=== PATIENT | female | born 1950 | race Caucasian/White ===

== ENCOUNTER 2023-06-02 02:58 | Emergency (ER) | payer MEDICARE, BC, SELFPAY ==
[2023-06-02 03:05] VITALS: BP 158/97; PULSE 83; RESP 16; TEMP 36.4; O2SAT 95; BMI 28.9
--- NOTE | 2023-06-02 03:21 | ED_ITS ---
HPI - General Adult General Chief complaint: Sore Throat Stated complaint: difficulty breathing Time Seen by Provider: 06/02/23 03:20 History of Present Illness HPI narrative: Patient is a 73-year-old woman who comes in today with a 3 day history of pharyngitis. She was seen at the [facility] earlier today rapid strep and COVID testing were negative. Patient was placed on azithromycin and prednisone. She states the pain is severe. She has minimal cough no fevers no chills no night sweats no nausea no vomiting. She states that she is unable to control the pain with Tylenol Motrin. Related Data Home Medications Medication Instructions Recorded Confirmed amoxicillin 250 mg capsule 250 mg PO 01/19/22 01/30/23 omeprazole 20 mg capsule,delayed 20 mg PO QDAY 01/19/22 06/02/23 release azithromycin 250 mg tablet 250 mg PO DIRECTED 06/02/23 06/02/23 rosuvastatin 20 mg tablet 20 mg PO QPM 06/02/23 06/02/23 Allergies Allergy/AdvReac Type Severity Reaction Status Date / Time cefpodoxime Allergy Hives Verified 01/30/23 09:23 ciprofloxacin Allergy Verified 01/30/23 09:23 metronidazole Allergy Hives Verified 01/30/23 09:23 nitrofurantoin Allergy Verified 01/30/23 09:23 Sulfa (Sulfonamide Allergy Verified 01/30/23 09:23 Antibiotics) valdecoxib Allergy Verified 01/30/23 09:23 Review of Systems Status of ROS: Reports: 10 or more systems reviewed and unremarkable except as noted in History and below [facility] Medical History Perforated diverticulum ?K57.80 - Diverticulitis of intestine, part unspecified, with perforation and abscess without bleeding (ICD-10) Acute diverticulitis of intestine ?K57.92 - Diverticulitis of intestine, part unspecified, without perforation or abscess without bleeding (ICD-10) Ganglion cyst ?M67.40 - Ganglion, unspecified site (ICD-10) Internal impingement of left shoulder ?M75.42 - Impingement syndrome of left shoulder (ICD-10) Surgical History History of partial colectomy ?Z90.49 - Acquired absence of other specified parts of digestive tract (ICD- 10) H/O: hysterectomy ?Z90.710 - Acquired absence of both cervix and uterus (ICD-10) Social History Narrative: -Pat celebrating 53 years of marriage Smoking Status: Never smoker Do you use any of these nicotine containing products: None Second hand tobacco smoke exposure: No Exam Narrative: Exam Narrative: EXAM GENERAL: Patient appears comfortable and well. EYES: No scleral icterus. ENT: oropharynx normal. THYROID: no thyroid nodules or thyromegaly. LYMPH: No supraclavicular or cervical lymphadenopathy. SKIN: Visible skin seen during exam normal or with benign process only. EXT: No dependent lower extremity pedal edema. HEART: Regular rate and rhythm with no murmurs, rubs, or gallops. LUNGS: Clear to auscultation bilaterally with no crackles or wheezes. ABD: Soft, non tender, non distended. PSYCH: Good eye contact, speech is not pressured. Const: Vital Signs, click to edit/add: Vital Signs - 24 hr 06/02/23 03:05 Temperature 97.5 F L Pulse Rate [Pulse Oximeter] 83 Respiratory Rate 16 Blood Pressure [Ri ght Upper Arm] 158/97 H Pulse Oximetry 95 Oxygen Delivery Me thod Room Air Course Course ED Course: Patient seen and examined. Vital Signs Vital signs: Initial Vital Signs Temperature 97.5 F L 06/02/23 03:05 Temperature Source Temporal Artery Scan 06/02/23 03:05 Pulse Rate 83 06/02/23 03:05 Respiratory Rate 16 06/02/23 03:05 Blood Pressure 158/97 H 06/02/23 03:05 Blood Pressure Mean 117 H 06/02/23 03:05 Blood Pressure Position Sitting 06/02/23 03:05 Pulse Oximetry 95 06/02/23 03:05 Oxygen Delivery Method Room Air 06/02/23 03:05 Vital Signs Temperature 97.5 F L 06/02/23 03:05 Pulse Rate 83 06/02/23 03:05 Respiratory Rate 16 06/02/23 03:05 Blood Pressure 158/97 H 06/02/23 03:05 Pulse Oximetry 95 06/02/23 03:05 Oxygen Delivery Method Room Air 06/02/23 03:05 Temperature 97.5 F L 06/02/23 03:05 Pulse Rate 83 06/02/23 03:05 Respiratory Rate 16 06/02/23 03:05 Blood Pressure 158/97 H 06/02/23 03:05 Pulse Oximetry 95 06/02/23 03:05 Oxygen Delivery Method Room Air 06/02/23 03:05 Medical Decision Making MDM Narrative Medical decision making narrative: Patient is a 73-year-old woman who comes in today with severe pharyngitis. She has a normal exam. I see no evidence of peritonsillar abscess. No lymphadenopathy. Patient has been placed on antibiotics and steroids had the [facility]. I did prescribe [place] 1-2 every 4-6 as needed. We did repeat her strep and COVID testing which is pending. Will follow up based on those results. Discharge Plan Discharge Clinical Impression: Pharyngitis Condition: Stable Instructions: Pharyngitis (ED) Additional Instructions: [place] as directed Prednisone antibiotics as previously prescribed Follow-up with your doctor as needed. Activity Level: No Restrictions Discharge Diet: Regular Prescriptions: No Action omeprazole 20 mg capsule,delayed release(DR/EC) 20 mg PO QDAY amoxicillin 250 mg capsule 250 mg PO azithromycin 250 mg tablet 250 mg PO DIRECTED rosuvastatin 20 mg tablet 20 mg PO QPM Follow Up/Referrals: Nataly Rodríguez MD [Primary Care Provider] - Stand Alone Forms: [facility] Info Instructions
[2023-06-02 03:35] LABS: Strep A DNA Probe* NOT DETECTED (Not Detectd)
[2023-06-02 03:49] LABS: PCR FLU A Negative PCR FLU A (Negative); PCR FLU B Negative PCR FLU B (Negative); PCR RSV Negative PCR RSV (Negative); SARS PCR* Negative SARS-CoV-2 (Negative)
== END 2023-06-02 03:42 | disposition home or self-care (01) ==
LOC: ED 03:32
PROVIDERS: Emergency Provider Internal Medicine; PCP Family Medicine
DX: J02.9 Acute pharyngitis, unspecified (principal)
CPT/HCPCS: 87631; 87651; 99283

== ENCOUNTER 2023-11-08 14:20 | Outpatient (RCR) | payer MEDICARE, BC, SELFPAY ==
--- NOTE | 2023-11-08 16:29 | PT.OPEX ---
PT [place] Outpatient Eval PT [facility] Outpatient Eval Start: 11/08/23 16:04 Freq: Status: Active Protocol: Document 11/08/23 16:07 SURESH (Rec: 11/08/23 16:27 SURESH [id number]) E-signed By Daylin Zhao DPT Physical Therapy Outpatient Evaluation Insurance Information Recert Due Date 01/07/24 Insurance Name Medicare B,Blue Cross/Blue Shield Medical Diagnosis R knee OA R TKA 11/27/23 Treating Diagnosis R knee pain, R TKA scheduled for 11/27/23 Subjective Subjective Patient c/o R knee pain leading up to R TKA scheduled for 11/27/23. States she has been going to [facility] for her R knee pain. She has a home program that she is working on . She is scheduled for post TKA rehab at [facility], starting 11/28. Patient lives with spouse and he is able to assist as needed after surgery . She has a cane and is planning to borrow a walker from a friend. She has not been using an AD for amb. States she negotiates stairs with step to pattern. Date of Surgery (If applicable) 11/27/23 Current Work Status Retired Assessment Assessment/Impression Patient is a 73 year old female with chronic R knee pain leading up to R TKA scheduled for 11/27/23. She reports going to [facility] for her R knee pain leading up to surgery and is scheduled to continue her PT there after surgery. Patient seen in PT today for pre-op session to provide education/information on upcoming TKA surgery, safety information/HO, equipment instruction including use of FWW, and instruction in TKA exercises. Handouts issued for exercises , patient to perform them leading up to surgery. Reviewed PT/OT plan during hospital stay and patient is scheduled for OP PT post op. Patient lives with her spouse, he is able to assist as needed at home after surgery. 2 stairs with grab bars to enter from the garage. She lives in a rambler home, once inside she stays on the main level. Patient has a walk in shower. She is planning to get a shower chair and may get a commode for over the toilet . She will assess how she is doing getting up from the toilet using the vanity top. Patient is planning to borrow a walker from a friend - recommend she get a FWW. Patient reports having a high bed so she purchased a step stool to use as needed after surgery. She is planning to rent the ice machine with compression to use after surgery. Patient seen in PT for pre-op session only. She will resume her OP PT for TKA rehab at [facility] after surgery . No further PT scheduled at this clinic. Plan of Care Rehabilitation [facility] Good Physical Therapy Goals 1. Patient will be educated in TKA pre/post-op safety, mobility, and exercises with HOs provided within one visit. Patient scheduled for OP PT at [facility] PT post op. Coordination/Communication With Referral Source Frequency/Duration one pre-op session Patient Will Be Discharged From Therapy Completion of LTG(s),Skills Plateau,Independent w/HEP, Independently Progressing Evaluation Billing Untimed Code Treatment Minutes 35 Complexity Low Certification Information Initial Certification Date 11/08/23 Ending Certification Date 01/07/24 Provider Signature Required Yes Provider Signature Shows Agreement With POC & Medical Necessity Physician NPI Number Write NPI# Here Physician Comment/Change : Physician Signature & Date Requested Please Sign/Date Here
== END 2024-03-07 23:59 | disposition home or self-care (01) ==
PROVIDERS: PCP Family Medicine; Visit Provider Orthopaedic Surgery
DX: M17.11 Unilateral primary osteoarthritis, right knee (principal); Z96.651 Presence of right artificial knee joint; M25.561 Pain in right knee; Z51.89 Encounter for other specified aftercare
CPT/HCPCS: 97161

== ENCOUNTER 2023-11-27 07:18 | Day surgery (SDC) | payer MEDICARE, BC, SELFPAY ==
[2023-11-27] VITALS (34 sets, daily range): BP systolic 72–143; BP diastolic 41–77; PULSE 50–80; RESP 14–20; TEMP 35.6–36.6; O2SAT 90–100; BMI 29.5
--- OUTSIDE RECORDS SUMMARY | 2023-11-27 07:21 | XMS_ITS | Continuity of Care Document ---
Author Organization [facility] Address [address] [address] [place] [address] Phone Care Team Providers Care Compliance Review Specialist Name Role Phone Mamadou Delgadillo CRNA Unavailable [...] Diagnoses Date Provider Providers Copied on Encounter [facility] [place], [address] [address], [place], [place], [address], [place] tel:[phone] [facility] No Information 8 Elie Cedillo. [address], [id number], [place]. tel:[phone] Referring Provider: Clayton De La Paz MD, [address], [address]. tel:[phone] [facility] [place], [address] [address], [place], [place], [id number], [place] tel:[phone] [facility] Diverticulosis of large intestine without hemorrhageEncou nter for screening for malignant neoplasm of colonDvrtclos of lg int w/o perforation or abscess w/o bleeding 201 8 No Information Referring Provider: Nataly Rodríguez MD [address], [address], [place], [address]. tel:[phone] Family History Family Member Type Diagnosis Age At Onset Son Problem (finding) Alive and well Brother Problem (finding) Father Problem (finding) malignant neoplasm of u rinary bladder Father Problem (finding) Sister Problem (finding) Mother Problem (finding) Payers Payer name Insurance type Covered libertarian ID Authoriza tion(s) Medicare NGS MB [id number] Blue Cross [place] Blue BL [id number] Social History Type Description Quantity Date Captured [...]
--- OUTSIDE RECORDS SUMMARY | 2023-11-27 07:21 | XMS_ITS | Clinical Summary ---
Author Organization [facility] Address [place], [place] [address] Care Team Providers Care Case Operator Name Role Phone Nataly Rodríguez MD Primary Care Provide r Allergies Active Allergy Reactions Criticality Noted Date Comments Valdecoxib Hives 06/22/2006 Ciprofloxacin Hives 10/29/2009 Nitrofurantoin Hives 06/22/2006 Metronidazole Hives 11/08/2017 Scopolamine Hives 09/03/2014 Sulfa (Sulfonamide Antibiotics) Hives 05/26 Cefpodoxime Hives 11/08/2017 Medications Medication Sig Dispensed Refills Start Date End Date Status cholecalciferol (Vitamin D) 1,000 unit capsuleIndications:Ost eopenia, unspecified location Take 1 Capsule (1,000 units) by mouth once daily. 0 06/28/2022 Active durable medical equipment (DME)Indications:Prima ry osteoarthritis of right knee,Acquired genu valgum of right knee,Pain of meniscus of right knee Eleonora Alva [id number] Length of Use: 99 months 0 09/18/2022 Active omeprazole (PRILOSEC) 20 mg Delayed-Release capsuleIndications:Gas troesophageal reflux disease with esophagitis, unspecified whether hemorrhage Take 1 Capsule (20 mg) by mouth once daily before a meal. 90 Capsule 3 01/23/2023 Active amoxicillin (AMOXIL) 250 mg capsuleIndications:His tory of UTI Take one after intercourse. 60 Capsule 1 01/23/2023 Active rosuvastatin (Crestor) 20 mg tabletIndications:Athe rosclerosis Take 1 Tablet (20 mg) by mouth at bedtime. 90 Tablet 3 04/24/2023 Active polyethylene glycol 3350 (MIRALAX ORAL) Take by mouth. A ctive Active Problems Problem Noted Date Diagnosed Date Sigmoid diverticulitis 02/01/2018 Gastroesophageal reflux disease without esophagi tis 09/05/2016 Overview: EGD 08/2016 normal EGD 10/2020 reflux esophagitis, no Nazario's esophagus Tongue distortion 09/03/2014 Osteoporosis 10/01/2012 Diverticulosis of colon (without mention of hemo rrhage) 09/15/2010 Overview: Colonoscopy 08/2010 diverticulosis repeat in 10 years Personal history of urinary (tract) infection Temporomandibular joint disorders, unspecified 0 06/22/2006 Resolved Problems Problem Noted Date Diagnosed Date Resolved Date Osteopenia 09/29/2010 10/01/2012 Encounters Date Type Department Care Team Description 11/20/2023 Orders Only [facility] [address] [place] [address] Kassi Anna PA 1 scan: (1-Ord) NFLD-EKG-11/19/23 11/19/2023 7:30 AM CDT Preop Visit [facility] [address] [place] [address] Kassi Anna PA Preoperative Exam (Right knee replacement-Dr. Damian-[facility] 11/27/23) 11/18/2023 Travel 10/03/2023 9:40 AM CDT Office Visit [facility] [address] [place] [address] Gonzlao José MD Musculoskeletal Problem (Follow up Right Knee ) 10/03/2023 Travel from Last 3 Months Immunizations Name Administration Dates Next Due AMB Influenza, IIV3 (Age >=3 years)(Flu Clinic Only) 01/02/2013 AMB Influenza, IIV4 PF (=>6 mos Flulaval,Fluzone Fluarix)(Flu Clinic Only) 12/30/2016,02/09/2016 Amb Influenza, Inact (High-d ose) (Flu Clinic Only) 01/13/2015 COVID-19 Vaccine Spikevax (M oderna 50mcg/0.5mL) 12YO+ 4070-2716 Formula PF 01/23/2023 COVID-19 vaccine (Moderna 10 0mcg/0.5mL) PF, MDV 07/18/2021 COVID-19 vaccine (Moderna 50 mcg/0.5mL) 12YO+ BIVALENT PF, MDV 07/31/2022,12/13/2021 Hepatitis A (Adult) 08/10/2011,01/18/2010 Hepatitis B (Adult) 04/02/2014,01/20/2014 Influenza A (H1N1), Inactivated 04/13/2009 Influenza A (H1N1), Inactiva rubi (Age >=3 Years) 04/13/2009 Influenza RIV4 (Age 18+ Years) PRESERV FREE 11/25 Influenza, High-dose Inactivated 12/23/2019,12/25,01/20/2014 Influenza, High-dose Quadriv alent Inactivated 12/30/2021 Influenza, IIV3 (Age 6-35 mos) 04/13/2009 Influenza, IIV3 (Age >=3 years) 01/18/2010,04/13 Influenza, Inactivated AIIV4 (Age 65+ Years) Preserv Free 12/26/2022,01/07/2021 Influenza, Inactivated IIV3 (Age 65+ Years) Preserv Free 01/15/2018 Pneumococcal Poly,23-Valent (Pneumovax) 09/03/19 14 Pneumococcal conj 13-Valent (Prevnar 13) 016 Tdap 04/07/2020,01/18/2010 Typhoid (injectable) 01/18/2010 Zoster (Shingrix-RZV, recombinant) 11/21/2018, Zoster (Zostavax-ZVL, live) 09/09/2010 Family History Medical History Relation Name Comments Heart Disease Brother Age 65 Cancer Father bladder Other Mother parkinson's dis ease Heart Disease Sister 1 Age 65 Stroke Sister 2 After mva, skin cancer Cancer-breast No Family History Relation Name Status Comments Brother Father Mother Sister 1 Sister 2 Social History Tobacco Use Types Packs/Day Years Used Date Smoking Tobacco: Never Smokeless Tobacco: Never Tobacco Cessation:Counseling Given: No Alcohol Use Standard Drinks/Week Comments Not Currently 0 (1 standard drink = 0.6 oz pur e alcohol) PHQ-2 Answer Date Recorded PHQ-2 TOTAL SCORE 0 01/23/2023 Social Connections Answer Date Recorded Frequency of Communication with Friends and Fami ly 0 01/23/2023 Financial Resource Strain Answer Date R ecorded Difficulty of Paying Living Expenses 3 01/23/2023 Difficulty of Paying Living Expenses Not on file 01/23/2023 Food Insecurity Answer Date Recorded Worried About Running Out of Food in the Last Ye ar 1 01/23/2023 Transportation Needs Answer Date Record ed Lack of Transportation (Medical) 1 01/23/2023 Housing Stability Answer Date Recorded Unable to Pay for Housing in the Last Year 1 01/23/2023 Sex and Gender Information Value Date Recorded Sex Assigned at Not on file Gender Identity Not on file Sexual Orientation Not on file Obstetrics History Para Term AB IAB SAB Ectopic Multiple Livin g Live Births 3 2 2 1 1 2 Date Outcome GA Total Labor Labor/2nd/3rd Weight Sex Type Anes PTL Antionette A1 A5 Name Clin Term Term SAB Last Filed Vital Signs Vital Sign Reading Time Taken Comments Blood Pressure 98/68 11/19/2023 7:38 AM CDT Pulse 72 11/19/2023 7:38 AM CDT Temperature 36.4 ??C (97.5 ??F) 10/03/2023 9:42 AM CD T Respiratory Rate 16 05/13/2018 10:08 AM CRYPTOLOGIC LINGUIST Oxygen Saturation 99% 11/19/2023 7:38 AM CDT Inhaled Oxygen Concentration - - Weight 71.2 kg (157 lb) 11/19/2023 7:38 AM CDT Height 156 cm (5' 1.42) 11/19/2023 7:38 AM CDT Body Mass Index 29.26 11/19/2023 7:38 AM CDT Plan of Treatment Upcoming Encounters Date Type Department Care Team (Late st Contact Info) Description 01/25/2024 8:25 AM CDT Office Visit [facility] [address] [place] [address] Nataly Rodríguez MD [address] [place] [address] Health Maintenance Due Date Last Done Comments COVID-19 vaccine series (8 - 2022-24 season) 2023 01/23/2023, 07/31/2022, 12/13/2021, Additional history exists Influenza for age 65+ 11/25/2023 12/26/2022 , 12/30/2021, 01/07/2021, Additional history exists Depression screening for age 12+ 01/24/2024 01/23/2023, 01/12/2022, 01/07/2021, Additional history exists Medicare Wellness for age 65+ 01/24/2024, 01/12/2022, 01/07/2021, Additional history exists BMI (ht and wt on same day) for age 18+ 11/18/2024 11/19/2023, 04/24/2023, 01/23/2023, Additional history exists Colonoscopy through age 75 10/20/202710/19, 10/19/2017, 09/15/2010, Additional history exists Lipids for age 45-75 07/22/2028 07/23/2023, 01/23/2023, 01/17/2022, Additional history exists Tetanus booster 04/07/2030 04/07/2020, 01/18/2010 Pneumococcal series for age 65+ Completed 6, 09/02/2013 Zoster (shingles) series for age 50+ Completed 11/21/2018, 09/14/2018, 09/09/2010 Tdap Completed 04/07/2020, 01/18/2010 Hepatitis C screening for ag e 18-79 Completed 07/12/2020 DEXA/DXA scan for age 65+ Completed 2022, 09/04/2016, 09/04/2014, Additional history exists Procedures Procedure Name Priority Date/Time Associated Diagnosis Comments EKG 12 LEAD Routine 11/20/2023 7:38 AM CDT Pre-op exam MO READING EKG - NO CHARGE, COMP ONLY Routine 11/20/2023 7:37 AM CDT Pre-op exam HEMOGLOBIN Routine 11/19/2023 8:20 AM CDT Pre-op exam BASIC METABOLIC PANEL Routine 11/19/2023 8:20 AM CDT Pre-op exam LIPID PANEL Routine 07/23/2023 8:40 AM CDT Atherosclerosis XR DXA BONE DENSITY 2 SITES AXIAL Routine 06/26/2022 10:58 AM CDT Osteopenia, unspecified location ANTI HCV Routine 07/12/2020 8:36 AM CDT Need for hepatitis C screening test SCAN-COLONOSCOPY 10/19/2017 1:45 PM CDT from Last 3 Months or Most Recently Relevant to Health Maintenance Results * EKG 12 LEAD (11/20/2023 7:38 AM CDT) Kassi LACKEY EKG ORD * MO READING EKG - NO CHARGE, COMP ONLY (11/20/2023 7:37 AM CDT) Kassi LACKEY PB - PROVIDER READ INGS * HEMOGLOBIN (11/19/2023 8:20 AM CDT) HEMOGLOBIN 13.8 12.0 - 16.0 g/dL 11/19/2023 8:26 AM CDT [facility] MCV 92 80 - 100 fL 11/19/2023 8:26 AM CDT [facility] Blood BLOOD SPECIMEN / Unknown Venipuncture / Unknown 11/19/2023 8:20 AM CDT 11/19/2023 8:21 AM CDT Kassi LACKEY HEMATOLOGY [facility] [address] [place] [address], * (ABNORMAL) BASIC METABOLIC PANEL (11/19/2023 8:20 AM CDT) SODIUM 131(L) 136 - 145 mmol/L 11/19/2023 2:12 PM CDT [facility] POTASSIUM 4.7 3.5 - 5.1 mmol/L 11/19/2023 2:12 PM CDT [facility] CHLORIDE 97(L) 98 - 107 mmol/L 11/19/2023 2:12 PM CDT [facility] CO2,TOTAL 25 22 - 29 mmol/L 11/19/2023 2:12 PM CDT [facility] ANION GAP 9 5 - 18 11/19/2023 2:12 PM T [facility] GLUCOSE 104(H) 70 - 99 mg/dL 11/19/2023 2:12 PM CDT [facility] CALCIUM 9.6 8.8 - 10.2 mg/dL 11/19/2023 2:12 PM CDT [facility] BUN 12 8 - 23 mg/dL 11/19/2023 2:12 PM T [facility] CREATININE 0.83 0.50 - 0.90 mg/dL 11/19/2023 2:12 PM T [facility] BUN/CREAT RATIO 14 10 - 20 2:12 PM T [facility] eGFR 74(L) >90 mL/min/1.7 3m2 11/19/2023 2:12 PM T [facility] Comment:As of 2021, eG FR is calculated by the CKD-EPI creatinine equation without race adjustment. ??eGFR can be influenced by muscle mass, exercise, and diet. ??The reported eGFR is an estimation only and is only applicable if the renal function is stable. Blood BLOOD SPECIMEN / Unknown Venipuncture / Unknown 11/19/2023 8:20 AM CDT 11/19/2023 8:21 AM CDT Kassi LACKEY [facility] [address] [place] [address], * LIPID PANEL (07/23/2023 8:40 AM CDT) CHOLESTEROL,TOTAL 137 100 - 199 mg/dL 07/24/2023 5:35 AM CDT [facility] Comment: Cholesterol, Total Reference Ranges Desirable <200 mg/dL Borderline 200-239 mg/dL High >=240 mg/dL TRIGLYCERIDES 88 <150 mg/dL 07/24/2023 5:35 AM CDT [facility] HDL CHOLESTEROL 59 >40 mg/dL 5:35 AM CDT [facility] NON-HDL CHOLESTEROL 78 <145 mg/dl 07/24/2023 5:35 AM CDT [facility] CHOL/HDL RATIO 2.32 <4.50 07/24/2023 5:35 AM CDT [facility] LDL CHOLESTEROL 60 <=130 mg/dL 07/24/2023 5:35 AM CDT [facility] VLDL CHOLESTEROL 18 <=30 mg/dL 07/24/2023 5:35 AM CDT [facility] PROVIDER ORDERED STATUS RANDOM 07/24/2023 5:35 AM CDT [facility] Blood BLOOD SPECIMEN / Unknown Venipuncture / Unknown 07/23/2023 8:40 AM CDT 07/23/2023 8:40 AM CDT Alisha Trujillo MD CHEMISTRY Performing Organization Address City/[facility]/ZIP Co de Phone Number [facility] [address] [place] [address], * (ABNORMAL) XR DXA BONE DENSITY 2 SITES AXIAL (06/26/2022 10:58 AM CDT) Anatomical Region Laterality Modality Spine, HIPS, HIPL, HIPR Other Impressions 06/26/2022 1:34 PM CDT Osteopenia. RECOMMENDATIONS: The National Osteoporosis Foundation recommends pharmacologic treatment for patients with T-scores of -2.5 or less, patients with prior history of fragility fractures, or patients with 10-year probability of greater than 3% at hips or greater than 20% of suffering major osteoporotic fractures. Recommend continued optimization of calcium and vitamin D intake through dietary means and/or supplementation and regular exercise. Consider pharmacologic therapy for osteopenia with increased fracture risk. Follow-up bone density reading in 2 years if therapy initiated to assess therapeutic efficacy. Odette Younger PA-C [facility] 06/26/2022 Narrative 06/26/2022 1:34 PM CDT For Patients: Results are automatically released to your [facility] ([email or web address]) account once available, in compliance with federal regulations. This means that you may see your results before your provider has had a chance to review them. Please allow 2-3 business days for your provider to comment on the results. XR DXA Bone Mineral Density (BMD) EXAM LOCATION: [address] [address] PATIENT NAME: Shefali Sanders DATE OF : 1950 EXAM DATE: 06/26/2022 REQUESTING PROVIDER: Nataly Rodríguez MD GENDER AT : female HEIGHT: 5' 1.5 (01/12/2022) WEIGHT: ??154 lb 9.6 oz (03/13/2022) MENOPAUSAL STATUS: Postmenopausal RACE/ETHNICITY: White RISK FACTORS: Depo Provera, Family History of Hip Fracture (parental) and White Race CURRENT MEDICATION FOR BONE LOSS: NONE INDICATION: Follow-up of existing osteopenia and Post-Menopause COMPARISON DATE(S): 2016 DXA scans are compared to prior studies for a patient only when the two (or more) studies were performed on the same scanner. It is not possible to compare data generated on one scanner to data from another because there are not standards in DXA equipment. This applies even if the two scanners are made by the same electronic lab technician. PROCEDURE: Dual-energy x-ray absorptiometry performed with routine technique. Reporting is completed in the form of a T-score. The T-score represents the standard deviation from peak bone mass based on young healthy adult. A Z-score is used for diagnosis in premenopausal women, and for men under the age of 50. FINDINGS: RESULT LUMBAR SPINE L1 - L3 ??BMD: 0.890 g/cm2 T-Score: - 2.4 Z-Score: - 0.8 Change from prior in 2017: ??Decrease 5.8%. RESULTS FEMUR Left femoral neck BMD: 0.940 g/cm2 T-Score: - 0.7 Z-Score: + 1.1 Change from prior in 2017: ??Decrease 1.7%. Right femoral neck BMD: 0.875 g/cm2 T-Score: - 1.2 Z-Score: + 0.6 Change from prior in 2017: ??Decrease 5.7%. Left hip BMD: 0.946 g/cm2 T-Score: - 0.5 Z-Score: + 1.1 Change from prior in 2017: ??Decrease 2.2%. Right hip BMD: 0.881 g/cm2 T-Score: - 1.0 Z-Score: + 0.6 Change from prior in 2017: ??Decrease 5.6%. WHO criteria: Normal: T-score at or above -1 SD Osteopenia: T-score between -1.1 and -2.4 SD Osteoporosis: T-score at or below -2.5 SD FRAX RISK CALCULATION (USED FOR OSTEOPENIA ONLY): 10-year probability of major osteoporotic fracture: 15.3%. 10-year probability of hip fracture: 5.8%. Nataly Rodríguez MD DEXA * ANTI HCV (07/12/2020 8:36 AM CDT) HEPATITIS C ANTIBODY Non-React malvin Non-React malvin 07/12/2020 4:28 PM CDT [facility] Comment:Antibodies to HCV no t detected; does not exclude the possibility of exposure to HCV. Blood BLOOD SPECIMEN / Unknown Venipuncture / Unknown 07/12/2020 8:36 AM CDT 07/12/2020 8:36 AM CDT Nataly Rodríguez MD SEND OUTS [facility] [address] [place] [address], [place] * SCAN-COLONOSCOPY (10/19/2017 1:45 PM CDT) Narrative Procedure Note Lorena Canela MD - 10/19/2017 12:51 PM CDT [facility], [address], [address], [place] [address] Patient Name: Shefali Sanders Gender: Female Exam Date: 10/19/2017 Visit Number: [id number] Age: 67 Years 5 Months Date of : 1950 Attending MD: Lorena Canela MD Medical Record#: [id number] ----- Procedure: Colonoscopy Indications: Recent history of diverticulitis Referring MD: Nataly Rodríguez MD Primary MD: Nataly Romo MD, Resident/Fellow performed or assisted with theprocedure under supervision from Lorena Canela MD Medications: Admitting Medications: 0.9% Normal Saline at TKO Intra Procedure Medications: Patient received monitored anesthesia care. Complications: No immediate complications Withdrawal time: 11 minutes Procedure: An examination of the heart and lungs was performed and found to be withinacceptable limits. The patient was therefore deemed a reasonablecandidate for endoscopy and monitored anesthesia care. The risks and benefits of the procedure were explained to the patient.After obtaining informed consent, the patient received monitoredanesthesia care and I passed the scope without difficulty via the rectum to the cecum. The appendiceal orificeand ic valve were identified. The scope was retroflexed during theexamination The quality of the prep was excellent (Miralax/Gatorade/2tablets Bisacodyl/Magnesium Citrate). This was a complete examination throughout the entire colon. Findings: Diverticulosis. Location: - ascending colon - distal sigmoid colon.Description: moderate. Size: small. Quantity: several. Noinflammation present. Short segment distal sigmoid colon with moderatediverticular disease. Remainder of the exam is normal. Impression: Diverticulosis of large intestine without hemorrhage Plan Repeat colonoscopy in 10 years. If you have signs or symptoms of lower GI illness or a new diagnosis ofcolon cancer in an immediate family member, you should contact your GIprovider or your primary provider to discuss whether your next examshould be repeated sooner. We will attempt to contact you at appropriate intervals via U.S. mail. Wemay not be able to find you or contact you at that time, therefore youshould know that the responsibility for following our recommendation restswith you. If you don't hear from us at the time your procedure is due,please contact our office to schedule an appointment. If your contactinformation should change, please contact our office so that we can updateyour records. Electronically signed by: Lorena Canela MD 10/19/2017 Medications: Medication Dose Sig Description Comments Vitamin D3 UNKNOWN take 2 capsule by oral route every day Allergies: Medication Name Ingredient Reaction Comment NITROFURANTOIN CIPROFLOXACIN Vantin CEFPODOXIME PROXETIL METRONIDAZOLE Macrodantin NITROFURANTOIN MACROCRYSTALLINE Bextra VALDECOXIB SULFA (SULFONAMIDE ANTIBIOTICS) Vital Signs: Date Time Systolic Diastolic Height Weight BMI 10/19/2017 1:13 PM 107 63 62 in 140.00 25.60 10/19/2017 2:36 PM 93 58 Race: Ethnicity: Not or Preferred Language: Korean cc: Nataly Rodríguez MD cc: Nataly Rodríguez MD [facility] [phone] Lorena Canela MD OTHER from Last 3 Months or Most Recently Relevant to Health Maintenance Advance Directives Documents on File Type Date Recorded Patient Bolt Sorter Expl anation Healthcare Directive 02/06/2018 8:13 AM * Full Code (Latest Code Status on File) Date Activated Date Inactivated Comments 01/31/2018 10:18 AM 02/02/2018 3:15 PM Care Teams Case Operator Relationship Specialty Start Date End Date Nataly Rodríguez MD [address] [place] [address] PCP - General 07/14/05
--- OUTSIDE RECORDS SUMMARY | 2023-11-27 07:21 | XMS_ITS | Continuity of Care Document ---
Author Organization [facility] Address [address] [address] [place] [address] Care Team Providers Care Building Operator Name Role Phone [place], [place] Unavailable Unav ailable Procedures Procedure Date Colono Pt Doc Pt W/o Advance Directives Directive Yes / No Effective Date File Name No Information Encounters Encounter Description Practice Location Reason(s) For Visit Diagnoses Date Provider Providers Copied on Encounter [facility], [address] [address], [place], [place], [id number], [place] [facility] No Information [facility]. [address] [address], [place], [place], [id number], . tel:[phone] Family History Family Member Type Diagnosis Age At Onset No Information Payers Payer name Insurance type Covered democrat ID Authoriza tion(s) Medicare NGS MB [id number] Blue Cross [place] [employer] [place] [id number] Social History Type Description Quantity Date Captured [...]
[2023-11-27] MEDS: SODIUM CHLORIDE 0.9 % (FLUSH) 10 ML SYRINGE IVF (08:00)
[2023-11-27] MEDS: LACTATED RINGERS 1000 ML 1,000 ML 100 ML IV ×2 (08:00→10:59)
[2023-11-27] MEDS: OXYCODONE (CR) 10 MG TAB.ER.12H PO (08:06)
[2023-11-27] MEDS: ACETAMINOPHEN 500 MG TABLET 1000 MG PO ×3 (08:06→20:19)
[2023-11-27] MEDS: MIDAZOLAM HCL 1 MG/ML inj IVP (09:04)
[2023-11-27] MEDS: fentaNYL 100 MCG/2 ML inj IVP (09:04)
--- NOTE | 2023-11-27 09:05 | SUR.PREOP ---
TIME?OUT:?0903 PT/RN/MDA?VERIFICATION?OF?SURGICAL?SITE,?PROCEDURE,?AND?CONSENT OBTAINED?PRIOR?TO?INVASIVE?PROCEDURE. all in agreement.
[2023-11-27] MEDS: CEFAZOLIN 2 GM INJ IVP (09:25)
[2023-11-27] MEDS: TRANEXAMIC ACID 100 MG/ML INJ 1000 MG IV (09:28)
--- NOTE | 2023-11-27 09:39 | W.PM.NB ---
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 Images saved: Yes Medications given in 5ml increments after negative aspiration: Ropivicaine %: 0.5 mL: 20 Needle gauge: 20 Decadron (mg): 10 Precedex (mcg): 25 Patient tolerated procedure well: Yes Additional comments: Needle noted adjacent to nerve Block Charges Block Charge (with Pro Fee): Femoral Nerve Use of Ultrasound Machine for Block: Yes- US Guidance/pain block
--- NOTE | 2023-11-27 09:40 | P.NB_ITS ---
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
--- NOTE | 2023-11-27 09:40 | W.ANESCHARGE ---
Anesthesia Charges Start Date/Time Anesthesia Start Date: 11/27/23 Anesthesia Start Time: 09:14 Stop Date/Time Anesthesia Stop Date: 11/27/23 Anesthesia Stop Time: 11:38 Summary Extremes of Age - Over 70 or under 1: MDA
--- NOTE | 2023-11-27 11:18 | CRLHL7_ITS ---
For Patients: As a result of the Cures Act, medical imaging exams and procedure reports are released immediately into your electronic medical record. You may view this report before your referring provider. If you have questions, please contact your health care provider. INDICATION: Postop TKA TECHNIQUE: Three views right knee FINDINGS/IMPRESSION: Right knee arthroplasty in appropriate position postoperative soft tissue edema and gas. Dictated by Sujatha Gardner MD @ 11/27/2023 2:43:06 PM (Electronically Signed)
--- NOTE | 2023-11-27 11:22 | P.ORPRC_ITS ---
Procedure Note Date of procedure: 11/27/23 Procedure: PREOPERATIVE DIAGNOSIS: Right knee osteoarthritis POSTOPERATIVE DIAGNOSIS: Right knee osteoarthritis NAME OF OPERATION: Right total knee arthroplasty SURGEON: Sony Damian MD COURT CLERK: SHANTI Parikh ANESTHESIA: Spinal ESTIMATED BLOOD LOSS: 0 mL COMPLICATIONS: None SPECIMENS: None DRAINS: None PREOPERATIVE ANTIBIOTICS: Ancef 1 g IMPLANTS: 1. J&J Attune #4 posterior stabilized femur 2. #3 fixed-bearing tibia 3. #4 posterior stabilized, 5 mm fixed-bearing polyethylene 4. 35 patella INDICATIONS: The patient is a 73-year-old with a longstanding history of severe, unrelenting right knee pain secondary to end-stage (grade IV) right knee osteoarthritis. Despite appropriate nonoperative management, including activity modification, anti-inflammatories, [id number] pain medication, bracing, physical therapy, and injections they continue to have pain and disability. Operative intervention was offered. The risks, benefits and expected outcomes were discussed in detail. These included but were not limited to: Infection, bleeding, injury to blood vessel or nerve, venous thromboembolism. All questions were answered to their satisfaction. Use of an car rental sales assistant was necessary throughout the case for patient positioning and safety, soft tissue retraction, and closure. PROCEDURE: Spinal anesthesia was administered. The patient was placed supine on the operating table. The car rental sales assistant made sure the patient was positioned appropriately. The lower extremity was prepped and draped in the usual sterile fashion. The limb was exsanguinated with the Barber bandage. The pneumatic tourniquet was inflated to 300 mmHg. A standard anterior incision was made with the knee in flexion. Subcutaneous dissection was sharply taken through fascial layer #1. Full-thickness medial and lateral flaps were elevated. The car rental sales assistant retracted the soft tissues and protected them throughout the case. A standard subvastus approach was made. The patella was subluxed. The infrapatellar fat pad was debrided. The menisci and cruciate ligaments were sharply d?brided. Marginal osteophytes were d?brided with the rongeur. The drill was used to penetrate the femoral canal. The canal was aspirated and irrigated with pulse lavage. The intramedullary femoral guide was placed for a 5-degree valgus cut, removing 10 mm off the distal femur. The saw was used to make the cut. Attention was then turned to the proximal tibia. The extramedullary tibial guide was placed for a neutral varus/valgus cut with 5 degrees of posterior slope, removing 0 mm based off the medial tibial surface. The car rental sales assistant protected the collateral ligaments and the neurovascular bundle. The saw was used to make the cut. The dog bone was placed. The knee was tight in extension. Therefore, the distal femoral cutting guide was replaced, advancing it 2 mm proximally. The saw was used to make the cut. [place] line and the trans epicondylar axis were marked. The femoral sizing guide was pinned onto the distal femur. Three degrees of external rotation nicely parallels the transepicondylar axis. Pins were placed for posterior referencing. The four-in-one cutting guide was pinned onto the distal femur. The anterior, posterior, and chamfer cuts were made. The car rental sales assistant protected the collateral ligaments. The box cutting guide was pinned. The box cuts were made. The boxed trial was placed and was an excellent fit. Drill holes for the lugs were made. Trial components were placed. The knee is still tight in both flexion and extension. Therefore, we replaced the tibial cutting guide, advancing it 2 more mm distally and recut the tibia. Trial components were placed and now the knee is nicely balanced in both flexion and extension. Valgus instability that was present preoperatively has been nicely corrected. The trial components were removed. The tray was placed in appropriate rotation, parallel to our tibial cutting pins. It was pinned by the car rental sales assistant and the drill and the punch were used. The tray was removed. The punch was used again. We placed a bone plug in the femoral canal. Attention was then turned to the patella. [place] patellar thickness was 20 mm. The lobster claw resection guide was used with the 7.5 mm wesley. The saw was used to make the cut. Drill holes were made by the car rental sales assistant. The trial was placed and was an excellent fit. Cancellous surfaces were irrigated with pulse lavage and thoroughly dried by the car rental sales assistant. We cemented the tibial component, then the femoral component. We impacted the 5 mm polyethylene onto the tibial tray. The knee was brought into full extension. We then cemented the patellar component. Excessive cement was removed. The cement was allowed to harden. The knee was taken through a range of motion and was found to be nicely balanced in both flexion and extension. The patella tracks centrally. The car rental sales assistant did a three minute dilute Betadine solution soak. The car rental sales assistant irrigated the wound with 3 liters of normal saline via pulse lavage. The car rental sales assistant reapproximated the extensor mechanism with #1 Vicryl in an interrupted qnitgi-hz-ynmci fashion. The car rental sales assistant then ran the extensor mechanism with a #1 PDO Stratafix. The car rental sales assistant closed the subcutaneous tissues with a 3-0 Stratafix and the skin with a running 3-0 Stratafix in a subcuticular fashion. Glue was used to seal the skin. The car rental sales assistant placed a dry dressing. Sponge and needle counts were correct x2. The patient tolerated the procedure well. There were no apparent complications. They were carefully transferred to the hospital bed and taken to the postanesthesia care unit in satisfactory condition. PLAN: The patient will be mobilized with physical therapy. Aspirin will be used for DVT prophylaxis. They will be discharged to home once medically appropriate.
--- NOTE | 2023-11-27 11:41 | W.ANESCHARGE ---
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
[2023-11-27 13:40] LABS: Troponin I* < 0.01 ng/mL (0.01-0.04)
[2023-11-27] MEDS: OXYCODONE 5 MG TABLET PO ×2 (14:03→20:19)
[2023-11-27] MEDS: ONDANSETRON 2 MG/ML inj 4 MG IVP (15:00)
[2023-11-27] MEDS: CEFAZOLIN 1 GM in 0.9 % SODIUM CHLORIDE Mini-bag 100 ML IVPB ×2 (15:09→23:24)
--- NOTE | 2023-11-27 15:40 | P.IMCN_ITS ---
Date of Consult Patient: Bunny Patient Consult date: 11/27/23 Requesting Physician: Orthopedics Primary Care Provider: Nataly Rodríguez MD Consult Narrative Reason for consult: Medical management of comorbidities Narrative: Shefali Sanders is a 73 year old female who presented to the hospital today for an elective R TKA. There were no surgical or anesthetic complications noted during procedure. Patient's H&P reviewed, PCP is Dr. Rodríguez. Past medical history significant for: elevated CT Calcium score (reassuring TTE 03/2023, on statin), h/o UTIs Postoperative plan: Home with Patient had a short episode of right shoulder pain upon arrival to the floor postoperatively. EKG and troponin obtained; both negative. Repeat troponin at 2 hours also negative, Hgb 11.9 Patient noted to have mild postoperative hypotension without lightheadedness or dizziness; on chart review, she typically runs low. Blood pressure at her preoperative visit was 98/68. Review of Systems Status of ROS: Reports: 10 or more systems reviewed and unremarkable except as noted in History and below [facility] Medical History (Updated 11/27/23 @ 17:51 by Adriana Cornejo MD) Perforated diverticulum ?K57.80 - Diverticulitis of intestine, part unspecified, with perforation and abscess without bleeding (ICD-10) Acute diverticulitis of intestine ?K57.92 - Diverticulitis of intestine, part unspecified, without perforation or abscess without bleeding (ICD-10) Ganglion cyst ?M67.40 - Ganglion, unspecified site (ICD-10) Internal impingement of left shoulder ?M75.42 - Impingement syndrome of left shoulder (ICD-10) Surgical History (Updated 11/27/23 @ 17:50 by Adriana Cornejo MD) Status post right knee replacement ?Z96.651 - Presence of right artificial knee joint (ICD-10) History of partial colectomy ?Z90.49 - Acquired absence of other specified parts of digestive tract (ICD- 10) H/O: hysterectomy ?Z90.710 - Acquired absence of both cervix and uterus (ICD-10) Social History (Reviewed 11/06/23 @ 09:03 by Cassidy Grey ~ [facility], [facility]) Narrative: -Pat celebrating 53 years of marriage What is your current living situation?: I presently have a place to live In the past 12 months, utilities in danger of being shut off: no In past 12 months, lack of transportation kept you from medical appts, meetings, work, or getting things needed for daily living: no In the past 12 mos, have been you worried that your food would run out before you had money to buy more?: never true In the past 12 mos, the food you bought just didn't last and you didn't have money to buy more?: never true Highest level of school completed/degree received: Bachelor's degree Smoking Status: Never smoker Do you use any of these nicotine containing products: None Second hand tobacco smoke exposure: No How often do you have a drink containing alcohol: monthly or less How many standard drinks containing alcohol do you have on a typical day: 1 or 2 How often do you have six or more drinks on one occasion: Never AUDIT-C Alcohol total score: 1 Non-prescribed substance use: denies use Caffeine: No How often does anyone, including family, friends and others, physically hurt you : never How often does anyone, including family, friends and others, insult or talk down to you: never How often does anyone, including family, friends and others, threaten you with harm: never How often does anyone, including family, friends and others, scream or curse at you: never service: No Meds Home Medications and Allergies Home Medications ?Medication ?Instructions ?Recorded ?Confirmed ?Type amoxicillin 250 mg capsule 250 mg PO DAILY PRN chronic 01/19/22 11/27/23 History bladder infections omeprazole 20 mg capsule,delayed 20 mg PO DAILY 01/19/22 11/27/23 History release rosuvastatin 20 mg tablet 20 mg PO HS 06/02/23 11/27/23 History calcium carbonate (Tums) 300 mg PO DAILY 11/06/23 11/27/23 History cholecalciferol (vitamin D3) 50 50 mcg PO DAILY 11/06/23 11/27/23 History mcg (2,000 unit) capsule (Vitamin D3) Allergies Allergy/AdvReac Type Severity Reaction Status Date / Time cefpodoxime Allergy Hives Verified 11/27/23 07:31 ciprofloxacin Allergy Verified 11/27/23 07:31 metronidazole Allergy Hives Verified 11/27/23 07:31 nitrofurantoin Allergy Verified 11/27/23 07:31 Sulfa (Sulfonamide Allergy Verified 11/27/23 07:31 Antibiotics) valdecoxib Allergy Verified 11/27/23 07:31 Exam Narrative: Exam Narrative: GEN: Alert and oriented, nontoxic HEENT: Normal external ears, EOMIs bilaterally, no scleral icterus CV: RRR, No concerning murmurs, HR 60s during my exam R: LCTA bilaterally without concerning wheezing Ext: wwp, no concerning edema Skin: No concerning skin lesions or rashes on exposed skin Neuro: Nonfocal Psych: Appropriate Const: Vital Signs, click to edit/add: Vital Signs - 24 hr 11/27/23 08:20 11/27/23 09:04 11/27/23 09:08 Temperature 97.9 F Pulse Rate 66 67 62 Respiratory Rate 16 16 14 Blood Pressure 134/73 143/77 H 118/77 Pulse Oximetry 96 91 91 Oxygen Delivery Me thod Room Air Nasal Cannula Nasal Cannula Oxygen Flow Rate 2 2 11/27/23 11:35 11/27/23 11:40 11/27/23 11:45 Temperature 97.2 F L Pulse Rate 61 63 62 Respiratory Rate 16 16 16 Blood Pressure 96/65 99/56 L 96/56 L Pulse Oximetry 94 94 94 Oxygen Delivery Me thod Room Air Room Air Room Air Oxygen Flow Rate 2 2 11/27/23 11:50 11/27/23 11:55 11/27/23 12:00 Temperature Pulse Rate 62 63 64 Respiratory Rate 16 16 16 Blood Pressure 90/56 L 98/58 L 101/59 L Pulse Oximetry 94 94 94 Oxygen Delivery Me thod Room Air Room Air Room Air Oxygen Flow Rate 2 2 2 11/27/23 12:05 11/27/23 12:10 11/27/23 12:15 Temperature 97.1 F L Pulse Rate 65 62 64 Respiratory Rate 16 16 16 Blood Pressure 108/60 106/67 111/64 Pulse Oximetry 94 94 94 Oxygen Delivery Me thod Room Air Room Air Room Air Oxygen Flow Rate 2 2 2 11/27/23 12:30 11/27/23 12:30 11/27/23 12:45 Temperature 96.0 F L 96.0 F L 96.0 F L Pulse Rate 64 64 57 L Respiratory Rate 18 18 18 Blood Pressure 106/64 106/64 107/61 Pulse Oximetry 95 95 95 Oxygen Delivery Me thod Room Air Room Air Room Air Oxygen Flow Rate 11/27/23 13:07 11/27/23 13:15 11/27/23 13:30 Temperature 96.0 F L 96.0 F L 96.0 F L Pulse Rate 60 64 80 Respiratory Rate 20 18 20 Blood Pressure 118/66 110/74 108/66 Pulse Oximetry 95 96 96 Oxygen Delivery Me thod Room Air Room Air Room Air Oxygen Flow Rate 11/27/23 14:00 11/27/23 14:30 Temperature 96.2 F L 96.2 F L Pulse Rate 66 64 Respiratory Rate 20 20 Blood Pressure 114/63 102/59 L Pulse Oximetry 95 98 Oxygen Delivery Me thod Room Air Room Air Oxygen Flow Rate Labs Labs: Cardiac Enzymes 11/27/23 Range/Units 12:57 Troponin I < 0.01 L (0.01-0.04) ng/mL Assessment and Plan Assessment and plan (1) Status post right knee replacement: Problem comment: - 11/27/23, Dr. Damian Status: Acute (2) Hypotension: Problem comment: - noted postoperatively without any other concerning symptoms, normal troponin, EKG, Hgb. No tachycardia, no hypotension - baseline BP typically low, will continue to monitor, holding parameters for narcotics Status: Acute Plan - pain management and prophylaxis per orthopedic surgery team - continue home medications for comorbidities - anticipate routine postoperative course
[2023-11-27 15:44] LABS: Lab Add On Test New Spec Needed
[2023-11-27 16:05] LABS: Hemoglobin* 11.8 gm/dL (12.0-16.0)
[2023-11-27] MEDS: HYDROmorphone 0.5 mg/0.5 ml inj IVP (16:11)
[2023-11-27 16:16] LABS: Troponin I* < 0.01 ng/mL (0.01-0.04)
[2023-11-27] MEDS: OMEPRAZOLE 20 MG CAPSULE DR PO (17:43)
[2023-11-27] MEDS: ASPIRIN 81 MG TABLET EC PO (20:18)
[2023-11-27] MEDS: SENNOSIDES 1 TAB TABLET 2 TAB PO (20:19)
[2023-11-27] MEDS: diphenhydrAMINE 50 MG/ML inj IVP (23:24)
[2023-11-28] MEDS: ONDANSETRON 2 MG/ML inj 4 MG IVP (00:13)
[2023-11-28] MEDS: OXYCODONE 5 MG TABLET PO ×3 (00:13→08:18)
[2023-11-28] MEDS: ACETAMINOPHEN 500 MG TABLET 1000 MG PO ×2 (02:48→08:17)
[2023-11-28 03:00] VITALS: BP 105/66; PULSE 65; RESP 16; TEMP 36.6; O2SAT 94
--- NOTE | 2023-11-28 06:31 | PC.NURSE ---
End of shift report [id number]: Alert and oriented x 4. Pain to right knee well managed with current regimen. Dressing to knee clean, dry and intact. Non pitting edema noted to right knee. CMS intact to BLE with pedal pulses present. SBA with transfers and ambulation with gait belt and walker. Blood pressures per patient's reported baseline, IV saline locked at 0230. Denies any dizziness or lightheadedness. Patient reporting increased upset stomach/indigestion and feeling of bile in throat, zofran administered and effective. Continent of bladder, void x 3 this shift.
[2023-11-28 06:50] LABS: Basophils Absolute Auto 0.01 K/uL (0.00-0.30); Basophils Percent Auto 0.1 % (0.0-3.0); Hemoglobin* 10.5 gm/dL (12.0-16.0); Immature Granulocytes Abs Auto 0.02 K/uL (0.00-0.30); Immature Granulocytes Pct Auto 0.2 %; Lymphocytes Percent Auto 12.7 % (20-44); Mean Corpuscular HGB Conc 34 gm/dL (32-36); Mean Corpuscular Hemoglobin 32 pg (26-34); Mean Corpuscular Volume 93 fL (80-100); Platelet Count* 243 K/uL (140-440); RDW Coefficient of Variation % 12.9 % (11.5-15.5); Red Blood Count 3.33 m/uL (4.00-5.20); White Blood Count* 10.34 K/uL (4.50-11.00)
[2023-11-28 06:52] LABS: Slide Review Reflex No
[2023-11-28 07:06] LABS: Potassium* 4.3 mmol/L (3.6-5.1); Sodium* 127 mmol/L (135-149)
[2023-11-28 07:09] LABS: Blood Urea Nitrogen* 15 mg/dL (7-30); Creatinine* 0.7 mg/dL (0.5-1.5); Est. Creatinine Clearance* 36.68; Estimated Glomerular Filt Rate 90 ml/min
[2023-11-28 07:45] VITALS: O2SAT 99
[2023-11-28] MEDS: SENNOSIDES 1 TAB TABLET 2 TAB PO (08:17)
[2023-11-28] MEDS: ASPIRIN 81 MG TABLET EC PO (08:17)
[2023-11-28 08:19] VITALS: BP 110/63; PULSE 78; RESP 16; TEMP 37.1; O2SAT 99
--- NOTE | 2023-11-28 11:58 | PM.ORPN ---
Subjective Subjective Time Seen by Provider: 07:40 Date Seen: 11/28/23 Principal diagnosis: Status post right knee replacement Interval history: Shefali is comfortable this morning. She ambulated well to and from the restroom. She is having breakfast without nausea and vomiting. She will discharge to home today. Ortho Exam Narrative Exam Narrative: Alert and oriented x3. Patient is in no acute distress. Converses without labored breathing. Hearing is grossly intact. Ambulates with a walker. Examination of the right lower extremity shows dressing is intact. There is no erythema or warmth or sign of infection. She is able to straight leg raise. CMS intact right lower extremity. Calves are soft and nontender. Const Vital Signs, click to edit/add: Vital Signs - 24 hr 11/27/23 12:00 11/27/23 12:05 11/27/23 12:10 Temperature 97.1 F L Pulse Rate 64 65 62 Pulse Rate [Left Radial] Pulse Rate [Pulse Oximeter] Respiratory Rate 16 16 16 Blood Pressure 101/59 L 108/60 106/67 Blood Pressure [Right Arm] Pulse Oximetry 94 94 94 Oxygen Delivery Method Room Air Room Air Room Air Oxygen Flow Rate 2 2 2 11/27/23 12:15 11/27/23 12:30 11/27/23 12:30 Temperature 96.0 F L 96.0 F L Pulse Rate 64 64 64 Pulse Rate [Left Radial] Pulse Rate [Pulse Oximeter] Respiratory Rate 16 18 18 Blood Pressure 111/64 106/64 106/64 Blood Pressure [Right Arm] Pulse Oximetry 94 95 95 Oxygen Delivery Method Room Air Room Air Room Air Oxygen Flow Rate 2 11/27/23 12:45 11/27/23 13:07 11/27/23 13:15 Temperature 96.0 F L 96.0 F L 96.0 F L Pulse Rate 57 L 60 64 Pulse Rate [Left Radial] Pulse Rate [Pulse Oximeter] Respiratory Rate 18 20 18 Blood Pressure 107/61 118/66 110/74 Blood Pressure [Right Arm] Pulse Oximetry 95 95 96 Oxygen Delivery Method Room Air Room Air Room Air Oxygen Flow Rate 11/27/23 13:30 11/27/23 14:00 11/27/23 14:30 Temperature 96.0 F L 96.2 F L 96.2 F L Pulse Rate 80 66 64 Pulse Rate [Left Radial] Pulse Rate [Pulse Oximeter] Respiratory Rate 20 20 20 Blood Pressure 108/66 114/63 102/59 L Blood Pressure [Right Arm] Pulse Oximetry 96 95 98 Oxygen Delivery Method Room Air Room Air Room Air Oxygen Flow Rate 11/27/23 15:00 11/27/23 15:00 11/27/23 15:02 Temperature Pulse Rate 57 L 50 L Pulse Rate [Left Radial] Pulse Rate [Pulse Oximeter] Respiratory Rate 20 Blood Pressure 75/46 L 72/43 L Blood Pressure [Right Arm] Pulse Oximetry 95 97 Oxygen Delivery Method Room Air Room Air Oxygen Flow Rate 11/27/23 15:08 11/27/23 15:49 11/27/23 15:50 Temperature Pulse Rate 56 L 65 67 Pulse Rate [Left Radial] Pulse Rate [Pulse Oximeter] Respiratory Rate Blood Pressure 75/41 L 105/60 Blood Pressure [Right Arm] Pulse Oximetry 100 94 Oxygen Delivery Method Oxygen Flow Rate 11/27/23 16:00 11/27/23 16:01 11/27/23 16:15 Temperature 97.6 F Pulse Rate 68 62 69 Pulse Rate [Left Radial] Pulse Rate [Pulse Oximeter] Respiratory Rate Blood Pressure 107/65 Blood Pressure [Right Arm] Pulse Oximetry 100 97 98 Oxygen Delivery Method Oxygen Flow Rate 11/27/23 17:00 11/27/23 17:02 11/27/23 17:03 Temperature 97.6 F Pulse Rate 77 69 72 Pulse Rate [Left Radial] Pulse Rate [Pulse Oximeter] Respiratory Rate 20 Blood Pressure 110/71 Blood Pressure [Right Arm] Pulse Oximetry 90 97 93 Oxygen Delivery Method Room Air Oxygen Flow Rate 11/27/23 18:00 11/27/23 18:02 11/27/23 19:00 Temperature 97.8 F Pulse Rate 76 76 Pulse Rate [Left Radial] Pulse Rate [Pulse Oximeter] 75 Respiratory Rate 20 18 Blood Pressure 98/53 L Blood Pressure [Right Arm] 93/58 L Pulse Oximetry 94 95 94 Oxygen Delivery Method Room Air Room Air Oxygen Flow Rate 11/27/23 23:00 11/27/23 23:00 11/27/23 23:00 Temperature 97.8 F Pulse Rate Pulse Rate [Left Radial] Pulse Rate [Pulse Oximeter] 75 75 Respiratory Rate 16 18 16 Blood Pressure Blood Pressure [Right Arm] 110/60 Pulse Oximetry 94 92 Oxygen Delivery Method Room Air Room Air Oxygen Flow Rate 11/28/23 03:00 11/28/23 07:45 11/28/23 08:19 Temperature 97.9 F 98.7 F Pulse Rate Pulse Rate [Left Radial] 78 Pulse Rate [Pulse Oximeter] 65 Respiratory Rate 16 16 Blood Pressure Blood Pressure [Right Arm] 105/66 110/63 Pulse Oximetry 94 99 99 Oxygen Delivery Method Room Air Room Air Room Air Oxygen Flow Rate Assessment and Plan Assessment and plan (1) Status post right knee replacement: Problem details: - 11/27/23, Dr. Damian Status: Acute Assessment and Plan: Plan for discharge is today to home if they meet discharge criteria. DVT prophylaxis includes aspirin 81 mg twice daily x1 month, Compression stockings as needed for swelling. Frequent ambulation, every hour throughout the day. Remove dressing in 1 week. Observe wound and phone Orthopedics with any questions or concerns Return to clinic in 1 week for a wound check Return to clinic in 6 weeks with surgeon Minimize narcotic use. Wean off and discontinue soon as possible. Activities as tolerated. No strenuous activity. Outpatient physical therapy as scheduled. Ice and elevate the operative extremity. No restriction on ice.
== END 2023-11-28 10:30 | disposition home or self-care (01) ==
LOC: OR 07:19 → MEDSURG 11:14
PROVIDERS: Family Medicine; Physician Assistant; PCP Family Medicine; Visit Provider Orthopaedic Surgery
PROC: (CPT 27447; principal; 2023-11-27 09:15)
DX: M17.11 Unilateral primary osteoarthritis, right knee (principal); G89.18 Other acute postprocedural pain; M25.511 Pain in right shoulder; I95.81 Postprocedural hypotension
CPT/HCPCS: 27447; 01402; 36415; 64447; 64454; 73560; 76942; 82565; 84132; 84295; 84484; 84520; 85018; 85025; 93005; 97110; 97116; 97162; 97165; 97530; 97535; 99100; A9270; C1776; J0690; J1100; J1170; J1200; J2250; J2371; J2405; J2704; J2795; J3010; J7120

== ENCOUNTER 2023-12-03 11:04 | Outpatient (CLI) | payer MEDICARE, BC, SELFPAY ==
--- OUTSIDE RECORDS SUMMARY | 2023-12-07 05:49 | XMS_ITS | Clinical Summary ---
Author Organization [employer] [facility] Address [place], [place] [address] Care Team Providers Care Broadcast Journalist Name Role Phone Nataly Rodríguez MD Primary Care Provide r Allergies Active Allergy Reactions Criticality Noted Date Comments Valdecoxib Hives 06/22/2006 Ciprofloxacin Hives 10/29/2009 Nitrofurantoin Hives 06/22/2006 Metronidazole Hives 11/08/2017 Scopolamine Hives 09/03/2014 Sulfa (Sulfonamide Antibiotics) Hives 05/26 Cefpodoxime Hives 11/08/2017 Medications Medication Sig Dispensed Refills Start Date End Date Status cholecalciferol (Vitamin D) 1,000 unit capsuleIndications:O steopenia, unspecified location Take 1 Capsule (1,000 units) by mouth once daily. 0 06/28/2022 Active omeprazole (PRILOSEC) 20 mg Delayed-Release capsuleIndications:G astroesophageal reflux disease with esophagitis, unspecified whether hemorrhage Take 1 Capsule (20 mg) by mouth once daily before a meal. 90 Capsule 3 01/23/2023 Active amoxicillin (AMOXIL) 250 mg capsuleIndications:H istory of UTI Take one after intercourse. 60 Capsule 1 01/23/2023 Active rosuvastatin (Crestor) 20 mg tabletIndications:At herosclerosis Take 1 Tablet (20 mg) by mouth at bedtime. 90 Tablet 3 04/24/2023 Active polyethylene glycol 3350 (MIRALAX ORAL) Take by mouth. A ctive sennosides (SENNA) 8.6 mg tablet Take 8.6 mg by mouth two times daily. 11/27/2023 Active triamcinolone (ARISTOCORT; KENALOG) 0.1 % creamIndications:David matitis Apply topically to affected area(s) 3 times daily if needed (rash). 80 g 12/06/2023 Active aspirin (ECOTRIN) 81 mg enteric coated tabletIndications:S/ P total right hip arthroplasty Take 1 Tablet (81 mg) by mouth once daily with a meal. 60 Tablet 12/06/2023 Active durable medical equipment (DME)Indications:Angle justine osteoarthritis of right knee,Acquired genu valgum of right knee,Pain of meniscus of right knee Mary Farah Brace, Large [id number] Length of Use: 99 months 0 09/18/2022 4 Discontinue d(*Med complete/Re gimen complete/Le michael of care change) ondansetron (ZOFRAN ODT) 8 mg disintegrating tabletIndications:Na usea Place 1 Tablet (8 mg) on the tongue every 8 hours if needed for Nausea/Vomitin g. 30 Tablet 12/03/2023 4 Discontinue d(*Med complete/Re gimen complete/Le michael of care change) Active Problems Problem Noted Date Diagnosed Date [...] Encounters Date Type Department Care Team Description 12/06/2023 4:00 PM CDT Ancillary Procedure [facility] [address] [place] [address] Arrived 12/06/2023 3:15 PM CDT Office Visit [facility] [address] [place] [address] Nataly Rodríguez MD ER Follow up (Post surgical constipation) 12/05/2023 Travel 12/03/2023 8:15 AM CDT Office Visit [facility] [address] [place] [address] Oscar Zavala MD Surgical Followup (Had surgery on 11/27/2023 RIGHT Knee Replacement/Having trouble with Constipation ) 12/03/2023 Travel 11/27/2023 Orders Only [facility] Scanner 1 scan: (1-Ord) [facility], KNEE RT 2V, 11/27/2023 11/20/2023 Orders Only [facility] [address] [place] [address] Kassi Anna PA 1 scan: (1-Ord) [facility]-EKG-11/19/23 11/19/2023 7:30 AM CDT Preop Visit [facility] [address] [place] [address] Kassi Anna PA Preoperative Exam (Right knee replacement-Dr. Damian[facility] 11/27/23) 11/18/2023 Travel 10/03/2023 9:40 AM CDT Office Visit [facility] [address] [place] [address] Gonzalo José MD Musculoskeletal Problem (Follow up Right Knee ) 10/03/2023 Travel from Last 3 Months Immunizations Name Administration Dates Next Due AMB Influenza, IIV3 (Age >=3 years)(Flu Clinic Only) 01/02/2013 AMB Influenza, IIV4 PF (=>6 mos Flulaval,Fluzone Fluarix)(Flu Clinic Only) 12/30/2016,02/09/2016 Amb Influenza, Inact (High-d ose) (Flu Clinic Only) 01/13/2015 COVID-19 VACCINE SPIKEVAX (M ODERNA 50MCG/0.5ML) 12YO+ PFS 01/23/2023 COVID-19 vaccine (Moderna 10 0mcg/0.5mL) PF, [...] Sign Reading Time Taken Comments Blood Pressure 99/67 12/06/2023 3:23 PM CDT Pulse 81 12/06/2023 3:23 PM CDT Temperature 36.4 ??C (97.5 ??F) 10/03/2023 9:42 AM CD T Respiratory Rate 16 05/13/2018 10:08 AM CLAMP CARRIER OPERATOR Oxygen Saturation 99% 12/06/2023 3:23 PM CDT Inhaled Oxygen Concentration - - Weight 71.7 kg (158 lb) 12/06/2023 3:23 PM CDT Height 156 cm (5' 1.42) 11/19/2023 7:38 AM CDT Body Mass Index 29.45 11/19/2023 7:38 AM CDT Plan of Treatment Upcoming Encounters Date Type Department Care Team (Late st Contact Info) Description 01/25/2024 8:25 AM CDT Office Visit [facility] [address] [facility] [place] [address] Nataly Rodríguez MD [address] [facility] [place] [address] Health Maintenance Due Date Last Done Comments RSV vaccine for adults or (1 - 1-dose 60+ series) 2008 COVID-19 vaccine series (2022-24 season) 2023 01/23/2023, 07/31/2022, 12/13/2021, Additional history [...] AM CDT S/P total knee arthroplasty, right BASIC METABOLIC PANEL Routine 12/03/2023 9:13 AM CDT Hyponatremia SCAN-RADIOLOGY REPORT 11/27/2023 12:00 AM CDT EKG 12 LEAD Routine 11/20/2023 7:38 AM CDT Pre-op exam SD READING EKG - NO CHARGE, COMP ONLY [...] WITH AUTO DIFFERENTIAL (12/03/2023 9:13 AM CDT) Pathologist [facility] WHITE BLOOD COUNT 8.9 4.5 - 11.0 thou/cu mm 12/03/2023 9:18 AM CDT [facility] RED BLOOD COUNT 4.08 4.00 - 5.20 mil/cu mm 12/03/2023 9:18 AM CDT [facility] HEMOGLOBIN 12.9 12.0 - 16.0 g/dL 12/03/2023 9:18 AM CDT [facility] HEMATOCRIT 37.7 33.0 - 51.0 % 12/03/2023 9:18 AM CDT [facility] MCV 92 80 - 100 fL 12/03/2023 9:18 AM CDT [facility] MCH 31.6 26.0 - 34.0 pg 12/03/2023 9:18 AM CDT [facility] MCHC 34.2 32.0 - 36.0 g/dL 12/03/2023 9:18 AM CDT [facility] RDW 13.4 11.5 - 15.5 % 12/03/2023 9:18 AM CDT [facility] PLATELET COUNT 339 140 - 440 thou/cu mm 12/03/2023 9:18 AM CDT [facility] MPV 8.4 6.5 - 11.0 fL 12/03/2023 9:18 AM CDT [facility] % NEUT 63.3 % 12/03/2023 9:18 AM CDT [facility] % LYMPH 19.9 % 12/03/2023 9:18 AM CDT [facility] % MONO 12.9 % 12/03/2023 9:18 AM CDT [facility] % EOS 3.7 % 12/03/2023 9:18 AM CDT [facility] % BASO 0.2 % 12/03/2023 9:18 AM CDT [facility] ABSOLUTE NEUTROPHILS 5.6 1.7 - 7.0 thou/cu mm 12/03/2023 9:18 AM CDT [facility] ABSOLUTE LYMPHOCYTES 1.8 0.9 - 2.9 thou/cu mm 12/03/2023 9:18 AM CDT [facility] ABSOLUTE MONOCYTES 1.1(H) <0.9 thou/cu mm 12/03/2023 9:18 AM CDT [facility] ABSOLUTE EOSINOPHILS 0.3 <0.5 thou/cu mm 12/03/2023 9:18 AM CDT [facility] ABSOLUTE BASOPHILS 0.0 <0.3 thou/cu mm 12/03/2023 9:18 AM CDT [facility] Blood BLOOD SPECIMEN / Unknown Venipuncture / Unknown 12/03/2023 9:13 AM CDT 12/03/2023 9:13 AM CDT Oscar Zavala MD HEMATOLOGY [facility] [address] [place] [address], * (ABNORMAL) BASIC METABOLIC PANEL (12/03/2023 9:13 AM CDT) Only the most recent of2 resultswithin the time period is included. SODIUM 132(L) 136 - 145 mmol/L 12/03/2023 6:07 PM CDT [facility] POTASSIUM 4.5 3.5 - 5.1 mmol/L 12/03/2023 6:07 PM T [facility] CHLORIDE 96(L) 98 - 107 mmol/L 12/03/2023 6:07 PM T [facility] CO2,TOTAL 25 22 - 29 mmol/L 12/03/2023 6:07 PM T [facility] ANION GAP 11 5 - 18 12/03/2023 6:07 PM T [facility] GLUCOSE 109(H) 70 - 99 mg/dL 12/03/2023 6:07 PM T [facility] CALCIUM 9.5 8.8 - 10.2 mg/dL 12/03/2023 6:07 PM T [facility] BUN 9 8 - 23 mg/dL 12/03/2023 6:07 PM [facility] CREATININE 0.74 0.50 - 0.90 mg/dL 12/03/2023 6:07 PM T [facility] BUN/CREAT RATIO 12 10 - 20 6:07 PM T [facility] eGFR 84(L) >90 mL/min/1.7 3m2 12/03/2023 6:07 PM T [facility] Comment:As of 2021, eG [...] 12/03/2023 9:13 AM CDT Oscar Zavala MD CHEMISTRY [facility] [address] [place] [id number], * SCAN-RADIOLOGY REPORT (11/27/2023 12:00 AM CDT) Anatomical Region Laterality Modality Other Scanner OTHER * EKG 12 LEAD (11/20/2023 7:38 AM CDT) Kassi LACKEY EKG ORD * SD READING EKG - NO CHARGE, COMP ONLY (11/20/2023 7:37 AM CDT) Kassi LACKEY PB - PROVIDER READ INGS * HEMOGLOBIN (11/19/2023 8:20 AM CDT) HEMOGLOBIN 13.8 12.0 - 16.0 g/dL 11/19/2023 8:26 AM CDT [facility] MCV 92 80 - 100 fL 11/19/2023 8:26 AM CDT [facility] Blood BLOOD SPECIMEN / Unknown Venipuncture / Unknown 11/19/2023 8:20 AM CDT 11/19/2023 8:21 AM CDT Kassi LACKEY HEMATOLOGY [facility] [address] [place] [address], [place] [phone] * LIPID PANEL (07/23/2023 8:40 AM CDT) CHOLESTEROL,TOTAL 137 100 - 199 mg/dL 07/24/2023 5:35 AM CDT [facility] Comment: Cholesterol, Total Reference Ranges Desirable <200 mg/dL Borderline 200-239 mg/dL High >=240 mg/dL TRIGLYCERIDES 88 <150 mg/dL 07/24/2023 5:35 AM CDT [facility] HDL CHOLESTEROL 59 >40 mg/dL 5:35 AM CDT [facility] NON-HDL CHOLESTEROL 78 <145 mg/dl 07/24/2023 5:35 AM CDT [facility] CHOL/HDL RATIO 2.32 <4.50 07/24/2023 5:35 AM CDT [facility] LDL CHOLESTEROL 60 <=130 mg/dL 07/24/2023 5:35 AM CDT [facility] VLDL CHOLESTEROL 18 <=30 mg/dL 07/24/2023 5:35 AM CDT [facility] PROVIDER ORDERED STATUS RANDOM 07/24/2023 5:35 AM CDT [facility] Blood BLOOD SPECIMEN / Unknown Venipuncture / Unknown 07/23/2023 8:40 AM CDT 07/23/2023 8:40 AM CDT Alisha Trujillo MD [facility] [address] [place] [address], * (ABNORMAL) XR DXA BONE DENSITY 2 [...] to assess therapeutic efficacy. Odette Younger PA-C [facility] 06/26/2022 Narrative 06/26/2022 1:34 PM CDT For Patients: Results are automatically released to your [facility] ([employer]) account once available, in compliance with federal regulations. This means that you may see your results before your provider has had a chance to review them. Please allow 2-3 business days for your provider to comment on the results. XR DXA Bone Mineral Density (BMD) EXAM LOCATION: [facility] [address] [facility] [address] [address] PATIENT NAME: Shefali Sanders DATE OF : 1950 EXAM DATE: 06/26/2022 REQUESTING PROVIDER: Nataly Rodríguez MD GENDER AT : female HEIGHT: 5' 1.5 (01/12/2022) WEIGHT: ??154 lb 9.6 oz (03/13/2022) MENOPAUSAL STATUS: Postmenopausal RACE/ETHNICITY: White RISK FACTORS: Depo Provera, Family History of Hip Fracture (parental) and White Race CURRENT MEDICATION FOR BONE LOSS: NONE INDICATION: Follow-up of existing osteopenia and Post-Menopause COMPARISON DATE(S): 2017 DXA scans are compared to prior studies for a patient only when the two (or more) studies were performed on the same scanner. It is not possible to compare data generated on one scanner to data from another because there are not standards in DXA equipment. This applies even if the two scanners are made by the same concrete block mason. PROCEDURE: Dual-energy x-ray absorptiometry performed with routine [...] 15.3%. 10-year probability of hip fracture: 5.8%. Natayl Rodríguez MD DEXA * ANTI HCV (07/12/2020 8:36 AM CDT) Pathologist [facility] HEPATITIS C ANTIBODY Non-React malvin Non-React malvin 07/12/2020 4:28 PM CDT [facility] Comment:Antibodies to HCV no t detected; does not exclude the possibility of exposure to HCV. Blood BLOOD SPECIMEN / Unknown Venipuncture / Unknown 07/12/2020 8:36 AM CDT 07/12/2020 8:36 AM CDT Nataly Rodríguez MD SEND OUTS [facility] [address] [place] [address], [place] * SCAN-COLONOSCOPY (10/19/2017 1:45 PM CDT) Narrative Procedure Note Lorena Canela MD - 10/19/2017 12:51 PM CDT [facility] [address] [place] [address], [address], [place] [address] Patient Name: Shefali Sanders Gender: Female Exam Date: 10/19/2017 Visit Number: [id number] Age: 67 Years 5 Months Date of : 1950 Attending MD: Lorena Canela MD Medical Record#: [id number] ----- Procedure: Colonoscopy Indications: Recent history of diverticulitis Referring MD: Nataly Rodríguez MD Primary MD: Nataly Romo MD, Resident/Fellow performed or assisted with theprocedure under supervision from Lorena Canela MD Medications: Admitting Medications: 0.9% Normal Saline at [facility] Intra Procedure Medications: Patient received monitored anesthesia [...] 58 Race: Ethnicity: Not or Preferred Language: Nauruan cc: Nataly Rodríguez MD cc: Nataly Rodríguez MD [facility] [phone] Lorena Canela MD OTHER from Last 3 Months or Most Recently Relevant to Health Maintenance Advance Directives Documents on File Type Date Recorded Patient Wax Blender Expl anation Healthcare Directive 02/06/2018 8:13 AM * Full Code (Latest Code Status on File) Date Activated Date Inactivated Comments 01/31/2018 10:18 AM 02/02/2018 3:15 PM Care Teams Broadcast Journalist Relationship Specialty Start Date End Date Nataly Rodríguez MD [address] [place] [address] [address] PCP - General 07/14/05
== END 2023-12-03 11:05 | disposition home or self-care (01) ==
LOC: AMB 12-07 05:46
PROVIDERS: PCP Family Medicine; Visit Provider Emergency Medicine
DX: R10.9 Unspecified abdominal pain (principal)
CPT/HCPCS: A0425; A0427

== ENCOUNTER 2023-12-03 11:34 | Emergency (ER) | payer MEDICARE, BC, SELFPAY ==
[2023-12-03 11:37] VITALS: BP 147/83; PULSE 73; RESP 16; TEMP 36.6; O2SAT 99
--- NOTE | 2023-12-03 12:06 | ED.GENADULT ---
HPI - General Adult General Chief complaint: Constipation Stated complaint: weakness Time Seen by Provider: 12/03/23 11:34 Source: patient and family Mode of arrival: EMS Limitations: no limitations History of Present Illness HPI narrative: Patient is a 73-year-old woman who recently underwent right TKA. She was discharged home on oxycodone and senna, and she was worried that her previously used MiraLax 3 times a week would be too much with the senna so she discontinued it. She has now developed constipation, has been unable to have a bowel movement for the past 5 days and today developed rectal pain. Arrives via EMS with her . Received fentanyl in route. Related Data Home Medications ?Medication ?Instructions ?Recorded ?Confirmed amoxicillin 250 mg capsule 250 mg PO DAILY PRN chronic 01/19/22 11/27/23 bladder infections omeprazole 20 mg capsule,delayed 20 mg PO DAILY 01/19/22 11/27/23 release rosuvastatin 20 mg tablet 20 mg PO HS 06/02/23 11/27/23 calcium carbonate (Tums) 300 mg PO DAILY 11/06/23 11/27/23 cholecalciferol (vitamin D3) 50 50 mcg PO DAILY 11/06/23 11/27/23 mcg (2,000 unit) capsule (Vitamin D3) Previous Rx's ?Medication ?Instructions ?Recorded acetaminophen 500 mg capsule 500 - 1,000 mg (1 - 2 x 500 mg) PO 11/27/23 Q6H PRN pain #100 caps aspirin 81 mg chewable tablet 81 mg PO BID for DVT prophylaxis 11/27/23 (Aspirin Childrens) 30 days #60 tabs oxycodone 5 mg tablet 2.5 - 5 mg (0.5 - 1 x 5 mg) PO 11/27/23 Q4-6H PRN Pain #42 tabs sennosides 8.6 mg tablet (Senna 17.2 mg (2 x 8.6 mg) PO BID PRN 11/27/23 Lax) constipation #100 tabs Allergies Allergy/AdvReac Type Severity Reaction Status Date / Time cefpodoxime Allergy Hives Verified 11/27/23 07:31 ciprofloxacin Allergy Verified 11/27/23 07:31 metronidazole Allergy Hives Verified 11/27/23 07:31 nitrofurantoin Allergy Verified 11/27/23 07:31 Sulfa (Sulfonamide Allergy Verified 11/27/23 07:31 Antibiotics) valdecoxib Allergy Verified 11/27/23 07:31 Review of Systems Status of ROS: Reports: 6 or more systems reviewed and unremarkable except as noted in History and below [facility] Medical History 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) Temporomandibular joint disorders, unspecified (06/22/06) ?M26.609 - Unspecified temporomandibular joint disorder, unspecified side (ICD-10) Sigmoid diverticulitis (02/01/18) ?K57.32 - Diverticulitis of large intestine without perforation or abscess without bleeding (ICD-10) Personal history of urinary (tract) infection (06/22/06) ?Z87.440 - Personal history of urinary (tract) infections (ICD-10) Osteoporosis (10/01/12) ?M81.0 - Age-related osteoporosis without current pathological fracture (ICD-10) Gastroesophageal reflux disease without esophagitis (09/05/16) ?K21.9 - Gastro-esophageal reflux disease without esophagitis (ICD-10) Perforated diverticulum ?K57.80 - Diverticulitis of intestine, part unspecified, with perforation and abscess without bleeding (ICD-10) Acute diverticulitis of intestine ?K57.92 - Diverticulitis of intestine, part unspecified, without perforation or abscess without bleeding (ICD-10) Ganglion cyst ?M67.40 - Ganglion, unspecified site (ICD-10) Internal impingement of left shoulder ?M75.42 - Impingement syndrome of left shoulder (ICD-10) Surgical History Status post right knee replacement (11/27/23) ?Z96.651 - Presence of right artificial knee joint (ICD-10) History of partial colectomy ?Z90.49 - Acquired absence of other specified parts of digestive tract (ICD-10) H/O: hysterectomy ?Z90.710 - Acquired absence of both cervix and uterus (ICD-10) Social History Narrative: -Pat celebrating 53 years of marriage What is your current living situation?: I presently have a place to live In the past 12 months, utilities in danger of being shut off: no In past 12 months, lack of transportation kept you from medical appts, meetings, work, or getting things needed for daily living: no In the past 12 mos, have been you worried that your food would run out before you had money to buy more?: never true In the past 12 mos, the food you bought just didn't last and you didn't have money to buy more?: never true Highest level of school completed/degree received: Bachelor's degree Smoking Status: Never smoker Do you use any of these nicotine containing products: None Second hand tobacco smoke exposure: No How often do you have a drink containing alcohol: monthly or less How many standard drinks containing alcohol do you have on a typical day: 1 or 2 How often do you have six or more drinks on one occasion: Never AUDIT-C Alcohol total score: 1 Non-prescribed substance use: denies use Caffeine: No How often does anyone, including family, friends and others, physically hurt you: never How often does anyone, including family, friends and others, insult or talk down to you: never How often does anyone, including family, friends and others, threaten you with harm: never How often does anyone, including family, friends and others, scream or curse at you: never service: No Exam Narrative: Exam Narrative: Vital signs reviewed In general, alert, nontoxic woman, she was sobbing when I 1st entered the room but calmed down as we talked. Abdomen: Soft nontender. Rectal: Hard retained stool in the rectum. No hemorrhoids or fissure visualized externally. No visible bleeding. Right knee has a dressing in place, she is moving it well, no erythema surrounding the dressing. Const: Vital Signs, click to edit/add: Vital Signs - 24 hr 12/03/23 11:37 Temperature 97.8 F Pulse Rate [Pulse Oximeter] 73 Respiratory Rate 16 Blood Pressure [Ri ght Upper Arm] 147/83 H Pulse Oximetry 99 Oxygen Delivery Me thod Room Air Documenting provider has reviewed patient's vital signs: yes Course Course ED Course: Exam is consistent with fecal impaction, abdomen otherwise benign. We were going to do an enema here, however shortly after my digital rectal exam patient felt the urge to defecate and was able to have a large bowel movement. She feels improved, symptoms resolved. I would recommend that she restart the MiraLax, I think daily is reasonable while she is taking oxycodone. Can titrate back to 3 days a week if stools are 2 soft. Follow-up as needed. Return for worsening. Vital Signs Vital signs: Initial Vital Signs Temperature 97.8 F 12/03/23 11:37 Temperature Source Temporal Artery Scan 12/03/23 11:37 Pulse Rate 73 12/03/23 11:37 Respiratory Rate 16 12/03/23 11:37 Blood Pressure 147/83 H 12/03/23 11:37 Blood Pressure Mean 104 12/03/23 11:37 Pulse Oximetry 99 12/03/23 11:37 Oxygen Delivery Method Room Air 12/03/23 11:37 Vital Signs Temperature 97.8 F 12/03/23 11:37 Pulse Rate 73 12/03/23 11:37 Respiratory Rate 16 12/03/23 11:37 Blood Pressure 147/83 H 12/03/23 11:37 Pulse Oximetry 99 12/03/23 11:37 Oxygen Delivery Method Room Air 12/03/23 11:37 Temperature 97.8 F 12/03/23 11:37 Pulse Rate 73 12/03/23 11:37 Respiratory Rate 16 12/03/23 11:37 Blood Pressure 147/83 H 12/03/23 11:37 Pulse Oximetry 99 12/03/23 11:37 Oxygen Delivery Method Room Air 12/03/23 11:37 Discharge Plan Discharge Clinical Impression: Fecal impaction in rectum Patient Disposition: Home, Self-Care Condition: Improved Instructions: Fecal Impaction (ED) Additional Instructions: I would recommend restarting the MiraLax, consider using it daily while you are taking narcotic pain medications as these are significantly constipating. Senna is a different type of laxative, and does not help keep the stools soft, it just helps to keep the got from slowing down. It is very reasonable to use both. Return or follow up as needed. Prescriptions: No Action omeprazole 20 mg capsule,delayed release(DR/EC) 20 mg PO DAILY amoxicillin 250 mg capsule 250 mg PO DAILY PRN (Reason: chronic bladder infections) Rx Instructions: after intercourse Tums 300 mg (750 mg) tablet,chewable 300 mg PO DAILY cholecalciferol (vitamin D3) [Vitamin D3] 50 mcg (2,000 unit) capsule 50 mcg PO DAILY rosuvastatin 20 mg tablet 20 mg PO HS sennosides [Senna Lax] 8.6 mg Tablet 17.2 mg PO BID PRN (Reason: constipation) Qty: 100 0RF aspirin [Aspirin Childrens] 81 mg tablet,chewable 81 mg PO BID 30 Days Qty: 60 0RF acetaminophen 500 mg capsule 500 - 1,000 mg PO Q6H MDD 4000mg per day PRN (Reason: pain) Qty: 100 0RF oxycodone 5 mg Tablet 2.5 - 5 mg PO Q4-6H MDD 6 tabs per day PRN (Reason: Pain) Qty: 42 0RF Rx Instructions: Minimize. Discontinue as soon as possible Follow Up/Referrals: Nataly Rodríguez MD [Primary Care Provider] - Stand Alone Forms: [facility] Info Instructions
--- OUTSIDE RECORDS SUMMARY | 2023-12-03 12:11 | XMS_ITS | Clinical Summary ---
Author Organization [email or web address] [facility] Address [place], [place] [address] Care Team Providers Care Paste Up Copy Camera Operator Name Role Phone Nataly Rodríguez MD [...] of meniscus of right knee Eleonora Alva [phone] Length of Use: 99 months 0 09/18/2022 [...] (MIRALAX ORAL) Take by mouth. A ctive sennosides (SENNA) 8.6 mg tablet Take 8.6 mg by mouth two times daily. 11/27/2023 Active ondansetron (ZOFRAN ODT) 8 mg disintegrating tabletIndications:Naus ea Place 1 Tablet (8 mg) on the tongue every 8 hours if needed for Nausea/Vomiting . 30 Tablet 12/03/2023 Active Active Problems Problem Noted Date Diagnosed Date Sigmoid diverticulitis 02/01/2018 Gastroesophageal reflux disease without esophagi tis 09/05/2016 Overview (11/19/2020): EGD 08/2016 normal EGD 10/2020 reflux esophagitis, no Nazario's esophagus Tongue distortion 09/03/2014 Osteoporosis 10/01/2012 Diverticulosis of colon (without mention of hemo rrhage) 09/15/2010 Overview (09/15/2010): Colonoscopy 08/2010 diverticulosis repeat in 10 years Personal history of urinary (tract) infection Temporomandibular joint disorders, unspecified 0 06/22/2006 Resolved Problems Problem Noted Date Diagnosed Date Resolved Date Osteopenia 09/29/2010 10/01/2012 Encounters Date Type Department Care Team Description 12/03/2023 8:15 AM CDT Office Visit [facility] [address] [place] [address] Oscar Zavala MD Surgical Followup (Had surgery on 11/27/2023 RIGHT Knee Replacement/Having trouble with Constipation ) 12/03/2023 Travel 11/27/2023 Orders Only [facility] Scanner 1 scan: (1-Ord) [facility], KNEE RT 2V, 11/27/2023 11/20/2023 Orders Only [facility] [address] [place] [address] Kassi Anna PA 1 scan: (1-Ord) NFLD-EKG-11/19/23 11/19/2023 7:30 AM CDT Preop Visit [facility] [address] [place] [address] Kassi Anna PA Preoperative Exam (Right knee replacement-Dr. [facility] 11/27/23) 11/18/2023 Travel 10/03/2023 9:40 AM CDT Office Visit [facility] [address] [place] [address] Gonzalo José MD Musculoskeletal Problem (Follow up Right Knee ) 10/03/2023 Travel from Last 3 Months Immunizations Name Administration Dates Next Due AMB Influenza, IIV3 (Age >=3 years)(Flu Clinic Only) 01/02/2013 AMB Influenza, IIV4 PF (=>6 mos Flulaval,Fluzone Fluarix)(Flu Clinic Only) 12/30/2016,02/09/2016 Amb Influenza, Inact (High-d ose) (Flu Clinic Only) 01/13/2015 COVID-19 Vaccine Spikevax (M oderna 50mcg/0.5mL) 12YO+ [id number] Formula PF 01/23/2023 COVID-19 vaccine (Moderna 10 [...] Sign Reading Time Taken Comments Blood Pressure 113/76 12/03/2023 8:16 AM CDT Pulse 81 12/03/2023 8:16 AM CDT Temperature 36.4 ??C (97.5 ??F) 10/03/2023 9:42 AM CD T Respiratory Rate 16 05/13/2018 10:08 AM SHELTER CASE MANAGER Oxygen Saturation 100% 12/03/2023 8:16 AM CDT Inhaled Oxygen Concentration - - Weight 71.2 kg (157 lb) 11/19/2023 7:38 AM CDT Height 156 cm (5' 1.42) 11/19/2023 7:38 AM CDT Body Mass Index 29.26 11/19/2023 7:38 AM CDT Plan of Treatment Upcoming Encounters Date Type Department Care Team (Late st Contact Info) Description 01/25/2024 8:25 AM CDT Office Visit [facility] [address] [place] [address] Nataly Rodríguez MD [address] [place] [address] Health Maintenance Due Date Last Done Comments RSV vaccine for adults or (1 - 1-dose 60+ series) 2008 COVID-19 vaccine series ( season) 2023 01/23/2023, 07/31/2022, 12/13/2021, Additional history [...] Procedure Name Priority Date/Time Associated Diagnosis Comments CBC WITH AUTO DIFFERENTIAL Routine 12/03/2023 9:13 AM CDT S/P total knee arthroplasty, right CBC WITH AUTO DIFFERENTIAL Routine 12/03/2023 9:13 AM CDT S/P total knee arthroplasty, right SCAN-RADIOLOGY REPORT 11/27/2023 12:00 AM CDT EKG 12 LEAD Routine 11/20/2023 7:38 AM CDT Pre-op exam [facility] E[facility] - NO CHARGE, COMP ONLY [...] Recently Relevant to Health Maintenance Results * (ABNORMAL) CBC WITH AUTO DIFFERENTIAL (12/03/2023 9:13 AM CDT) WHITE BLOOD COUNT 8.9 4.5 - 11.0 thou/cu mm 12/03/2023 9:18 AM CDT [facility] RED BLOOD COUNT 4.08 4.00 - 5.20 mil/cu mm 12/03/2023 9:18 AM CDT [facility] HEMOGLOBIN 12.9 12.0 - 16.0 g/dL 12/03/2023 9:18 AM CDT [facility] HEMATOCRIT 37.7 33.0 - 51.0 % 12/03/2023 9:18 AM CDT [facility] MCV 92 80 - 100 fL 12/03/2023 9:18 AM CDT [facility] MCH 31.6 26.0 - 34.0 pg 12/03/2023 9:18 AM CDT [facility] MCHC 34.2 32.0 - 36.0 g/dL 12/03/2023 9:18 AM CDT [facility] RDW 13.4 11.5 - 15.5 % 12/03/2023 9:18 AM CDT [facility] PLATELET COUNT 339 140 - 440 thou/cu mm 12/03/2023 9:18 AM CDT [facility] MPV 8.4 6.5 - 11.0 fL 12/03/2023 9:18 AM CDT [facility] % NEUT 63.3 % 12/03/2023 9:18 AM CDT [facility] % LYMPH 19.9 % 12/03/2023 9:18 AM CDT [facility] % MONO 12.9 % 12/03/2023 9:18 AM CDT [facility] % EOS 3.7 % 12/03/2023 9:18 AM CDT [facility] % BASO 0.2 % 12/03/2023 9:18 AM CDT [facility] ABSOLUTE NEUTROPHILS 5.6 1.7 - 7.0 thou/cu mm 12/03/2023 9:18 AM CDT [facility] ABSOLUTE LYMPHOCYTES 1.8 0.9 - 2.9 thou/cu mm 12/03/2023 9:18 AM CDT [facility] ABSOLUTE MONOCYTES 1.1(H) <0.9 thou/cu mm 12/03/2023 9:18 AM CDT [facility] ABSOLUTE EOSINOPHILS 0.3 <0.5 thou/cu mm 12/03/2023 9:18 AM CDT [facility] ABSOLUTE BASOPHILS 0.0 <0.3 thou/cu mm 12/03/2023 9:18 AM CDT [facility] Blood BLOOD SPECIMEN / Unknown Venipuncture / Unknown 12/03/2023 9:13 AM CDT 12/03/2023 9:13 AM CDT Oscar Zavala MD HEMATOLOGY Performing Organization Address [facility]/State/ZIP Co de Phone Number [facility] [address] [place] [address], * SCAN-RADIOLOGY REPORT (11/27/2023 12:00 AM CDT) Anatomical Region Laterality Modality Other Scanner OTHER * EKG 12 LEAD (11/20/2023 7:38 AM CDT) Kassi LACKEY EKG ORD * [facility] EKG - NO CHARGE, COMP ONLY (11/20/2023 7:37 AM CDT) Kassi LACKEY PB - PROVIDER READ INGS * HEMOGLOBIN (11/19/2023 8:20 AM CDT) HEMOGLOBIN 13.8 12.0 - 16.0 g/dL 11/19/2023 8:26 AM CDT [facility] MCV 92 80 - 100 fL 11/19/2023 8:26 AM CDT [facility] Blood BLOOD SPECIMEN / Unknown Venipuncture / Unknown 11/19/2023 8:20 AM CDT 11/19/2023 8:21 AM CDT Kassi LACKEY HEMATOLOGY [facility] [address] [place] [address], * (ABNORMAL) BASIC METABOLIC PANEL (11/19/2023 8:20 AM CDT) SODIUM 131(L) 136 - 145 mmol/L 11/19/2023 2:12 PM CDT [facility] POTASSIUM 4.7 3.5 - 5.1 mmol/L 11/19/2023 2:12 PM CDT [facility] CHLORIDE 97(L) 98 - 107 mmol/L 11/19/2023 2:12 PM CDT [facility] CO2,TOTAL 25 22 - 29 mmol/L 11/19/2023 2:12 PM T [facility] ANION GAP 9 5 - 18 11/19/2023 2:12 PM T [facility] GLUCOSE 104(H) 70 - 99 mg/dL 11/19/2023 2:12 PM CDT [facility] CALCIUM 9.6 8.8 - 10.2 mg/dL 11/19/2023 2:12 PM T [facility] BUN 12 8 - 23 mg/dL 11/19/2023 2:12 PM T [facility] CREATININE 0.83 0.50 - 0.90 mg/dL 11/19/2023 2:12 PM T [facility] BUN/CREAT RATIO 14 10 - 20 2:12 PM T [facility] eGFR 74(L) >90 mL/min/1.7 3m2 11/19/2023 2:12 PM T [facility] Comment:As of 2021, eG FR is calculated by the CKD-EPI creatinine equation without race adjustment. ??eGFR can be influenced by muscle mass, exercise, and diet. ??The reported eGFR is an estimation only and is only applicable if the renal function is stable. Blood BLOOD SPECIMEN / Unknown Venipuncture / Unknown 11/19/2023 8:20 AM CDT 11/19/2023 8:21 AM CDT Kassi LACKEY CHEMISTRY [facility] [address] [place] [address], * LIPID PANEL (07/23/2023 8:40 AM CDT) CHOLESTEROL,TOTAL 137 100 - 199 mg/dL 07/24/2023 5:35 AM CDT [facility] Comment: Cholesterol, Total Reference Ranges Desirable <200 mg/dL Borderline 200-239 mg/dL High >=240 mg/dL TRIGLYCERIDES 88 <150 mg/dL 07/24/2023 5:35 AM CDT [facility] HDL CHOLESTEROL 59 >40 mg/dL 5:35 AM CDT [facility] NON-HDL CHOLESTEROL 78 <145 mg/dl 07/24/2023 5:35 AM CDT [facility] CHOL/HDL RATIO 2.32 <4.50 07/24/2023 5:35 AM CDT [facility] LDL CHOLESTEROL 60 <=130 mg/dL 07/24/2023 5:35 AM CDT [facility] VLDL CHOLESTEROL 18 <=30 mg/dL 07/24/2023 5:35 AM CDT [facility] PROVIDER ORDERED STATUS RANDOM 07/24/2023 5:35 AM CDT [facility] Blood BLOOD SPECIMEN / Unknown Venipuncture / Unknown 07/23/2023 8:40 AM CDT 07/23/2023 8:40 AM CDT Alisha Trujillo MD CHEMISTRY [facility] [address] [place] [address], * (ABNORMAL) XR DXA BONE DENSITY 2 [...] to assess therapeutic efficacy. Odette Younger PA-C [facility] 06/26/2022 Narrative 06/26/2022 1:34 PM CDT For Patients: Results are automatically released to your [facility] account once available, in compliance with federal regulations. This means that you may see your results before your provider has had a chance to review them. Please allow 2-3 business days for your provider to comment on the results. XR DXA Bone Mineral Density (BMD) EXAM LOCATION: [address] [address] PATIENT NAME: Shefali Sanders DATE OF : [...] two scanners are made by the same spa host. PROCEDURE: Dual-energy x-ray absorptiometry performed with routine [...] malvin Non-React malvin 07/12/2020 4:28 PM CDT [facility] Comment:Antibodies to HCV no t detected; does not exclude the possibility of exposure to HCV. Blood BLOOD SPECIMEN / Unknown Venipuncture / Unknown 07/12/2020 8:36 AM CDT 07/12/2020 8:36 AM CDT Nataly Rodríguez MD SEND OUTS [facility] [address] [place] [address], [place] * SCAN-COLONOSCOPY (10/19/2017 1:45 PM CDT) Narrative Procedure Note Lorena Canela MD - 10/19/2017 12:51 PM CDT [facility], [address], [address], [place] [address] Patient Name: Shefali Sanders Gender: Female Exam Date: 10/19/2017 Visit Number: [id number] Age: 67 Years 5 Months Date of : 1950 Attending MD: Lorena Canela MD Medical Record#: [id number] ----- Procedure: Colonoscopy Indications: Recent history of [...] 56 Race: Ethnicity: Not or Preferred Language: British cc: Nataly Rodríguez MD cc: Nataly Rodríguez MD [facility] [phone] Lorena Canela MD OTHER from Last 3 Months or Most Recently Relevant to Health Maintenance Advance Directives Documents on File Type Date Recorded Patient Planer Chain Offbearer Expl anation Healthcare Directive 02/06/2018 8:13 AM * Full Code (Latest Code Status on File) Date Activated Date Inactivated Comments 01/31/2018 10:18 AM 02/02/2018 3:15 PM Care Teams Paste Up Copy Camera Operator Relationship Specialty Start Date End Date Nataly Rodrí[place] [address] PCP - General 07/14/05
== END 2023-12-03 13:14 | disposition home or self-care (01) ==
PROVIDERS: Emergency Provider Emergency Medicine; PCP Family Medicine
DX: K56.41 Fecal impaction (principal)
CPT/HCPCS: 99283; 99284

== ENCOUNTER 2024-03-12 09:00 | Outpatient (RCR) | payer MEDICARE, BC, SELFPAY | END 2024-04-02 12:40 | disposition home or self-care (01) | PROVIDERS: PCP Family Medicine; Visit Provider Family Medicine | DX: R10.32 Left lower quadrant pain (principal); M25.561 Pain in right knee; R53.1 Weakness; R26.9 Unspecified abnormalities of gait and mobility; R26.81 Unsteadiness on feet; Z51.89 Encounter for other specified aftercare | CPT/HCPCS: 97110; 97140; 97161 ==

== ENCOUNTER 2024-08-26 06:34 | Day surgery (SDC) | payer MEDICARE, BC, SELFPAY ==
[2024-08-26] VITALS (11 sets, daily range): BP systolic 90–139; BP diastolic 56–95; PULSE 67–79; RESP 16; TEMP 36.1–36.9; O2SAT 95–100; BMI 31.1
[2024-08-26] MEDS: LACTATED RINGERS 1000 ML 1,000 ML 100 ML IV (06:40)
[2024-08-26] MEDS: SODIUM CHLORIDE 0.9 % (FLUSH) 10 ML SYRINGE IVF (07:19)
[2024-08-26] MEDS: CEFAZOLIN 1 GM inj IVP (07:49)
[2024-08-26] MEDS: BUPIVACAINE 0.25% 30 ML INJECTION (08:29)
--- NOTE | 2024-08-26 08:39 | P.ORPRC_ITS ---
Procedure Note Date of procedure: 08/26/24 Procedure: PREOPERATIVE DIAGNOSIS: Right total knee arthroplasty patellar clunk syndrome POSTOPERATIVE DIAGNOSIS: Right total knee arthroplasty patellar clunk syndrome NAME OF OPERATION: Right total knee arthroplasty arthroscopic debridement SURGEON: Sony Damian MD PRIVATE BRANCH EXCHANGE INSTALLER: Nelsy Riggs PA-C ANESTHESIA: Spinal ESTIMATED BLOOD LOSS: 0 mL COMPLICATIONS: None SPECIMENS: None DRAINS: None PREOPERATIVE ANTIBIOTICS: Ancef 1 g INDICATIONS: The patient is a 74-year-old with a history of right total knee arthroplasty patellar clunk syndrome. Operative intervention was recommended. The risks, benefits and expected outcomes were discussed in detail. These included but were not limited to: Infection, bleeding, injury to blood vessel or nerve, venous thromboembolism. All questions were answered to their satisfac tion. PROCEDURE: Spinal anesthesia was administered. The patient was placed supine on the operating room table. The right lower extremity was prepped and draped in the usual sterile fashion. The limb was exsanguinated with the Barber bandage. The pneumatic tourniquet was inflated to 300 mmHg. A standard anterolateral portal was established. The arthroscope was introduced. The working portal was established anteromedially. Diagnostic arthroscopy was performed with findings as follows: The patellar component is intact with circumferential scarring surrounding it. The femoral component is normal, the tibial polyethylene is normal. The scarring posterior to the patellar tendon was debrided with the radiofrequency probe and shaver. A superolateral portal was placed. Then we aggressively debrided around the patellar component and posterior to the quads tendon with the shaver and radiofrequency probe. Arthroscopic instruments were removed, the portal sites were closed with a 3-0 nylon. Portals were injected with 0.25% Marcaine without epinephrine. A dry dressing was applied, the tourniquet was released. Sponge and needle counts were correct x 2. The patient tolerated the procedure well. There were no apparent complications. They were carefully transferred to the hospital bed and taken to the postanesthesia care unit in satisfactory condition. PLAN: The patient will be discharged to home. They may weightbear as tolerates. Range of motion will be unrestricted. They will follow up in the office in 2 weeks for a wound check and suture removal.
--- NOTE | 2024-08-26 11:05 | P.ANES_ITS ---
Anesthesia Charges Start Date/Time Anesthesia Start Date: 08/26/24 Anesthesia Start Time: 07:30 Stop Date/Time Anesthesia Stop Date: 08/26/24 Anesthesia Stop Time: 08:39 Summary Extremes of Age - Over 70 or under 1: MDA Coding CPT Codes CPT Codes: ANESTH KNEE JOINT SURGERY - 22309 ([id number]) P2 - PATIENT W/MILD SYST DISEASE, QK - SENIOR CLINICAL CONSULTANT 2-4 CNCRNT ANES PROC, QX - WOOL SCOURER SVC W/ MD MED DIRECTION Additional Codes: Summary - Extremes of Age - Over 70 or under 1: MDA ([id number])
--- NOTE | 2024-08-26 11:05 | W.ANESCHARGE ---
Anesthesia Charges Start Date/Time Anesthesia Start Date: 08/26/24 Anesthesia Start Time: 07:30 Stop Date/Time Anesthesia Stop Date: 08/26/24 Anesthesia Stop Time: 08:39 Summary Extremes of Age - Over 70 or under 1: MDA Coding CPT Codes CPT Codes: ANESTH KNEE JOINT SURGERY - 88968 ([id number]) P2 - PATIENT W/MILD SYST DISEASE, QK - MEDICAL RECORDS RECEPTIONIST 2-4 CNCRNT ANES PROC, QX - JAVA J2EE ARCHITECT SVC W/ MD MED DIRECTION Additional Codes: Summary - Extremes of Age - Over 70 or under 1: MDA ([id number])
--- NOTE | 2024-08-26 11:59 | P.ANES_ITS ---
Anesthesia Charges Start Date/Time Anesthesia Start Date: 08/26/24 Anesthesia Start Time: 07:30 Stop Date/Time Anesthesia Stop Date: 08/26/24 Anesthesia Stop Time: 08:39 Coding CPT Codes CPT Codes: ANESTH KNEE JOINT SURGERY - 58934 ([id number]) P2 - PATIENT W/MILD SYST DISEASE, QK - RIM ROLLER SETTER 2-4 CNCRNT ANES PROC, QX - AGGREGATE CONVEYOR OPERATOR SVC W/ MD MED DIRECTION
--- NOTE | 2024-08-26 11:59 | W.ANESCHARGE ---
Anesthesia Charges Start Date/Time Anesthesia Start Date: 08/26/24 Anesthesia Start Time: 07:30 Stop Date/Time Anesthesia Stop Date: 08/26/24 Anesthesia Stop Time: 08:39 Coding CPT Codes CPT Codes: ANESTH KNEE JOINT SURGERY - 70460 ([id number]) P2 - PATIENT W/MILD SYST DISEASE, QK - CERTIFIED REGISTERED NURSE PRACTITIONER 2-4 CNCRNT ANES PROC, QX - HOLE DIGGER TRUCK DRIVER SVC W/ MD MED DIRECTION
== END 2024-08-26 09:59 | disposition home or self-care (01) ==
LOC: OR 06:35
PROVIDERS: PCP Family Medicine; Visit Provider Orthopaedic Surgery
PROC: (CPT 29870; principal; 2024-08-26 07:45)
DX: M25.861 Other specified joint disorders, right knee (principal); Z96.651 Presence of right artificial knee joint
CPT/HCPCS: 29877; 01400; 99100; J0665; J0690; J1100; J2250; J2371; J2405; J3010; J7120

== ENCOUNTER 2024-09-14 20:01 | Outpatient (CLI) | payer MEDICARE, BC, SELFPAY ==
--- OUTSIDE RECORDS SUMMARY | 2024-09-16 16:24 | XMS_ITS | Clinical Summary ---
Author Organization [facility] Address [address] [place] [address] Care Team Providers Care Assembler Erector Name Role Phone Unavailable Primary Care Provider Unavailabl e Source Comments You are receiving this document as you are listed as the primary care provider,follow-up provider, or the patient has been referred to you for consultation.This is in compliance with the Medicare and[facility] EHR Incentive Program,which states Providers who transition their patient to another setting of careor provider of care or refers their patient to another provider of care shouldprovide summary care record for each transition of care or referral. Precision Biopsy Allergies Active Allergy Reactions Criticality Noted Date Comments Cyanoacrylate Rash High 05/26/2024 Avoid dermabond, liquiband Other Rash Medium 05/26/2024 Patch Testing 05/26/2024: Very Strong (3+) or Strong (2+) reactions: Butyl cyanoacrylate Mild (1+) reactions: Octyl cyanoacrylate (liquiband octyl) Balsam of [place] Fragrance mix I Borderline/questionable reactions: Povidone iodine Povidone Iodine Rash Low 05/26/2024 Contact allergy only; contrast/oral intake safe Medications No known medications Active Problems Problem Noted Date Diagnosed Date Allergic contact dermatitis due to other agents 05/26/2024 Overview (05/26/2024): SkinSAFE SFM Code: [id number] Encounters Date Type Department Care Team Description 08/29/2024 Telephone Contact [facility] [address] [place] [address] Unassigned, Provider Patch Testing (LVM [...] on file 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
--- OUTSIDE RECORDS SUMMARY | 2024-09-16 16:24 | XMS_ITS | Encounter Summary ---
[facility] Address [address] [place] [address] Care Team Providers Care Tenter Feeder Name Role Phone Unavailable Primary Care Provider Unavailabl e Reason for Visit * Reason Comments Patch Testing Encounter Details Date Type Department Care Team (Late st Contact Info) Description 05/26/2024 Telephone Contact [facility] [address] [place] [address] Zulay Metcalf MD [address] [place], [place] [id number] Patch Testing Social History Tobacco Use Types Packs/Day Years Used Date Smoking Tobacco: Never Assessed Comments Unknown Sex and Gender Information Value Date Recorded Sex Assigned at Not on file 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
--- OUTSIDE RECORDS SUMMARY | 2024-09-16 16:24 | XMS_ITS | Clinical Summary ---
Author Organization [facility] Address [address] [place] [address] Care Team Providers Care Sales Training Representative Name Role Phone Nataly Rodríguez MD Primary [...] reactions: Octyl cyanoacrylate (liquiband octyl) Balsam of [place] Fragrance mix I Borderline/questionable reactions: Povidone iodine [...] Encounters Date Type Department Care Team Description 09/16/2024 Travel 09/14/2024 Orders Only [facility] Scanner 1 scan: (1-Ord) [place], CT HEAD/BRAIN WO CON, 09/14/2024 09/10/2024 Travel 08/22/2024 12:35 PM CDT Office Visit [facility] [address] [place] [address] Oscar Zavala MD Preoperative Exam (DOS: 08/26/2024/RIGHT Knee Scar Tissue Removal/Dr Damian/[facility]) 08/22/2024 Travel 08/17/2024 Travel 07/25/2024 10:30 AM CDT Ancillary Procedure [facility] [address] [facility] [address] [place] [address] 07/25/2024 Travel 07/23/2024 9:20 AM CDT Ancillary Procedure [facility] [address] [place] [address] 07/23/2024 Travel 07/20/2024 Travel 07/18/2024 Travel 07/16/2024 8:00 AM CDT Office Visit [facility] [address] [facility] [address] [place] [address] Karishma Shoemaker, DO Derm Problem 07/16/2024 Travel 07/12/2024 Travel 07/03/2024 10:00 AM CDT Office Visit [facility] [address] [facility] [address] [place] [address] Karishma Shoemaker, DO Derm Problem 07/03/2024 Travel 06/28/2024 Travel 06/23/2024 8:40 AM CDT Office Visit [facility] [address] [place] [address] Oscar Zavala MD Musculoskeletal Problem (Follow-up LEFT [...] on file Legal Sex Female 5:25 AM CUSTOMS AND BORDER PROTECTION OFFICER Gender Identity Not on file Sexual Orientation [...] 36.7 C (98.1 F) 04/09/2024 8:59 AM CUSTOMS AND BORDER PROTECTION OFFICER Respiratory Rate 16 05/13/2018 10:0 8 AM CUSTOMS AND BORDER PROTECTION OFFICER Oxygen Saturation 100% 08/22/2024 12: 37 PM CDT Inhaled Oxygen Concentration - - Weight 74.8 kg (164 lb 14.4 oz) 025 12:37 PM CDT Height 156.2 cm (5' 1.5) 02/11/2024 9:07 AM CUSTOMS AND BORDER PROTECTION OFFICER Body Mass Index 30.65 02/11/2024 9:07 AM CUSTOMS AND BORDER PROTECTION OFFICER Plan of Treatment Upcoming Encounters Date Type Department Care Team (Late st Contact Info) Description 09/17/2024 11:15 AM CDT Orders Only [facility] [address] [place] [address] Lab, Farm 10/02/2024 12:30 PM CDT Office Visit [facility] [address] [address] Karishma Shoemaker, [address] [place] [address] 10/14/2024 10:55 AM CDT Office Visit [facility] [address] [place] [address] Nataly Rodríguez MD [address] [place] [address] Health Maintenance Due Date Last Done Comments [...] Procedure Name Priority Date/Time Associated Diagnosis Comments SCAN-CT INTERPRETATION 12:00 AM CDT MR HIP LEFT WO Routine 07/25/2024 10:59 [...] Recently Relevant to Health Maintenance Results * SCAN-CT INTERPRETATION (09/14/2024 12:00 AM CDT) Anatomical Region Laterality Modality Other us Scanner OTHER Final Result * MR HIP LEFT WO CONTRAST (07/25/2024 [...] For Patients: As a result of the 21st Century Cures Act, medical imaging exams and procedure reports are released immediately into your electronic medical record. You may view this report before your referring provider. If you have questions, please contact your health care provider. XR MAMMO GERMAN BILAT SCREEN [[id number]] CLINICAL HISTORY: This is an asymptomatic 74 y.o. patient. INDICATION FOR EXAM: Mammogram Screening. TECHNIQUE: CC and MLO views were obtained. This study was evaluated with the assistance of Computer-Aided Detection. Breast Tomosynthesis was used in interpretation. COMPARISON FILM: Yes 07/23/23 [facility] 07/17/22 [facility] FINDINGS: The breasts are heterogeneously dense, which may obscure small masses. There are no dominant masses, suspicious micro calcifications or areas of architectural distortion. us Nataly Rodríguez MD MAMMO Final Result * PATH TISSUE EXAM (07/03/2024 10:10 AM CDT) Case Report Pathology Report Case: [id number] Authorizing Provider: Karishma Shoemaker DO Collected: 07/03/2024 1010 Ordering Location: [facility] Received: 07/03/2024 15[facility] Pathologist: Dayami Fletcher MD Specimen: Skin, superior scalp 07/09/2024 2:32 PM CDT [facility] Final Diagnosis SKIN, SUPERIOR SCALP, BIOPSY: 1. Consistent with lichen planopilaris 2. Negative for malignancy 07/09/2024 2:32 PM CDT [facility] at 1432 CDT Comment Clinical photo is reviewed concurrently with histomorphology. 07/09/2024 2:32 PM CDT [facility] Clinical Information Hair loss of scalp with perifollicular erythema. Ddx: LPP vs other. 07/09/2024 2:32 PM CDT [facility] Gross Description A) Received in formalin, labeled with the patient's name and superior scalp, is a 0.4 cm in diameter punch biopsy, excised to a depth of 0.4 cm. The skin surfaces yousif-white, rubbery and hairbearing. The specimen is inked blue, sectioned horizontally and entirely submitted in one cassette. DS 07/07/2024 07/09/2024 2:32 PM CDT [facility] Microscopic Description The final diagnosis is based on microscopic examination of appropriate sections of all specimens. Sections show a band-like folliculocentric lymphohistiocytic infiltrate. Basal cell hydropic change, cytoid bodies are seen. The presence of blue ink is confirmed on tissue sections. 07/09/2024 2:32 PM CDT [facility]AL LABORAT[facility] Additional Information Interpreted at [facility] [employer] [facility], Central Laboratory - [address] [facility] [address], [place] [address] 07/09/2024 2:32 PM CDT [facility] ENTRAL LAB[facility] Other SPECIMEN FROM SKIN / Unknown Non-Blood / Unknown 07/03/2024 10:10 AM CDT 07/03/2024 3:31 PM CDT us Karishma Shoemaker DO PATHOLOGY/CYTOLOGY Duyen larson Result Performing Organization Address City/State/[facility] Co de Phone Number [facility] [address] [place] [address], [place] * (ABNORMAL) XR DXA BONE DENSITY 2 [...] to assess therapeutic efficacy. Odette Younger PA-C [facility] 06/26/2022 Narrative 06/26/2022 1:34 PM CDT For Patients: Results are automatically released to your [employer] ([employer]) account once available, in compliance with federal regulations. This means that you may see your results before your provider has had a chance to review them. Please allow 2-3 business days for your provider to comment on the results. XR DXA Bone Mineral Density (BMD) EXAM LOCATION: [address] [place] [address] PATIENT NAME: Shefali Sanders DATE OF : [...] two scanners are made by the same inserting press operator. PROCEDURE: Dual-energy x-ray absorptiometry performed with routine [...] hip fracture: 5.8%. Nataly Rodríguez MD DEXA Final Result * ANTI HCV (07/12/2020 8:36 AM CDT) HEPATITIS C ANTIBODY Non-React malvin Non-React malvin 07/12/2020 4:28 PM CDT [employer] [facility] Comment:Antibodies to HCV no t detected; does not exclude the possibility of exposure to HCV. Blood BLOOD SPECIMEN / Unknown Venipuncture / Unknown 07/12/2020 8:36 AM CDT 07/12/2020 8:36 AM CDT Nataly Rodríguez MD SEND OUTS Final Result [employer] [facility] [address] [place] [address], [place] from Last 3 Months or Most Recently Relevant to Health Maintenance Insurance [address] [place] [id number] MEDICARE PART B HB ONLY BLUE CROSS [place] BLUE HB ONLY MEDICARE PART A HB ONLY BLUE [employer]OSS [place] BLUE MR PB ONLY [address] [place] [id number] [address] [place] [id number] Advance Directives Documents on File Type Date Recorded Patient Data Control Clerk Expl anation Healthcare Directive 02/06/2018 8:13 AM * Full Code (Latest Code Status on File) Date Activated Date Inactivated Comments 01/31/2018 10:18 AM 02/02/2018 3:15 PM Care Teams Sales Training Representative Relationship Specialty Start Date End Date Nataly Rodríguez MD [address] [place] [address] PCP - General 07/14/05
--- OUTSIDE RECORDS SUMMARY | 2024-09-16 16:24 | XMS_ITS | Encounter Summary ---
Author [facility] Address [address], [place] [address] Care Team Providers Care Senior Education Specialist Name Role Phone Unavailable Primary Care Provider [...] Telephone Contact [facility] [address] [place] [address] Unassigned, Provider [address] [place] [address] Patch Testing (LVM about needing access to what was tested for during patch testing due to a reaction after a procedure/Called back and shared the number for medical records ) Social History Tobacco Use Types Packs/Day Years Used Date Smoking Tobacco: Never Assessed Comments Unknown Sex and Gender Information Value Date Recorded Sex Assigned at Not on file Legal 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
--- OUTSIDE RECORDS SUMMARY | 2024-09-17 00:20 | XMS_ITS | Clinical Summary ---
Author Organization [facility] Address [address] [place] [address] Care Team Providers Care Investment Representative Name Role Phone Unavailable Primary Care Provider Unavailabl e Source Comments You are receiving this document as you are listed as the primary care provider,follow-up provider, or the patient has been referred to you for consultation.This is in compliance with the Medicare and[facility] EHR Incentive Program,which states Providers who transition their patient to another setting of careor provider of care or refers their patient to another provider of care shouldprovide summary care record for each transition of care or referral. 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
--- OUTSIDE RECORDS SUMMARY | 2024-09-17 00:20 | XMS_ITS | Encounter Summary ---
Author Organization [facility] Address [address] [address] Care Team Providers Care Regional Vice President Life Sales Name Role Phone Unavailable Primary Care Provider [...] Telephone Contact [facility] [address] [place] [address] Unassigned, Provider [address] [place] [address] Patch Testing (LVM about needing access to what was tested for during patch testing due to a reaction after a procedure/Called back and shared the number for medical records ) Social History Tobacco Use Types Packs/Day Years Used Date Smoking Tobacco: Never Assessed Comments Unknown Sex and Gender Information Value Date Recorded Sex Assigned at Not on file Legal 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
--- OUTSIDE RECORDS SUMMARY | 2024-09-17 00:20 | XMS_ITS | Encounter Summary ---
Author [facility] Address [address] [place] [address] Care Team Providers Care Returner Name Role Phone Unavailable Primary Care Provider Unavailabl e Reason for Visit * Reason Comments Patch Testing Encounter Details Date Type Department Care Team (Late st Contact Info) Description 05/26/2024 Telephone Contact [facility] [address] [place] [address] Zulay Metcalf MD [address] [place], [place] [id number] Patch Testing Social History Tobacco Use Types Packs/Day Years Used Date Smoking Tobacco: Never Assessed Comments Unknown Sex and Gender Information Value Date Recorded Sex Assigned at Not on file 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
--- OUTSIDE RECORDS SUMMARY | 2024-09-17 00:21 | XMS_ITS | Clinical Summary ---
Author Organization [facility] Address [address] [place] [address] Care Team Providers Care Chief Engineer Name Role Phone Nataly Rodríguez MD Primary [...] reactions: Octyl cyanoacrylate (liquiband octyl) Balsam of [place] Fragrance mix I Borderline/questionable reactions: Povidone iodine [...] Team Description 09/16/2024 Travel 09/14/2024 Orders Only [facility] Scanner 1 scan: (1-Ord) [employer], CT HEAD/BRAIN WO CON, 09/14/2024 09/10/2024 Travel 08/22/2024 12:35 PM CDT Office Visit [facility] [address] [place] [address] Oscar Zavala MD Preoperative Exam (DOS: 08/26/2024/RIGHT Knee Scar Tissue Removal/Dr Damian/[facility]) 08/22/2024 Travel 08/17/2024 Travel 07/25/2024 10:30 AM CDT Ancillary Procedure [facility] [address] [facility] [address] [place] [address] 07/25/2024 Travel 07/23/2024 9:20 AM CDT Ancillary Procedure [facility] [address] [facility] [place] [address] 07/23/2024 Travel 07/20/2024 Travel 07/18/2024 Travel 07/16/2024 8:00 AM CDT Office Visit [facility] [address] [facility] [address] [place] [address] Karishma Shoemaker, DO Derm Problem 07/16/2024 Travel 07/12/2024 Travel 07/03/2024 10:00 AM CDT Office Visit [facility] [address] [facility] [address] [place] [address] Karishma Shoemaker, DO Derm Problem 07/03/2024 Travel 06/28/2024 Travel 06/23/2024 8:40 AM CDT Office Visit [facility] [address] [place] [address] Oscar Zavala MD Musculoskeletal Problem (Follow-up LEFT [...] on file Legal Sex Female 5:25 AM CARE ADMINISTRATIVE TECH Gender Identity Not on file Sexual Orientation [...] 36.7 C (98.1 F) 04/09/2024 8:59 AM CARE ADMINISTRATIVE TECH Respiratory Rate 16 05/13/2018 10:0 8 AM CARE ADMINISTRATIVE TECH Oxygen Saturation 100% 08/22/2024 12: 37 PM CDT Inhaled Oxygen Concentration - - Weight 74.8 kg (164 lb 14.4 oz) 025 12:37 PM CDT Height 156.2 cm (5' 1.5) 02/11/2024 9:07 AM CARE ADMINISTRATIVE TECH Body Mass Index 30.65 02/11/2024 9:07 AM CARE ADMINISTRATIVE TECH Plan of Treatment Upcoming Encounters Date Type Department Care Team (Late st Contact Info) Description 09/17/2024 11:15 AM CDT Orders Only [facility] [address] [place] [address] Lab, Farm 10/02/2024 12:30 PM CDT Office Visit [facility] [address] [address] Karishma Shoemaker, [address] [place] [address] 10/14/2024 10:55 AM CDT Office Visit [facility] [address] [place] [address] Nataly Rodríguez MD [address] [place] [address] Health Maintenance Due Date Last Done Comments [...] care provider. XR MAMMO GERMAN BILAT SCREEN [[id number]] CLINICAL HISTORY: This is an asymptomatic 74 y.o. patient. INDICATION FOR EXAM: Mammogram Screening. TECHNIQUE: CC and MLO views were obtained. This study was evaluated with the assistance of Computer-Aided Detection. Breast Tomosynthesis was used in interpretation. COMPARISON FILM: Yes 07/23/23 [facility] 07/17/22 [facility] FINDINGS: The breasts are heterogeneously dense, which may obscure small masses. There are no dominant masses, suspicious micro calcifications or areas of architectural distortion. us Nataly Rodríguez MD MAMMO Final Result * PATH TISSUE EXAM (07/03/2024 10:10 AM CDT) Case Report Pathology Report Case: [id number] Authorizing Provider: Karishma Shoemaker DO Collected: 07/03/2024 1010 Ordering Location: [facility], [facility] Received: 07/03/2024 1531 [facility] Pathologist: Dayami Fletcher MD Specimen: Skin, superior scalp 07/09/2024 2:32 PM CDT [facility] Final Diagnosis SKIN, SUPERIOR SCALP, BIOPSY: 1. Consistent with lichen planopilaris 2. Negative for malignancy 07/09/2024 2:32 PM CDT [facility] at 1432 CDT Comment Clinical photo is reviewed concurrently with histomorphology. 07/09/2024 2:32 PM CDT [facility] Clinical Information Hair loss of scalp with perifollicular erythema. Ddx: LPP vs other. 07/09/2024 2:32 PM CDT [facility] Gross Description A) Received in formalin, labeled with the patient's name and superior scalp, is a 0.4 cm in diameter punch biopsy, excised to a depth of 0.4 cm. The skin surfaces yousif-white, rubbery and hairbearing. The specimen is inked blue, sectioned horizontally and entirely submitted in one cassette. DS 07/07/2024 07/09/2024 2:32 PM CDT [facility] Microscopic Description The final diagnosis is based on microscopic examination of appropriate sections of all specimens. Sections show a band-like folliculocentric lymphohistiocytic infiltrate. Basal cell hydropic change, cytoid bodies are seen. The presence of blue ink is confirmed on tissue sections. 07/09/2024 2:32 PM CDT [facility]ORAT[facility]-C ENTRAL LABORATORY Additional Information Interpreted at [facility] [employer] [facility], Central Laboratory - [address] [place] [facility] [address], [place] [address] 07/09/2024 2:32 PM CDT [facility] Other SPECIMEN FROM SKIN / Unknown Non-Blood / Unknown 07/03/2024 10:10 AM CDT 07/03/2024 3:31 PM CDT us Karishma Shoemaker DO PATHOLOGY/CYTOLOGY Duyen larson Result Performing Organization Address City/State/[facility] Co de Phone Number [facility] [address] [place] [address], [place] * (ABNORMAL) XR DXA BONE DENSITY [...] to assess therapeutic efficacy. Odette Younger PA-C [facility] 06/26/2022 Narrative 06/26/2022 1:34 PM CDT For Patients: Results are automatically released to your [employer] account once available, in compliance with federal regulations. This means that you may see your results before your provider has had a chance to review them. Please allow 2-3 business days for your provider to comment on the results. XR DXA Bone Mineral Density (BMD) EXAM LOCATION: [address] [place] [address] PATIENT NAME: Shefali Sanders DATE OF : [...] two scanners are made by the same market research analyst. PROCEDURE: Dual-energy x-ray absorptiometry performed with routine [...] 10-year probability of hip fracture: 5.8%. Nataly Rodríugez MD DEXA Final Result * ANTI HCV (07/12/2020 8:36 AM CDT) HEPATITIS C ANTIBODY Non-React malvin Non-React malvin 07/12/2020 4:28 PM CDT [facility] Comment:Antibodies to HCV no t detected; does not exclude the possibility of exposure to HCV. Blood BLOOD SPECIMEN / Unknown Venipuncture / Unknown 07/12/2020 8:36 AM CDT 07/12/2020 8:36 AM CDT Nataly Rodríguez MD SEND OUTS Final Result [facility] [address] [place] [address], [place] from Last 3 Months or Most Recently Relevant to Health Maintenance Insurance [address] [place] [id number] MEDICARE PART B HB ONLY BLUE [place]OSS [place] BLUE HB ONLY MEDICARE PART A HB ONLY BL[place] BLUE MR PB ONLY [address] [place] [id number] [address] [place] [id number] Advance Directives Documents on File Type Date Recorded Patient Inspector Line Expl anation Healthcare Directive 02/06/2018 8:13 AM * Full Code (Latest Code Status on File) Date Activated Date Inactivated Comments 01/31/2018 10:18 AM 02/02/2018 3:15 PM Care Teams Chief Engineer Relationship Specialty Start Date End Date Nataly Rodríguez MD [address] [place] [address] PCP - General 07/14/05
== END 2024-09-14 20:02 | disposition home or self-care (01) ==
PROVIDERS: PCP Family Medicine; Visit Provider Student in an Organized Health Care Education/Training Program
DX: R51.9 Headache, unspecified (principal); R41.0 Disorientation, unspecified; R10.9 Unspecified abdominal pain
CPT/HCPCS: A0425; A0427

== ENCOUNTER 2024-09-14 20:32 | Emergency (ER) | payer MEDICARE, BC, SELFPAY ==
--- OUTSIDE RECORDS SUMMARY | 2017-10-19 08:46 | XMS_ITS | Continuity of Care Document ---
Author Organization [facility] Address [address] [address] [place] [address] Phone Care Team Providers Care Grinder Setup Operator Name Role Phone Mamadou Delgadillo CRNA Unavailable Unavailable Allergies, Adverse Reactions, Alerts Substance Reaction Status Criticality valdecoxib Active No Information NITROFURANTOIN MACROCRYSTALLINE Active No Information metronidazole Active No Information CEFPODOXIME PROXETIL Active No Info rmation ciprofloxacin Active No Information nitrofurantoin Active No Informatio n Sulfa (Sulfonamide Antibiotics) Active No Information Medications Medication Instructions Dosage Effective Dates (start - stop) Status Comments VITAMIN D3 (unknown strength) take 2 capsule by oral route every day Not Available - Active Procedures Procedure Date CRS Charges Advance Directives Directive Yes / No Effective Date File Name No Information Encounters Encounter Description Practice Location Reason(s) For Visit Diagnoses Date Provider Providers Copied on Encounter [facility] [place], [address] [address], [place], [place], [id number], [place] tel:[phone] [facility] No Information 8 Elie Cedillo. [address], [id number], [place]. tel:[phone] Referring Provider: Clayton De La Paz MD, [address], [address]. tel:[phone] [facility] [place], [address] [address], [place], [place], [id number], [place] tel:[phone] [facility] Diverticulosis of large intestine without hemorrhageEncou nter for screening for malignant neoplasm of colonDvrtclos of lg int w/o perforation or abscess w/o bleeding 201 8 No Information Referring Provider: Nataly Rodríguez MD K, [address], [place], [address]. tel:[phone] Family History Family Member Type Diagnosis Age At Onset Son Problem (finding) Alive and well Brother Problem (finding) Father Problem (finding) malignant neoplasm of u rinary bladder Father Problem (finding) Sister Problem (finding) Mother Problem (finding) Payers Payer name Insurance type Covered alliance party ID Authoriza tion(s) Medicare NGS MB [id number] Blue Cross [place] Blue BL [id number] Social History Type Description Quantity Date Captured Comments Sex Female Smoking Status No Information Chief Complaint And Reason For Visit No Information Reason For Referral Reason For Referral No Information History Of Present Illness Encounter Date Complaint History Of Prese nt Illness No Information Functional Status Date Functional Assessmen t No Information Instructions Date Instruction Additional Infor mation No Information Assessments Type Assessment Date No Information Patient Care Teams Name Effective Dates (start - stop) Status Members No Information
--- OUTSIDE RECORDS SUMMARY | 2017-10-19 08:46 | XMS_ITS | Continuity of Care Document ---
Author Organization [facility] Address [address] [address] [place] [address] Phone Care Team Providers Care Fur Blowing Machine Attendant Name Role Phone Mamadou Delgadillo CRNA Unavailable [...] Diagnoses Date Provider Providers Copied on Encounter [facility] [place], [address] [address], [place], [place], [id number], [place] tel:[phone] [facility] No Information 8 Elie Cedillo. [address], [id number], [place]. tel:[phone] Referring Provider: Clayton De La Paz MD, [address], [address]. tel:[phone] [facility] [place], [address] [address], [place], [place], [id number], [place] tel:[phone] [facility] Diverticulosis of large intestine without hemorrhageEncou nter for screening for malignant neoplasm of colonDvrtclos of lg int w/o perforation or abscess w/o bleeding 201 8 No Information Referring Provider: Nataly Rodríguez MD K, [address], [place], [address]. tel:[phone] Family History Family Member Type Diagnosis Age At Onset Son Problem (finding) Alive and well Brother Problem (finding) Father Problem (finding) malignant neoplasm of u rinary bladder Father Problem (finding) Sister Problem (finding) Mother Problem (finding) Payers Payer name Insurance type Covered democrat ID Authoriza tion(s) Medicare NGS MB [id number] Blue Cross [place] Blue BL [id number] Social History Type Description Quantity Date Captured [...]
--- OUTSIDE RECORDS SUMMARY | 2017-10-19 08:46 | XMS_ITS | Continuity of Care Document ---
Author Organization [facility] Address [address] [address] [place] [address] Care Team Providers Care Order Clerk Name Role Phone [place], [place] Unavailable Unav ailable Procedures Procedure Date Colono Pt Doc Pt W/o Advance Directives Directive Yes / No Effective Date File Name No Information Encounters Encounter Description Practice Location Reason(s) For Visit Diagnoses Date Provider Providers Copied on Encounter [facility], [address] [address], [place], [place], [id number], [place] [facility] No Information [facility]. [address] [address], [place], [place], [id number], . tel:[phone] Family History Family Member Type Diagnosis Age At Onset No Information Payers Payer name Insurance type Covered green party ID Authoriza tion(s) Medicare NGS MB [id number] Blue Cross [place] Blue BL [id number] Social History Type Description Quantity Date Captured [...]
--- OUTSIDE RECORDS SUMMARY | 2017-10-19 08:46 | XMS_ITS | Continuity of Care Document ---
Author Organization [facility] Address [address] [address] [place] [address] Care Team Providers Care Civil Structural Designer Name Role Phone [place], [place] Unavailable Unav ailable Procedures Procedure Date Colono Pt Doc Pt W/o Advance Directives Directive Yes / No Effective Date File Name No Information Encounters Encounter Description Practice Location Reason(s) For Visit Diagnoses Date Provider Providers Copied on Encounter [facility], [address] [address], [place], [place], [id number], [place] [facility] No Information [facility]. [address] [address], [place], [place], [id number], . tel:[phone] Family History Family Member Type Diagnosis Age At Onset No Information Payers Payer name Insurance type Covered green party ID Authoriza tion(s) Medicare NGS MB [id number] Blue Cross [place] Blue BL [id number] Social History Type Description Quantity Date Captured [...]
[2024-09-14] VITALS (19 sets, daily range): BP systolic 124–142; BP diastolic 69–102; PULSE 71–81; RESP 10–30; TEMP 36.2; O2SAT 92–99; BMI 30.2
--- OUTSIDE RECORDS SUMMARY | 2024-09-14 20:35 | XMS_ITS | Encounter Summary ---
[facility] Organization [facility] Address [address] [place] [address] Care Team Providers Care Automation Manager Name Role Phone Unavailable Primary Care Provider Unavailabl e Reason for Visit * Reason Comments Patch Testing Encounter Details Date Type Department Care Team (Late st Contact Info) Description 05/26/2024 Telephone Contact [facility] [address] [place] [address] Zulay Metcalf MD [address] [place], [place] [id number] Patch Testing Social History Tobacco Use Types Packs/Day Years Used Date Smoking Tobacco: Never Assessed Comments Unknown Sex and Gender Information Value Date Recorded Sex Assigned at Not on file Legal Sex Female 6:12 AM SPRING BENDER Gender Identity Female 05/22/2024 7:47 AM SPRING BENDER Sexual Orientation Not on file documented as of this encounter Plan of Treatment Not on file documented as of this encounter Visit Diagnoses Not on filedocumented in this encounter
--- OUTSIDE RECORDS SUMMARY | 2024-09-14 20:36 | XMS_ITS | Clinical Summary ---
Author Organization [employer] [facility] Address [address] [place] [id number] Care Team Providers Care Java Designer Name Role Phone Nataly Rodríguez MD Primary Care Provide r Allergies Active Allergy Reactions Criticality Noted Date Comments 2-Octyl Cyanoacrylate Rash High 05/26/2024 Avoid dermabond, liquiband Cefpodoxime Hives 11/08/2017 from vantin Ciprofloxacin Hives 10/29/2009 Metronidazole Hives 11/08/2017 Nitrofurantoin Hives 06/22/2006 from macrodantin Povidone-Iodine Rash Low 05/26/2024 Contact allergy only; contrast/oral intake safe Scopolamine Hives 09/03/2014 Sulfa (Sulfonamide Antibiotics) Hives 06/22/2006 Unlisted Allergen (Include Detail In Comments) Rash Medium 05/26/2024 Patch Testing 05/26/2024: Very Strong (3+) or Strong (2+) reactions: Butyl cyanoacrylate Mild (1+) reactions: Octyl cyanoacrylate (liquiband octyl) Balsam of Lennox Fragrance mix I Borderline/questionable reactions: Povidone iodine Valdecoxib Hives 06/22/2006 from Bextra Medications cholecalciferol (Vitamin D) 1,000 unit capsuleIndication s:Osteopenia, unspecified location Take 1 Capsule (1,000 units) by mouth once daily. 0 3 Active polyethylene glycol 3350 (MIRALAX ORAL) Take by mouth. Active rosuvastatin (Crestor) 20 mg tabletIndications :Atherosclerosis Take 1 Tablet (20 mg) by mouth at bedtime. 90 Tablet 3 4 Active omeprazole (PRILOSEC) 20 mg Delayed-Release capsuleIndication s:Gastroesophagea l reflux disease with esophagitis, unspecified whether hemorrhage Take 1 Capsule (20 mg) by mouth once daily before a meal. 90 Capsule 3 4 Active amoxicillin 250 mg capsuleIndication s:History of UTI Take one after intercourse. 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 Take with food and water. Do not lie down for 30 min after taking. Wear sunscreen. 30 Capsule 1 5 Active clobetasol 0.05% TOPICAL 0.05 % external solutionIndicatio ns:Lichen planopilaris Apply thin layer daily or nightly as needed to the scalp. Do not use on face/neck/ea rs/underarms /groin. 50 mL 2 5 Active Active Problems Problem Noted Date Diagnosed Date Left groin pain 04/09/2024 Overview (04/09/2024): March 2024: Mild osteoarthritis on X-ray. 04/09/2024 left hip ultrasound guided intraarticular steroid injection by Dr. José. Sigmoid diverticulitis 02/01/2018 Gastroesophageal reflux disease without [...] Encounters Date Type Department Care Team Description 09/10/2024 Travel 08/22/2024 12:35 PM CDT Office Visit [facility] [address] [place] [address] Oscar Zavala MD Preoperative Exam (DOS: 08/26/2024/RIGHT Knee Scar Tissue Removal/Dr Damian/[facility]) 08/22/2024 Travel 08/17/2024 Travel 07/25/2024 10:30 AM CDT Ancillary Procedure [facility] [address] [place] [address] 07/25/2024 Travel 07/23/2024 9:20 AM CDT Ancillary Procedure [facility] [address] [place] [address] 07/23/2024 Travel 07/20/2024 Travel 07/18/2024 Travel 07/16/2024 8:00 AM CDT Office Visit [facility] [address] [place] [address] Karishma Shoemaker, DO Derm Problem 07/16/2024 Travel 07/12/2024 Travel 07/03/2024 10:00 AM CDT Office Visit [facility] [address] [place] [address] Karishma Shoemaker, DO Derm Problem 07/03/2024 Travel 06/28/2024 Travel 06/23/2024 8:40 AM CDT Office Visit [facility] [address] [facility] [place] [address] Oscar Zavala MD Musculoskeletal Problem (Follow-up LEFT Hip pain ~ having worsening pain/DOO 01/2024) 06/23/2024 Travel 06/18/2024 Travel from Last 3 Months Immunizations Immunization Administration Dates Next Due AMB Influenza, IIV3 (Age >=3 years)(Flu Clinic Only) 01/02/2013 AMB Influenza, IIV4 PF (=>6 mos Flulaval,Fluzone Fluarix)(Flu Clinic Only) 12/30/2016,02/09/2016 Amb Influenza, Inact (High-d ose) (Flu Clinic Only) 01/13/2015 COVID-19 VACCINE SPIKEVAX (M ODERNA 50MCG/0.5ML) 12YO+ PFS 01/02/2024,01/23/2023 COVID-19 vaccine (Moderna 10 0mcg/0.5mL) PF, MDV [...] Inactivated IIV3 (Age 65+ Years) Preserv Free 01/02/2024,01/15/2018 Pneumococcal Poly,23-Valent (Pneumovax) 09/03/19 14 Pneumococcal conj 13-Valent (Prevnar 13) 016 RSV, Recombinant ADJ Reconst ituted (Arexvy 120MCG/0.5mL) 02/28/2024 Tdap 04/07/2020,01/18/2010 Typhoid (injectable) 01/18/2010 Zoster (Shingrix-RZV, recombinant) 11/21/2018, Zoster (Zostavax-ZVL, live) 09/09/2010 Family History Medical History Relation Name Comments Coronary artery disease Brother Juaquin Che Heart Disease Brother Juaquin Che Age 65 Heart failure Brother Juaquin Che Cancer Father Ashok Che bladder Coronary artery disease Father Ashok Che Stroke Mother Jeana Che Coronary artery disease Sister 1 Kacy Che Heart Disease Sister 1 Kacy Che Age 65 Heart failure Sister 1 Kacy Che Stroke Sister 2 After mva, skin cancer Cancer-breast No Family History Relation Name Status Comments Brother Juaquin Che Father Ashok Che Mother Jeana Che Sister 1 Kacy Che Sister 2 Social History Tobacco Use Types Packs/Day Years Used Date Smoking Tobacco: Never Smokeless Tobacco: Never Tobacco Cessation:Counseling Given: Yes Alcohol Use Standard Drinks/Week Comments Not Currently 0 (1 standard drink = 0.6 oz pur e alcohol) PHQ-2 Answer Date Recorded PHQ-2 TOTAL SCORE 0 02/07/2024 Social Connections Answer Date Recorded Do you often feel lonely or isolated from those around you? 0 02/07/2024 Financial Resource Strain Answer Date R ecorded Difficulty of Paying Living Expenses 3 02/07/2024 Difficulty of Paying Living Expenses Not on file 02/07/2024 Food Insecurity Answer Date Recorded Do you worry your food will run out before you are able to buy more? 1 02/07/2024 Transportation Needs Answer Date Record ed Does lack of transportation keep you from medica l appointments? 1 02/07/2024 Does lack of transportation keep you from work, meetings or getting things that you need? 1 02/07/2024 Housing Stability Answer Date Recorded What is your housing situation today? 1 02/07/2024 Utilities Answer Date Recorded Do you have trouble paying f or utilities (for example, heat, electricity, water, phone)? 1 02/07/2024 Comments No Sex and Gender Information Value Date Recorded Sex Assigned at Not on file Legal Sex Female 5:25 AM PRIZE JACKER Gender Identity Not on file Sexual Orientation Not on file Travel History Travel Start Travel End [place] 08/09/2024 08/15/2024 Obstetrics History Para Term AB IAB SAB Ectopic Multiple Livin g Live Births 3 2 2 1 1 2 Date Outcome GA Total Labor Labor/2nd/3rd Weight Sex Type Anes PTL Antionette A1 A5 Name Clin Term Term SAB Last Filed Vital Signs Vital Sign Reading Time Taken Comments Blood Pressure 116/78 08/22/2024 12:37 PM CDT Pulse 71 08/22/2024 12:37 PM CDT Temperature 36.7 C (98.1 F) 04/09/2024 8:59 AM PRIZE JACKER Respiratory Rate 16 05/13/2018 10:0 8 AM PRIZE JACKER Oxygen Saturation 100% 08/22/2024 12: 37 PM CDT Inhaled Oxygen Concentration - - Weight 74.8 kg (164 lb 14.4 oz) 025 12:37 PM CDT Height 156.2 cm (5' 1.5) 02/11/2024 9:07 AM PRIZE JACKER Body Mass Index 30.65 02/11/2024 9:07 AM PRIZE JACKER Plan of Treatment Upcoming Encounters Date Type Department Care Team (Late st Contact Info) Description 09/15/2024 10:45 AM CDT [facility] [address] [address] [place] [address] [place] [address] 10/14/2024 10:55 AM CDT Office Visit [facility] [address] [place] [address] Nataly Rodríguez MD [address] [place] [address] Health Maintenance Due Date Last Done Comments Hepatitis B series for 19+ ( 3 of 3 - 19+ 3-dose series) 07/21/2014 04/02/2014, 01/20/2014 COVID-19 vaccine series ( season) 2024 01/02/2024, 01/23/2023, 07/31/2022, Additional history exists Depression screening for age 12+ 02/06/2025 02/07/2024, 01/23/2023, 01/12/2022, Additional history exists Medicare Wellness for age 65+ 02/07/2025, 01/23/2023, 01/12/2022, Additional history exists BMI (ht and wt on same day) for age 18+ 02/10/2025 02/11/2024, 02/07/2024, 11/19/2023, Additional history exists Tetanus booster 04/07/2030 04/07/2020, 01/18/2010 Pneumococcal series for age 50+ Completed 6, 09/02/2013 Zoster (shingles) series for age 50+ Completed 11/21/2018, 09/14/2018, 09/09/2010 Tdap Completed 04/07/2020, 01/18/2010 Hepatitis C screening for ag e 18-79 Completed 07/12/2020 DEXA/DXA scan for age 65+ Completed 2022, 09/04/2016, 09/04/2014, Additional history exists Influenza Vaccine Completed 01/02/2024, , 01/07/2021, Additional history exists RSV vaccine for adults or Completed 02/28/2024 Procedures Procedure Name Priority Date/Time Associated Diagnosis Comments MR HIP LEFT WO Routine 07/25/2024 10:59 AM CDT Left groin pain XR MAMMO GERMAN BILAT SCREEN Routine 07/23/2024 9:36 AM CDT Encounter for screening mammogram for malignant neoplasm of breast PATH TISSUE EXAM Routine 07/03/2024 10:1 0 AM CDT Hair loss XR DXA BONE DENSITY 2 SITES AXIAL Routine 06/26/2022 10:58 AM CDT Osteopenia, unspecified location ANTI HCV Routine 07/12/2020 8:36 AM CDT Need for hepatitis C screening test from Last 3 Months or Most Recently Relevant to Health Maintenance Results * MR HIP LEFT WO CONTRAST (07/25/2024 10:59 AM CDT) Anatomical Region Laterality Modality HIPL Magnetic Resonan ce 07/28/2024 9:22 AM CDT Impressions 07/28/2024 9:22 AM CDT 1. Resolution of the subchondral sclerosis in the left femoral head with mild residual subchondral edema. Findings have significantly improved in the interval. 2. 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 3. Fraying and degeneration of the left labrum remains unchanged. 4. Hysterectomy. Dictated by Gonzalo Gomez MD @ 07/28/2024 9:22:44 AM (Electronically Signed) Narrative 07/28/2024 9:22 AM CDT For Patients: As a result of the Cures Act, medical imaging exams and procedure reports are released immediately into your electronic medical record. You may view this report before your referring provider. If you have questions, please contact your health care provider. EXAM: MRI OF THE LEFT HIP, WITHOUT CONTRAST CLINICAL INDICATION: Persistent left hip pain. COMPARISON PLAIN FILMS: 04/01/2024. COMPARISON CROSS-SECTIONAL IMAGING STUDIES: 05/19/2024 MRI. TECHNICAL: Axial, sagittal and coronal PD FS small field of view images of the hip. Coronal T1, PD FS and axial T1 images of the pelvis. FINDINGS: LEFT HIP: Labrum: Mild fraying and degeneration of the anterior and anterosuperior labrum. No labral tear or paralabral cyst. Articular Cartilage: The subchondral sclerosis in the left femoral head has resolved. There is a small area of mild subchondral edema which remains. Findings have significantly improved in the interval. Moderate to full-thickness chondral fissuring and thinning in the superior medial femoral head and acetabulum with subchondral edema in the acetabulum. Findings are stable. Joint Space: No effusion, synovitis or loose body. RIGHT HIP: No effusion or subchondral changes. OSSEOUS STRUCTURES: No fracture, marrow edema or marrow replacement process. No evidence for avascular necrosis. MUSCULOTENDINOUS STRUCTURES AND BURSAE: Gluteus Minimus and Medius: No tendon tear or tendinopathy. No muscle atrophy or edema. Bursae: No trochanteric or iliopsoas bursitis. Common Hamstrings: No tendon tear or tendinopathy. Other: Tendons and myotendinous junctions are intact. No muscle atrophy or edema. SOFT TISSUES: No subcutaneous edema, hematoma or fluid collection. OTHER JOINTS: Sacroiliac joints are maintained. Pubic symphysis is maintained. INTRAPELVIC CONTENTS: No mass, fluid collection or adenopathy. No inguinal hernia. Hysterectomy. NEUROVASCULAR STRUCTURES: No abnormality involving the visualized proximal femoral or proximal sciatic nerves. No aneurysmal dilation of the visualized distal aorta or iliac arterial circulation. Procedure Note Gonzalo Gomez MD - 07/28/2024 For Patients: As a result of the Cures Act, medical imagingexams and procedure reports are released immediately into your electronicmedical record. You may view this report before your referring provider.If you have questions, please contact your health care provider. EXAM: MRI OF THE LEFT HIP, WITHOUT CONTRAST CLINICAL INDICATION: Persistent left hip pain. COMPARISON PLAIN FILMS: 04/01/2024. COMPARISON CROSS-SECTIONAL IMAGING STUDIES: 05/19/2024 MRI. TECHNICAL: Axial, sagittal and coronal PD FS small field of view images of the hip.Coronal T1, PD FS and axial T1 images of the pelvis. FINDINGS: LEFT HIP: Labrum: Mild fraying and degeneration of the anterior and anterosuperiorlabrum. No labral tear or paralabral cyst. Articular Cartilage: The subchondral sclerosis in the left femoral headhas resolved. There is a small area of mild subchondral edema whichremains. Findings have significantly improved in the interval. Moderate tofull-thickness chondral fissuring and thinning in the superior medialfemoral head and acetabulum with subchondral edema in the acetabulum.Findings are stable. Joint Space: No effusion, synovitis or loose body. RIGHT HIP: No effusion or subchondral changes. OSSEOUS STRUCTURES: No fracture, marrow edema or marrow replacement process. No evidence foravascular necrosis. MUSCULOTENDINOUS STRUCTURES AND BURSAE: Gluteus Minimus and Medius: No tendon tear or tendinopathy. No muscleatrophy or edema. Bursae: No trochanteric or iliopsoas bursitis. Common Hamstrings: No tendon tear or tendinopathy. Other: Tendons and myotendinous junctions are intact. No muscle atrophy oredema. SOFT TISSUES: No subcutaneous edema, hematoma or fluid collection. OTHER JOINTS: Sacroiliac joints are maintained. Pubic symphysis is maintained. INTRAPELVIC CONTENTS: No mass, fluid collection or adenopathy. No inguinal hernia.Hysterectomy. NEUROVASCULAR STRUCTURES: No abnormality involving the visualized proximal femoral or proximalsciatic nerves. No aneurysmal dilation of the visualized distal aorta oriliac arterial circulation. IMPRESSION: 1. Resolution of the subchondral sclerosis in the left femoral head withmild residual subchondral edema. Findings have significantly improved inthe interval. 2. 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 3. Fraying and degeneration of the left labrum remains unchanged. 4. Hysterectomy. Dictated by Gonzalo Gomez MD @ 07/28/2024 9:22:44 AM (Electronically Signed) us Oscar Zavala MD MR Final Res ult * XR MAMMO GERMAN BILAT SCREEN (07/23/2024 9:36 AM CDT) Anatomical Region Laterality Modality BREASTS, Breast Left, Breast Right Bilateral Mammography Impressions 07/25/2024 7:54 AM CDT There is no radiographic evidence for malignancy. Recommend annual mammograms. MAMMOGRAM ASSESSMENT: ACR 1 Negative PATIENTS: You will also receive a letter with your examination results in an easy to read format. If you have questions about your results, please contact your referring provider. Narrative 07/25/2024 7:54 AM CDT For Patients: As a result of the Century Cures Act, medical imaging exams and procedure reports are released immediately into your electronic medical record. You may view this report before your referring provider. If you have questions, please contact your health care provider. XR MAMMO GERMAN BILAT SCREEN [[id number]] CLINICAL HISTORY: This is an asymptomatic 74 y.o. patient. INDICATION FOR EXAM: Mammogram Screening. TECHNIQUE: CC and MLO views were obtained. This study was evaluated with the assistance of Computer-Aided Detection. Breast Tomosynthesis was used in interpretation. COMPARISON FILM: Yes 07/23/23 [facility] 07/17/22 [facility] FINDINGS: The breasts are heterogeneously dense, which may obscure small masses. There are no dominant masses, suspicious micro calcifications or areas of architectural distortion. us Nataly Rodríguez MD MAMMO Final Result * PATH TISSUE EXAM (07/03/2024 10:10 AM CDT) Case Report Pathology Report Case: [id number] Authorizing Provider: Karishma Shoemaker DO Collected: 07/03/2024 1010 [facility] Re[facility]: 07/03/2024 15[facility] Pathologist: Dayami Fletcher MD Specimen: Skin, superior scalp 07/09/2024 2:32 PM CDT [facility] Final Diagnosis SKIN, SUPERIOR SCALP, BIOPSY: 1. Consistent with lichen planopilaris 2. Negative for malignancy 07/09/2024 2:32 PM CDT [facility] at 1432 CDT Comment Clinical photo is reviewed concurrently with histomorphology. 07/09/2024 2:32 PM CDT [facility] Clinical Information Hair loss of scalp with perifollicular erythema. Ddx: LPP vs other. 07/09/2024 2:32 PM CDT [facility] Gross Description A) Received in formalin, labeled with the patient's name and superior scalp, is a 0.4 cm in diameter punch biopsy, excised to a depth of 0.4 cm. The skin surfaces yousif-white, rubbery and hairbearing. The specimen is inked blue, sectioned horizontally and entirely submitted in one cassette. DS 07/07/2024 07/09/2024 2:32 PM CDT [facility] Microscopic Description The final diagnosis is based on microscopic examination of appropriate sections of all specimens. Sections show a band-like folliculocentric lymphohistiocytic infiltrate. Basal cell hydropic change, cytoid bodies are seen. The presence of blue ink is confirmed on tissue sections. 07/09/2024 2:32 PM CDT [facility] Additional Information Interpreted at [facility] Laboratory - [address], [place] [address] 07/09/2024 2:32 PM CDT [facility] Other SPECIMEN FROM SKIN / Unknown Non-Blood / Unknown 07/03/2024 10:10 AM CDT 07/03/2024 3:31 PM CDT us Karishma Morales Navid DO PATHOLOGY/CYTOLOGY Duyen marsha Result [facility] [address] [place] [address], * (ABNORMAL) XR DXA BONE DENSITY 2 [...] to assess therapeutic efficacy. Odette Younger PA-C [facility] 06/26/2022 Narrative 06/26/2022 1:34 PM CDT For Patients: Results are automatically released to your [facility] ([facility]) account once available, in compliance with federal regulations. This means that you may see your results before your provider has had a chance to review them. Please allow 2-3 business days for your provider to comment on the results. XR DXA Bone Mineral Density (BMD) EXAM LOCATION: [address] [address] PATIENT NAME: Shefali Sanders DATE OF : 1950 EXAM DATE: 06/26/2022 REQUESTING PROVIDER: Nataly Rodríguez MD GENDER AT : female HEIGHT: 5' 1.5 (01/12/2022) WEIGHT: 154 lb 9.6 oz (03/13/2022) MENOPAUSAL STATUS: Postmenopausal [...] two scanners are made by the same business employment specialist. PROCEDURE: Dual-energy x-ray absorptiometry performed with routine technique. Reporting is completed in the form of a T-score. The T-score represents the standard deviation from peak bone mass based on young healthy adult. A Z-score is used for diagnosis in premenopausal women, and for men under the age of 50. FINDINGS: RESULT LUMBAR SPINE L1 - L3 BMD: 0.890 g/cm2 T-Score: - 2.4 Z-Score: - 0.8 Change from prior in 2017: Decrease 5.8%. RESULTS FEMUR Left femoral neck BMD: 0.940 g/cm2 T-Score: - 0.7 Z-Score: + 1.1 Change from prior in 2017: Decrease 1.7%. Right femoral neck BMD: 0.875 g/cm2 T-Score: - 1.2 Z-Score: + 0.6 Change from prior in 2017: Decrease 5.7%. Left hip BMD: 0.946 g/cm2 T-Score: - 0.5 Z-Score: + 1.1 Change from prior in 2017: Decrease 2.2%. Right hip BMD: 0.881 g/cm2 T-Score: - 1.0 Z-Score: + 0.6 Change from prior in 2017: Decrease 5.6%. WHO criteria: Normal: T-score at or above -1 SD Osteopenia: T-score between -1.1 and -2.4 SD Osteoporosis: T-score at or below -2.5 SD FRAX RISK CALCULATION (USED FOR OSTEOPENIA ONLY): 10-year probability of major osteoporotic fracture: 15.3%. 10-year probability of hip fracture: 5.8%. us Nataly Rodríguez MD DEXA Final Result * ANTI HCV (07/12/2020 8:36 AM CDT) Pathologist [facility] HEPATITIS C ANTIBODY Non-React malvin Non-React malvin 07/12/2020 4:28 PM CDT [facility] Comment:Antibodies to HCV no t detected; does not exclude the possibility of exposure to HCV. Blood BLOOD SPECIMEN / Unknown Venipuncture / Unknown 07/12/2020 8:36 AM CDT 07/12/2020 8:36 AM CDT us Nataly Rodríguez MD SEND OUTS Final Result [facility] [address] [place] [address], [place] from Last 3 Months or Most Recently Relevant to Health Maintenance [facility] [address] [facility] [place] [id number] MEDICARE PART B [place] ONLY [place] ONLY MEDICARE PART A HB ONLY [place] BLUE MR PB ONLY [address] [place] [id number] [address] [place] [id number] Advance Directives Documents on File Type Date Recorded Patient [employer] Maintainer Expl anation Healthcare Directive 02/06/2018 8:13 AM * Full Code (Latest Code Status on File) Date Activated Date Inactivated Comments 01/31/2018 10:18 AM 02/02/2018 3:15 PM Care Teams Java Designer Relationship Specialty Start Date End Date Nataly Rodríguez MD [address] [place] [address] PCP - General 07/14/05
--- OUTSIDE RECORDS SUMMARY | 2024-09-14 20:36 | XMS_ITS | Encounter Summary ---
Author Organization [facility] Address [address], [place] [address] Care Team Providers Care Java Engineer Name Role Phone Unavailable Primary Care Provider Unavailabl e Reason for Visit * Reason Comments Patch Testing LVM about needing ac cess to what was tested for during patch testing due to a reaction after a procedureCalled back and shared the number for medical records Encounter Details Date Type Department Care Team (Late st Contact Info) Description 08/29/2024 Telephone Contact [facility] [address] [place] [address] Unassigned, Provider [address] [place] [address] Patch Testing (LVM about needing access to what was tested for during patch testing due to a reaction after a procedure/Called back and shared the number for medical records ) Social History Tobacco Use Types Packs/Day Years Used Date Smoking Tobacco: Never Assessed Comments Unknown Sex and Gender Information Value Date Recorded Sex Assigned at Not on file Legal Sex Female 6:12 AM NEGATIVE ASSEMBLER Gender Identity Female 05/22/2024 7:47 AM NEGATIVE ASSEMBLER Sexual Orientation Not on file documented as of this encounter Plan of Treatment Not on file documented as of this encounter Visit Diagnoses Not on filedocumented in this encounter
--- OUTSIDE RECORDS SUMMARY | 2024-09-14 20:36 | XMS_ITS | Clinical Summary ---
Author Organization [facility] Address [address] [place] [address] Care Team Providers Care Rag Shredder Name Role Phone Unavailable Primary Care Provider Unavailabl e Source Comments You are receiving this document as you are listed as the primary care provider,follow-up provider, or the patient has been referred to you for consultation.This is in compliance with the Medicare and[facility] EHR Incentive Program,which states Providers who transition their patient to another setting of careor provider of care or refers their patient to another provider of care shouldprovide summary care record for each transition of care or referral. [employer] Allergies Active Allergy Reactions Criticality Noted Date Comments Cyanoacrylate Rash High 05/26/2024 Avoid dermabond, liquiband Other Rash Medium 05/26/2024 Patch Testing 05/26/2024: Very Strong (3+) or Strong (2+) reactions: Butyl cyanoacrylate Mild (1+) reactions: Octyl cyanoacrylate (liquiband octyl) Balsam of [place] Fragrance mix I Borderline/questionable reactions: Povidone iodine Povidone Iodine Rash Low 05/26/2024 Contact allergy only; contrast/oral intake safe Medications No known medications Active Problems Problem Noted Date Diagnosed Date Allergic contact dermatitis due to other agents 05/26/2024 Overview (05/26/2024): Skin[employer] SFM Code: [id number] Encounters Date Type Department Care Team Description 08/29/2024 Telephone Contact [facility] [address] [place] [address] Unassigned, Provider Patch Testing (LVM about needing access to what was tested for during patch testing due to a reaction after a procedure/Called back and shared the number for medical records ) from Last 3 Months Social History Tobacco Use Types Packs/Day Years Used Date Smoking Tobacco: Never Assessed Comments Unknown Sex and Gender Information Value Date Recorded Sex Assigned at Not on file Legal 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 Gender Identity Female 05/22/2024 7:47 AM 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 Sexual Orientation Not on file Plan of Treatment Health Maintenance Due Date Last Done Comments Hep C Screening (Preventive Services) 1950 Medicare Annual Wellness Visit 1950 RSV Vaccine (1 - 1-dose 75+ series) 2023 COVID-19 Vaccine ( season) 2024 01/02/2024, 01/23/2023, 07/31/2022, Additional history exists DTaP/Tdap/Td Vaccine (3 - Tdap) 04/07/2030 04/07/2020, 01/18/2010 HepA Vaccine Aged Out 08/10/2011, 01/18/2010 No lo nger eligible based on patient's age to complete this topic Pneumococcal Vaccine 50+ Yrs Completed 08/10/2015, 09/02/2013 Zoster/Shingles Vaccine Completed 11/22/19 19, 09/14/2018, 09/09/2010 Dexa Completed 06/26/2022, 0405/2022, 09/04/2016, Additional history exists Influenza Vaccine Completed 01/02/2024, , 12/30/2021, Additional history exists HepB Vaccine Aged Out No longer eligi ble based on patient's age to complete this topic Hib Vaccine Aged Out No longer eligi ble based on patient's age to complete this topic MCV4 Vaccine Aged Out No longer eligi ble based on patient's age to complete this topic Meningococcal B Vaccine Aged Out No l onger eligible based on patient's age to complete this topic Insurance [address] [place], [place] [id number] MEDICARE MANAGED CARE [facility]
--- NOTE | 2024-09-14 20:47 | CRLHL7_ITS ---
For Patients: As a result of the Century Cures Act, medical imaging exams and procedure reports are released immediately into your electronic medical record. You may view this report before your referring provider. If you have questions, please contact your health care provider. INDICATION: Confusion TECHNIQUE: Noncontrast axial CT of the head is submitted. COMPARISON: No comparisons. FINDINGS: Mild cerebral atrophy. The ventricles, sulci and gyri are of normal size, shape and contour for age and degree of atrophy. Midline structures are centrally located. No convincing evidence of suspicious intra- or extra-axial fluid collections. [id number]-[id number] patchy regions of decreased attenuation within the periventricular and subcortical white matter of both cerebral hemispheres. IMPRESSION: 1. No radiographic evidence of acute intracranial abnormalities. 2. Mild cerebral atrophy. 3. [id number] supratentorial white matter changes that are non-specific, but statistically most likely related to chronic small vessel ischemic disease. Please note that all CT scans at this facility use dose modulation, iterative reconstruction, and/or weight-based dosing when appropriate to reduce radiation dose to as low as reasonably achievable. Dictated by Dylan Bowman MD @ 09/14/2024 9:48:22 PM (Electronically Signed)
--- NOTE | 2024-09-14 20:49 | ED_ITS ---
HPI - General Adult General Date Seen: 09/14/24 <Yvan Lawrence - Last Filed: 09/14/24 23:53> Chief complaint: Dizziness/Vertigo <Yvan Lawrence DO - Last Filed: 09/14/24 23:53> Stated complaint: Confusion <Yvan Lawrence DO - Last Filed: 09/14/24 23:53> Time Seen by Provider: 09/14/24 20:35 <Yvan Lawrence DO - Last Filed: 09/14/24 23:53> Source: patient and EMS <Yvan Erica Lawrence - Last Filed: 09/14/24 23:53> Mode of arrival: EMS <Yvan Lawrence - Last Filed: 09/14/24 23:53> Limitations: no limitations <Yvan Lawrence DO - Last Filed: 09/14/24 23:53> History of Present Illness HPI narrative: Patient is a 74-year-old female presenting to the emergency department for some mild confusion, headache, nausea, dizziness. She the [email or web address] game today and was feeling fine. She was able to drive home. Within the past hour she knows she has some difficulty understanding subtitle is a no-show they are watching. That made her concerned. She also states she had an ocular migraine today. She usually only gets 1 week but has had 3 in the past week. After that she developed a headache which is unusual for her. Describes headache as relatively mild. States she does feels woozy. When asked if she feels like the room is spinning she says mom possibly a little bit. Denies feeling like she is going to pass out. Denies lightheadedness. She is able to answer all questions appropriately. Denies chest pain, shortness of breath, abdominal pain, weakness, numbness. Does have some mild nausea right now. <Yvan Lawrence DO - Last Filed: 09/14/24 23:53> Related Data Home medications: Home Medications ?Medication ?Instructions ?Recorded ?Confirmed amoxicillin 250 mg capsule 250 mg PO DAILY PRN chronic 01/19/22 09/14/24 bladder infections omeprazole 20 mg capsule,delayed 20 mg PO DAILY 09/14/24 release rosuvastatin 20 mg tablet 20 mg PO HS 06/02/23 5 calcium carbonate (Tums) 300 mg PO DAILY 11/06/23 cholecalciferol (vitamin D3) 50 50 mcg PO DAILY 09/14/24 mcg (2,000 unit) capsule (Vitamin D3) clobetasol 0.05 % scalp solution 1 applic topical QHS PRN 07/30/24 09/14/24 Previous Rx's ?Medication ?Instructions ?Recorded acetaminophen 500 mg capsule 500 - 1,000 mg (1 - 2 x 5 00 mg) PO 11/27/23 Q6H PRN pain #100 caps triamcinolone acetonide 0.1 % 1 applic topical BID #30 grams 09/03/24 topical cream <Yvan Lawrence DO - Last Filed: 09/14/24 23:53> Allergies/adverse reactions: Allergies Allergy/AdvReac Type Severity Reaction Status Date / Time cefpodoxime Allergy Hives Verified 09/14/24 20:41 ciprofloxacin Allergy Verified 09/14/24 20:41 Cyanoacrylates Allergy Hives Verified 09/14/24 20:41 metronidazole Allergy Hives Verified 09/14/24 20:41 nitrofurantoin Allergy Verified 09/14/24 20:41 povidone-iodine Allergy Hives Verified 09/14/24 20:41 scopolamine Allergy Verified 09/14/24 20:41 Sulfa (Sulfonamide Allergy Verified 09/14/24 20:41 Antibiotics) valdecoxib Allergy Verified 09/14/24 20:41 dermabond Allergy Severe Hives Uncoded 09/10/24 09:02 fragrance mix I or II Allergy Hives Uncoded 09/10/24 09:02 Myroxylon Pereirae/Balsam of Allergy Hives Uncoded 09/10/24 09:02 [facility] <Yvan Lawrence DO - Last Filed: 09/14/24 23:53> Review of Systems Status of ROS: Reports: 10 or more systems reviewed and unremarkable except as noted in History and below <Yvan Lawrence DO - Last Filed: 09/14/24 23:53> [facility] Medical History: Medical History 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) Temporomandibular joint disorders, unspecified (06/22/06) ?M26.609 - Unspecified temporomandibular joint disorder, unspecified side (ICD-10) Sigmoid diverticulitis (02/01/18) ?K57.32 - Diverticulitis of large intestine without perforation or abscess without bleeding (ICD-10) Personal history of urinary (tract) infection (06/22/06) ?Z87.440 - Personal history of urinary (tract) infections (ICD-10) Osteoporosis (10/01/12) ?M81.0 - Age-related osteoporosis without current pathological fracture (ICD- 10) Gastroesophageal reflux disease without esophagitis (09/05/16) ?K21.9 - Gastro-esophageal reflux disease without esophagitis (ICD-10) Perforated diverticulum ?K57.80 - Diverticulitis of intestine, part unspecified, with perforation and abscess without bleeding (ICD-10) Acute diverticulitis of intestine ?K57.92 - Diverticulitis of intestine, part unspecified, without perforation or abscess without bleeding (ICD-10) Ganglion cyst ?M67.40 - Ganglion, unspecified site (ICD-10) Internal impingement of left shoulder ?M75.42 - Impingement syndrome of left shoulder (ICD-10) <Yvan Lawrence DO - Last Filed: 09/14/24 23:53> Surgical History: Surgical History History of arthroscopy of right knee (08/26/24) ?Z98.890 - Other specified postprocedural states (ICD-10) History of cataract extraction (2012) ?Z98.49 - Cataract extraction status, unspecified eye (ICD-10) History of esophagogastroduodenoscopy (EGD) ?Z98.890 - Other specified postprocedural states (ICD-10) H/O dilation and curettage ?Z98.890 - Other specified postprocedural states (ICD-10) History of surgical removal of ganglion cyst ?Z98.890 - Other specified postprocedural states (ICD-10) History of appendectomy ?Z90.49 - Acquired absence of other specified parts of digestive tract (ICD- 10) Status post right knee replacement (11/27/23) ?Z96.651 - Presence of right artificial knee joint (ICD-10) History of partial colectomy ?Z90.49 - Acquired absence of other specified parts of digestive tract (ICD- 10) H/O: hysterectomy ?Z90.710 - Acquired absence of both cervix and uterus (ICD-10) <Yvan Lawrence DO - Last Filed: 09/14/24 23:53> Social History: Social History Narrative: -Pat celebrating 53 years of marriage What is your current living situation?: I presently have a place to live In the past 12 months, utilities in danger of being shut off: no In past 12 months, lack of transportation kept you from medical appts, meetings, work, or getting things needed for daily living: no In the past 12 mos, have been you worried that your food would run out before you had money to buy more?: never true In the past 12 mos, the food you bought just didn't last and you didn't have money to buy more?: never true Highest level of school completed/degree received: Bachelor's degree Smoking Status: Never smoker Do you use any of these nicotine containing products: None Second hand tobacco smoke exposure: No How often do you have a drink containing alcohol: monthly or less How many standard drinks containing alcohol do you have on a typical day: 1 or 2 How often do you have six or more drinks on one occasion: Never AUDIT-C Alcohol total score: 1 Non-prescribed substance use: denies use Caffeine: No How often does anyone, including family, friends and others, physically hurt you : never How often does anyone, including family, friends and others, insult or talk down to you: never How often does anyone, including family, friends and others, threaten you with harm: never How often does anyone, including family, friends and others, scream or curse at you: never Are you using contraception or practicing any form of control: No service: No <Yvan Lawrence DO - Last Filed: 09/14/24 23:53> Exam Narrative: Exam Narrative: Const: Well-nourished, Well-developed, in mild distress Eyes: PERRL, no conjunctival injection, and symmetrical lids HENT: Atraumatic external nose and ears. Moist mucous membranes. Neck: Symmetric, trachea midline, No thyromegaly. CVS: RRR, No murmurs or gallops. Peripheral pulses 2+ and equal in all extremities RESP: Unlabored respiratory effort. Clear to auscultation bilaterally. GI: Nontender/Nondistended, No rebound or guarding. MSK:Extremities w/o deformity, Normal Active ROM Skin: Warm, Dry. No rashes or lesions. Neuro: Normal Muscle tone, No focal neurological deficits. Psych: Awake, Alert, & Oriented x3. Appropriate mood and affect. <Yvan Lawrence, DO - Last Filed: 09/14/24 23:53> Const: Vital Signs, click to edit/add: Vital Signs - 24 hr 09/14/24 20:34 09/14/24 20:45 09/14/24 21:00 Temperature 97.1 F L Pulse Rate 79 80 Pulse Rate [Pulse Oximeter] 79 Pulse Rate [orthos tatic lying] Pulse Rate [orthos tatic sitting] Pulse Rate [orthos tatic standing] Respiratory Rate 16 Blood Pressure Blood Pressure [Ri ght Upper Arm] 142/85 H Blood Pressure [or thostatic lying] Blood Pressure [or thostatic sitting] Blood Pressure [or thostatic standing ] Pulse Oximetry 98 97 93 Oxygen Delivery Me thod Room Air 09/14/24 21:15 09/14/24 21:16 09/14/24 21:30 Temperature Pulse Rate 78 77 81 Pulse Rate [Pulse Oximeter] Pulse Rate [orthos tatic lying] Pulse Rate [orthos tatic sitting] Pulse Rate [orthos tatic standing] Respiratory Rate 16 18 Blood Pressure 140/72 H Blood Pressure [Ri ght Upper Arm] Blood Pressure [or thostatic lying] Blood Pressure [or thostatic sitting] Blood Pressure [or thostatic standing ] Pulse Oximetry 96 96 99 Oxygen Delivery Me thod Room Air 09/14/24 21:45 09/14/24 21:56 09/14/24 21:57 Temperature Pulse Rate 74 73 Pulse Rate [Pulse Oximeter] Pulse Rate [orthos tatic lying] 74 Pulse Rate [orthos tatic sitting] 72 Pulse Rate [orthos tatic standing] 73 Respiratory Rate 19 20 Blood Pressure 124/69 Blood Pressure [Ri ght Upper Arm] Blood Pressure [or thostatic lying] 124/69 Blood Pressure [or thostatic sitting] 139/74 Blood Pressure [or thostatic standing ] 132/102 H Pulse Oximetry 98 98 Oxygen Delivery Ks thod 09/14/24 21:59 09/14/24 22:00 09/14/24 22:01 Temperature Pulse Rate 71 76 77 Pulse Rate [Pulse Oximeter] Pulse Rate [orthos tatic lying] Pulse Rate [orthos tatic sitting] Pulse Rate [orthos tatic standing] Respiratory Rate 22 22 Blood Pressure 139/74 132/102 H Blood Pressure [Ri ght Upper Arm] Blood Pressure [or thostatic lying] Blood Pressure [or thostatic sitting] Blood Pressure [or thostatic standing ] Pulse Oximetry 96 95 93 Oxygen Delivery Ks thod 09/14/24 22:15 09/14/24 22:30 09/14/24 22:45 Temperature Pulse Rate 75 73 74 Pulse Rate [Pulse Oximeter] Pulse Rate [orthos tatic lying] Pulse Rate [orthos tatic sitting] Pulse Rate [orthos tatic standing] Respiratory Rate 18 10 L 21 Blood Pressure Blood Pressure [Ri ght Upper Arm] Blood Pressure [or thostatic lying] Blood Pressure [or thostatic sitting] Blood Pressure [or thostatic standing ] Pulse Oximetry 98 97 [facility] 23:00 09/14/24 23:22 09/14/24 23:30 Temperature Pulse Rate 75 73 73 Pulse Rate [Pulse Oximeter] Pulse Rate [orthos tatic lying] Pulse Rate [orthos tatic sitting] Pulse Rate [orthos tatic standing] Respiratory Rate 19 30 H 18 Blood Pressure Blood Pressure [Ri ght Upper Arm] Blood Pressure [or thostatic lying] Blood Pressure [or thostatic sitting] Blood Pressure [or thostatic standing ] Pulse Oximetry 95 98 93 Oxygen Delivery Me thod 09/14/24 23:45 09/15/24 00:00 09/15/24 00:15 Temperature Pulse Rate 72 70 79 Pulse Rate [Pulse Oximeter] Pulse Rate [orthos tatic lying] Pulse Rate [orthos tatic sitting] Pulse Rate [orthos tatic standing] Respiratory Rate 17 19 21 Blood Pressure Blood Pressure [Ri ght Upper Arm] Blood Pressure [or thostatic lying] Blood Pressure [or thostatic sitting] Blood Pressure [or thostatic standing ] Pulse Oximetry 92 93 96 Oxygen Delivery Me thod 09/15/24 00:27 09/15/24 00:30 09/15/24 01:27 Temperature Pulse Rate 71 74 72 Pulse Rate [Pulse Oximeter] Pulse Rate [orthos tatic lying] Pulse Rate [orthos tatic sitting] Pulse Rate [orthos tatic standing] Respiratory Rate 18 16 12 Blood Pressure 127/73 125/76 Blood Pressure [Ri ght Upper Arm] Blood Pressure [or thostatic lying] Blood Pressure [or thostatic sitting] Blood Pressure [or thostatic standing ] Pulse Oximetry 97 94 96 Oxygen Delivery Me thod 09/15/24 02:03 09/15/24 03:02 09/15/24 04:02 Temperature 98.2 F 98.2 F Pulse Rate 67 72 72 Pulse Rate [Pulse Oximeter] Pulse Rate [orthos tatic lying] Pulse Rate [orthos tatic sitting] Pulse Rate [orthos tatic standing] Respiratory Rate 16 12 12 Blood Pressure 121/71 112/65 118/65 Blood Pressure [Ri ght Upper Arm] Blood Pressure [or thostatic lying] Blood Pressure [or thostatic sitting] Blood Pressure [or thostatic standing ] Pulse Oximetry 95 95 95 Oxygen Delivery Me thod 09/15/24 06:05 Temperature 98.2 F Pulse Rate 65 Pulse Rate [Pulse Oximeter] Pulse Rate [orthos tatic lying] Pulse Rate [orthos tatic sitting] Pulse Rate [orthos tatic standing] Respiratory Rate 18 Blood Pressure 117/88 Blood Pressure [Ri ght Upper Arm] Blood Pressure [or thostatic lying] Blood Pressure [or thostatic sitting] Blood Pressure [or thostatic standing ] Pulse Oximetry 96 Oxygen Delivery Me thod <Yvan Lawrence, DO - Last Filed: 09/14/24 23:53> Vital Signs, click to edit/add: Vital Signs - 24 hr 09/14/24 20:34 09/14/24 20:45 09/14/24 21:00 Temperature 97.1 F L Pulse Rate 79 80 Pulse Rate [Pulse Oximeter] 79 Pulse Rate [orthos tatic lying] Pulse Rate [orthos tatic sitting] Pulse Rate [orthos tatic standing] Respiratory Rate 16 Blood Pressure Blood Pressure [Ri ght Upper Arm] 142/85 H Blood Pressure [or thostatic lying] Blood Pressure [or thostatic sitting] Blood Pressure [or thostatic standing ] Pulse Oximetry 98 97 93 Oxygen Delivery Me thod Room Air 09/14/24 21:15 09/14/24 21:16 09/14/24 21:30 Temperature Pulse Rate 78 77 81 Pulse Rate [Pulse Oximeter] Pulse Rate [orthos tatic lying] Pulse Rate [orthos tatic sitting] Pulse Rate [orthos tatic standing] Respiratory Rate 16 18 Blood Pressure 140/72 H Blood Pressure [Ri ght Upper Arm] Blood Pressure [or thostatic lying] Blood Pressure [or thostatic sitting] Blood Pressure [or thostatic standing ] Pulse Oximetry 96 96 99 Oxygen Delivery Me thod Room Air 09/14/24 21:45 09/14/24 21:56 09/14/24 21:57 Temperature Pulse Rate 74 73 Pulse Rate [Pulse Oximeter] Pulse Rate [orthos tatic lying] 74 Pulse Rate [orthos tatic sitting] 72 Pulse Rate [orthos tatic standing] 73 Respiratory Rate 19 20 Blood Pressure 124/69 Blood Pressure [Ri ght Upper Arm] Blood Pressure [or thostatic lying] 124/69 Blood Pressure [or thostatic sitting] 139/74 Blood Pressure [or thostatic standing ] 132/102 H Pulse Oximetry 98 98 Oxygen Delivery Me thod 09/14/24 21:59 09/14/24 22:00 09/14/24 22:01 Temperature Pulse Rate 71 76 77 Pulse Rate [Pulse Oximeter] Pulse Rate [orthos tatic lying] Pulse Rate [orthos tatic sitting] Pulse Rate [orthos tatic standing] Respiratory Rate 22 22 Blood Pressure 139/74 132/102 H Blood Pressure [Ri ght Upper Arm] Blood Pressure [or thostatic lying] Blood Pressure [or thostatic sitting] Blood Pressure [or thostatic standing ] Pulse Oximetry 96 95 93 Oxygen Delivery Me thod 09/14/24 22:15 09/14/24 22:30 09/14/24 22:45 Temperature Pulse Rate 75 73 74 Pulse Rate [Pulse Oximeter] Pulse Rate [orthos tatic lying] Pulse Rate [orthos tatic sitting] Pulse Rate [orthos tatic standing] Respiratory Rate 18 10 L 21 Blood Pressure Blood Pressure [Ri ght Upper Arm] Blood Pressure [or thostatic lying] Blood Pressure [or thostatic sitting] Blood Pressure [or thostatic standing ] Pulse Oximetry 98 97 96 Oxygen Delivery Me thod 09/14/24 23:00 09/14/24 23:22 09/14/24 23:30 Temperature Pulse Rate 75 73 73 Pulse Rate [Pulse Oximeter] Pulse Rate [orthos tatic lying] Pulse Rate [orthos tatic sitting] Pulse Rate [orthos tatic standing] Respiratory Rate 19 30 H 18 Blood Pressure Blood Pressure [Ri ght Upper Arm] Blood Pressure [or thostatic lying] Blood Pressure [or thostatic sitting] Blood Pressure [or thostatic standing ] Pulse Oximetry 95 98 93 Oxygen Delivery Me thod 09/14/24 23:45 09/15/24 00:00 09/15/24 00:15 Temperature Pulse Rate 72 70 79 Pulse Rate [Pulse Oximeter] Pulse Rate [orthos tatic lying] Pulse Rate [orthos tatic sitting] Pulse Rate [orthos tatic standing] Respiratory Rate 17 19 21 Blood Pressure Blood Pressure [Ri ght Upper Arm] Blood Pressure [or thostatic lying] Blood Pressure [or thostatic sitting] Blood Pressure [or thostatic standing ] Pulse Oximetry 92 93 96 Oxygen Delivery Me thod 09/15/24 00:27 09/15/24 00:30 09/15/24 01:27 Temperature Pulse Rate 71 74 72 Pulse Rate [Pulse Oximeter] Pulse Rate [orthos tatic lying] Pulse Rate [orthos tatic sitting] Pulse Rate [orthos tatic standing] Respiratory Rate 18 16 12 Blood Pressure 127/73 125/76 Blood Pressure [Ri ght Upper Arm] Blood Pressure [or thostatic lying] Blood Pressure [or thostatic sitting] Blood Pressure [or thostatic standing ] Pulse Oximetry 97 94 96 Oxygen Delivery Me thod 09/15/24 02:03 09/15/24 03:02 09/15/24 04:02 Temperature 98.2 F 98.2 F Pulse Rate 67 72 72 Pulse Rate [Pulse Oximeter] Pulse Rate [orthos tatic lying] Pulse Rate [orthos tatic sitting] Pulse Rate [orthos tatic standing] Respiratory Rate 16 12 12 Blood Pressure 121/71 112/65 118/65 Blood Pressure [Ri ght Upper Arm] Blood Pressure [or thostatic lying] Blood Pressure [or thostatic sitting] Blood Pressure [or thostatic standing ] Pulse Oximetry 95 95 95 Oxygen Delivery Me thod 09/15/24 06:05 Temperature 98.2 F Pulse Rate 65 Pulse Rate [Pulse Oximeter] Pulse Rate [orthos tatic lying] Pulse Rate [orthos tatic sitting] Pulse Rate [orthos tatic standing] Respiratory Rate 18 Blood Pressure 117/88 Blood Pressure [Ri ght Upper Arm] Blood Pressure [or thostatic lying] Blood Pressure [or thostatic sitting] Blood Pressure [or thostatic standing ] Pulse Oximetry 96 Oxygen Delivery Me thod <Josefa Benjamin MD - Last Filed: 09/15/24 06:51> Course Reevaluation(s) Time of Reevaluation #1: 06:47 <Josefa Benjamin MD - Last Filed: 09/15/24 06:51> Reevaluation #1: Dr. Benjamin- I assumed care for patient overnight. There were no hospital beds available at our facility or for nearby transfer. Because of this, I discussed options for management. Elected to slowly replace normal saline overnight. Patient reports that she is feeling better. Repeat sodium level is 130 this morning. I had a thorough discussion with patient found that she has newly started taking doxycycline for the last 2 months. This is not 1 of the most typical causes of hyponatremia but it actually could be 1. Her omeprazole is another consideration but less likely. Counseled patient that this condition tends to only happen in those with genetic vulnerability to this problem. Patient reports that she has good primary care contact and can have her levels checked in a couple of days. Stressed the importance of doing so. Will have patient discontinue doxycycline for now, follow her typical diet. Alarm symptoms reviewed that would warrant ED presentation. She will have her lab levels rechecked. Will not start any salt tablets for now. Alarm symptoms reviewed that would warrant ED presentation. She verbalizes understanding and agreement. <Josefa Benjamin MD - Last Filed: 09/15/24 06:51> Vital Signs Vital signs: Initial Vital Signs Temperature 97.1 F L 09/14/24 20:34 Temperature Source Temporal Artery Scan 09/14/24 20:34 Pulse Rate 79 09/14/24 20:34 Respiratory Rate 16 09/14/24 20:34 Blood Pressure 142/85 H 09/14/24 20:34 Blood Pressure Mean 104 09/14/24 20:34 Pulse Oximetry 98 09/14/24 20:34 Oxygen Delivery Method Room Air 09/14/24 20:34 Vital Signs Temperature 97.1 F L 09/14/24 20:34 Pulse Rate 79 09/14/24 20:34 Respiratory Rate 16 09/14/24 20:34 Blood Pressure 142/85 H 09/14/24 20:34 Pulse Oximetry 98 09/14/24 20:34 Oxygen Delivery Method Room Air 09/14/24 20:34 Temperature 98.2 F 09/15/24 06:05 Pulse Rate 65 09/15/24 06:05 Respiratory Rate 18 09/15/24 06:05 Blood Pressure 117/88 09/15/24 06:05 Pulse Oximetry 96 09/15/24 06:05 Oxygen Delivery Method Room Air 09/14/24 21:15 <Yvan Lawrence DO - Last Filed: 09/14/24 23:53> Initial Vital Signs Temperature 97.1 F L 09/14/24 20:34 Temperature Source Temporal Artery Scan 09/14/24 20:34 Pulse Rate 79 09/14/24 20:34 Respiratory Rate 16 09/14/24 20:34 Blood Pressure 142/85 H 09/14/24 20:34 Blood Pressure Mean 104 09/14/24 20:34 Pulse Oximetry 98 09/14/24 20:34 Oxygen Delivery Method Room Air 09/14/24 20:34 Vital Signs Temperature 97.1 F L 09/14/24 20:34 Pulse Rate 79 09/14/24 20:34 Respiratory Rate 16 09/14/24 20:34 Blood Pressure 142/85 H 09/14/24 20:34 Pulse Oximetry 98 09/14/24 20:34 Oxygen Delivery Method Room Air 09/14/24 20:34 Temperature 98.2 F 09/15/24 06:05 Pulse Rate 65 09/15/24 06:05 Respiratory Rate 18 09/15/24 06:05 Blood Pressure 117/88 09/15/24 06:05 Pulse Oximetry 96 09/15/24 06:05 Oxygen Delivery Method Room Air 09/14/24 21:15 <Josefa Benjamin MD - Last Filed: 09/15/24 06:51> Medications Administered Medications: Generic Name Dose Route Start Last Admin Trade Name Freq PRN Reason Stop Dose Admin Sodium Chloride 1,000 mls @ 200 mls/hr 09/15/24 00:16 09/15/24 06:46 0.9 % Sodium Chloride 1000 Ml IV Infused .Q5H FLAQUITA Infusion Discontinued Medications Generic Name Dose Route Start Last Admin Trade Name Ronaldq PRN Reason Stop Dose Admin Calcium Carbonate 500 mg 09/14/24 23:57 09/15/24 00:24 Calcium Carbonate 500 Mg Chew PO 09/14/24 23:58 500 mg ONCE ONE Administration Diphenhydramine HCl 25 mg 09/14/24 20:47 09/14/24 21:22 Diphenhydramine 50 Mg/Ml Inj IVP 09/14/24 20:48 25 mg ONCE ONE Administration Lactated Ringer's 1,000 mls @ 1,000 mls/hr 09/14/24 20:47 09/14/24 21:23 Lactated Ringers 1000 Ml IV 09/14/24 21:46 Not Given .Q1H ONE Sodium Chloride 1,000 mls @ 1,000 mls/hr 09/14/24 21:15 09/14/24 21:53 0.9 % Sodium Chloride 1000 Ml IV 09/14/24 22:14 Infused .Q1H FLAQUITA Infusion Sodium Chloride 1,000 mls @ 125 mls/hr 09/14/24 23:47 09/15/24 00:27 0.9 % Sodium Chloride 1000 Ml IV 0 mls/hr .Q8H FLAQUITA Infusion Metoclopramide HCl 10 mg 09/14/24 20:47 09/14/24 21:22 Metoclopramide Hcl 5 Mg/Ml Inj IVP 09/14/24 20:48 10 mg ONCE ONE Administration <Yvan Lawrence, DO - Last Filed: 09/14/24 23:53> Generic Name Dose Route Start Last Admin Trade Name Ronaldq PRN Reason Stop Dose Admin Sodium Chloride 1,000 mls @ 200 mls/hr 09/15/24 00:16 09/15/24 06:46 0.9 % Sodium Chloride 1000 Ml IV Infused .Q5H FLAQUITA Infusion Discontinued Medications Generic Name Dose Route Start Last Admin Trade Name Ronaldq PRN Reason Stop Dose Admin Calcium Carbonate 500 mg 09/14/24 23:57 09/15/24 00:24 Calcium Carbonate 500 Mg Chew PO 09/14/24 23:58 500 mg ONCE ONE Administration Diphenhydramine HCl 25 mg 09/14/24 20:47 09/14/24 21:22 Diphenhydramine 50 Mg/Ml Inj IVP 09/14/24 20:48 25 mg ONCE ONE Administration Lactated Ringer's 1,000 mls @ 1,000 mls/hr 09/14/24 20:47 09/14/24 21:23 Lactated Ringers 1000 Ml IV 09/14/24 21:46 Not Given .Q1H ONE Sodium Chloride 1,000 mls @ 1,000 mls/hr 09/14/24 21:15 09/14/24 21:53 0.9 % Sodium Chloride 1000 Ml IV 09/14/24 22:14 Infused .Q1H FLAQUITA Infusion Sodium Chloride 1,000 mls @ 125 mls/hr 09/14/24 23:47 09/15/24 00:27 0.9 % Sodium Chloride 1000 Ml IV 0 mls/hr .Q8H FLAQUITA Infusion Metoclopramide HCl 10 mg 09/14/24 20:47 09/14/24 21:22 Metoclopramide Hcl 5 Mg/Ml Inj IVP 09/14/24 20:48 10 mg ONCE ONE Administration <Josefa Benjamin MD - Last Filed: 09/15/24 06:51> Medical Decision Making [facility] Narrative Medical decision making narrative: Patient is a 74-year-old female presenting for multiple complaints. She is having a mild headache and I will order a CT head to evaluate her headache and mild confusion. She very well could be dehydrated so will give her some fluids. Along with this cell give her some Reglan for her nausea. Benadryl also be added. This migraine cocktail should help with her headache also. Will do some orthostatic blood pressures. While check viral swabs, urinalysis and, CBC, CMP, magnesium, EKG, troponin. Patient CBC shows no concerning abnormalities. Hemoglobin is stable. BMP returns with a sodium of 122. He was previously 127 here but based on epic charts the. She is usually in the 130s to 136. Due to this I do believe we need to admit her for hyponatremia. She is not appear to be fluid overload right now. Unfortunately we have no beds available so we are required to transfer her. Her and her are agreeable to this plan. She does states she started to feel better but when we got her up for orthostatic vital sign she still felt very lightheaded and felt like she was going to fall down. She did not look very stable when she stood up. EKG shows no concerning abnormalities. Orthostatic vital signs were normal though. Repeat sodium shows no changes. We do not have any beds available at our hospital so we are looking for a transfer to another hospital <Yvan Lawrence DO - Last Filed: 09/14/24 23:53> Lab Data Lab results reviewed: Yes I reviewed the patient's lab results <Josefa Benjamin MD - Last Filed: 09/15/24 06:51> Lab results narrative: Initial sodium 122, repeat is 130 after overnight treatment. <Josefa Benjamin MD - Last Filed: 09/15/24 06:51> Labs: Lab Results 09/14/24 09/14/24 09/14/24 Range/Units 21:00 23:10 23:15 WBC 7.05 (4.50-11.00) K/uL RBC 3.79 L (4.00-5.20) m/uL Hgb 11.8 L (12.0-16.0) gm/dL Hct 34.3 (33.0-51.0) % MCV 91 (80-100) fL MCH 31 (26-34) pg MCHC 34 (32-36) gm/dL RDW Coeff of Omar 12.0 (11.5-15.5) % Plt Count 294 (140-440) K/uL Neut % (Auto) 49.9 (42.0-72.0) % Lymph % (Auto) 31.1 (20-44) % Hendry % (Auto) 16.2 H (0.0-11.0) % Eos % (Auto) 1.6 (0.0-7.0) % Baso % (Auto) 0.9 (0.0-3.0) % Neut # (Auto) 3.53 (1.7-7.0) K/uL Lymph # (Auto) 2.19 (0.90-2.90) K/uL Hendry # (Auto) 1.10 H (0.00-0.90) K/UL Eos # (Auto) 0.11 (0.00-0.50) K/uL Baso # (Auto) 0.06 (0.00-0.30) K/uL Abs Immat Gran (auto) 0.02 (0.00-0.30) K/uL Imm/Tot Granulo (auto) 0.3 % Sodium 122 L* 122 L* (135-149) mmol/L Potassium 3.8 (3.6-5.1) mmol/L Chloride 92 L (96-114) mmol/L Carbon Dioxide 21 (20-32) mmol/L Anion Gap 9 (7-15) mEq/L BUN 10 (7-30) mg/dL Creatinine 0.8 (0.5-1.5) mg/dL Estimated Creat Clear 36.12 Estimated GFR 76 ml/min Glucose 87 (60-115) mg/dL Calcium 8.8 (8.4-10.6) mg/dL Magnesium 1.7 (1.5-2.6) mg/dL Total Bilirubin 0.5 (0.1-1.5) mg/dL AST 28 (12-35) U/L ALT 16 (4-35) U/L Alkaline Phosphatase 57 (40-150) U/L Troponin I < 0.01 (0.01-0.04) ng/mL Total Protein 6.6 (6.0-8.3) g/dL Albumin 4.1 (3.3-5.0) g/dL Urine Color Yellow (Yellow) Urine Appearance Clear (Clear) Urine pH 7.0 (5.0-8.5) Ur Specific [place] 1.010 (1.000-1.030) Urine Protein Negative (Negative) Urine Glucose (UA) Negative (Negative) Urine Ketones 1+ A (Negative) Urine Blood Negative (Negative) Urine Nitrite Negative (Negative) Urine Bilirubin Negative (Negative) Urine Urobilinogen 0.2 (0.2-1.0) Ur Leukocyte Esterase Negative (Negative) Urine RBC 0-2 (0-2) Urine WBC 0-2 (0-5) Ur Squamous Epith Cells Few (None-Few) Urine Bacteria None (None) SARS-CoV-2 (PCR) Negative SARS-CoV-2 (Negative) Influenza Type A (PCR) Negative PCR FLU A (Negative) Influenza Type B (PCR) Negative PCR FLU B (Negative) RSV (PCR) Negative PCR RSV (Negative) 09/15/24 Range/Units 06:00 WBC (4.50-11.00) K/uL RBC (4.00-5.20) m/uL Hgb (12.0-16.0) gm/dL Hct (33.0-51.0) % MCV (80-100) fL MCH (26-34) pg MCHC (32-36) gm/dL RDW Coeff of Omar (11.5-15.5) % Plt Count (140-440) K/uL Neut % (Auto) (42.0-72.0) % Lymph % (Auto) (20-44) % Hendry % (Auto) (0.0-11.0) % Eos % (Auto) (0.0-7.0) % Baso % (Auto) (0.0-3.0) % Neut # (Auto) (1.7-7.0) K/uL Lymph # (Auto) (0.90-2.90) K/uL Hendry # (Auto) (0.00-0.90) K/UL Eos # (Auto) (0.00-0.50) K/uL Baso # (Auto) (0.00-0.30) K/uL Abs Immat Gran (auto) (0.00-0.30) K/uL Imm/Tot Granulo (auto) % Sodium 130 L (135-149) mmol/L Potassium 4.1 (3.6-5.1) mmol/L Chloride 103 (96-114) mmol/L Carbon Dioxide 21 (20-32) mmol/L Anion Gap 6 L (7-15) mEq/L BUN 9 (7-30) mg/dL Creatinine 0.7 (0.5-1.5) mg/dL Estimated Creat Clear 36.12 Estimated GFR 90 ml/min Glucose 88 (60-115) mg/dL Calcium 8.2 L (8.4-10.6) mg/dL Magnesium (1.5-2.6) mg/dL Total Bilirubin (0.1-1.5) mg/dL AST (12-35) U/L ALT (4-35) U/L Alkaline Phosphatase (40-150) U/L Troponin I (0.01-0.04) ng/mL Total Protein (6.0-8.3) g/dL Albumin (3.3-5.0) g/dL Urine Color (Yellow) Urine Appearance (Clear) Urine pH (5.0-8.5) Ur Specific [place] (1.000-1.030) Urine Protein (Negative) Urine Glucose (UA) (Negative) Urine Ketones (Negative) Urine Blood (Negative) Urine Nitrite (Negative) Urine Bilirubin (Negative) Urine Urobilinogen (0.2-1.0) Ur Leukocyte Esterase (Negative) Urine RBC (0-2) Urine WBC (0-5) Ur Squamous Epith Cells (None-Few) Urine Bacteria (None) SARS-CoV-2 (PCR) (Negative) Influenza Type A (PCR) (Negative) Influenza Type B (PCR) (Negative) RSV (PCR) (Negative) <Yvan Lawrence, DO - Last Filed: 09/14/24 23:53> Lab Results 09/14/24 09/14/24 09/14/24 Range/Units 21:00 23:10 23:15 WBC 7.05 (4.50-11.00) K/uL RBC 3.79 L (4.00-5.20) m/uL Hgb 11.8 L (12.0-16.0) gm/dL Hct 34.3 (33.0-51.0) % MCV 91 (80-100) fL MCH 31 (26-34) pg MCHC 34 (32-36) gm/dL RDW Coeff of Omar 12.0 (11.5-15.5) % Plt Count 294 (140-440) K/uL Neut % (Auto) 49.9 (42.0-72.0) % Lymph % (Auto) 31.1 (20-44) % Hendry % (Auto) 16.2 H (0.0-11.0) % Eos % (Auto) 1.6 (0.0-7.0) % Baso % (Auto) 0.9 (0.0-3.0) % Neut # (Auto) 3.53 (1.7-7.0) K/uL Lymph # (Auto) 2.19 (0.90-2.90) K/uL Hendry # (Auto) 1.10 H (0.00-0.90) K/UL Eos # (Auto) 0.11 (0.00-0.50) K/uL Baso # (Auto) 0.06 (0.00-0.30) K/uL Abs Immat Gran (auto) 0.02 (0.00-0.30) K/uL Imm/Tot Granulo (auto) 0.3 % Sodium 122 L* 122 L* (135-149) mmol/L Potassium 3.8 (3.6-5.1) mmol/L Chloride 92 L (96-114) mmol/L Carbon Dioxide 21 (20-32) mmol/L Anion Gap 9 (7-15) mEq/L BUN 10 (7-30) mg/dL Creatinine 0.8 (0.5-1.5) mg/dL Estimated Creat Clear 36.12 Estimated GFR 76 ml/min Glucose 87 (60-115) mg/dL Calcium 8.8 (8.4-10.6) mg/dL Magnesium 1.7 (1.5-2.6) mg/dL Total Bilirubin 0.5 (0.1-1.5) mg/dL AST 28 (12-35) U/L ALT 16 (4-35) U/L Alkaline Phosphatase 57 (40-150) U/L Troponin I < 0.01 (0.01-0.04) ng/mL Total Protein 6.6 (6.0-8.3) g/dL Albumin 4.1 (3.3-5.0) g/dL Urine Color Yellow (Yellow) Urine Appearance Clear (Clear) Urine pH 7.0 (5.0-8.5) Ur Specific [place] 1.010 (1.000-1.030) Urine Protein Negative (Negative) Urine Glucose (UA) Negative (Negative) Urine Ketones 1+ A (Negative) Urine Blood Negative (Negative) Urine Nitrite Negative (Negative) Urine Bilirubin Negative (Negative) Urine Urobilinogen 0.2 (0.2-1.0) Ur Leukocyte Esterase Negative (Negative) Urine RBC 0-2 (0-2) Urine WBC 0-2 (0-5) Ur Squamous Epith Cells Few (None-Few) Urine Bacteria None (None) SARS-CoV-2 (PCR) Negative SARS-CoV-2 (Negative) Influenza Type A (PCR) Negative PCR FLU A (Negative) Influenza Type B (PCR) Negative PCR FLU B (Negative) RSV (PCR) Negative PCR RSV (Negative) 09/15/24 Range/Units 06:00 WBC (4.50-11.00) K/uL RBC (4.00-5.20) m/uL Hgb (12.0-16.0) gm/dL Hct (33.0-51.0) % MCV (80-100) fL MCH (26-34) pg MCHC (32-36) gm/dL RDW Coeff of Omar (11.5-15.5) % Plt Count (140-440) K/uL Neut % (Auto) (42.0-72.0) % Lymph % (Auto) (20-44) % Hendry % (Auto) (0.0-11.0) % Eos % (Auto) (0.0-7.0) % Baso % (Auto) (0.0-3.0) % Neut # (Auto) (1.7-7.0) K/uL Lymph # (Auto) (0.90-2.90) K/uL Hendry # (Auto) (0.00-0.90) K/UL Eos # (Auto) (0.00-0.50) K/uL Baso # (Auto) (0.00-0.30) K/uL Abs Immat Gran (auto) (0.00-0.30) K/uL Imm/Tot Granulo (auto) % Sodium 130 L (135-149) mmol/L Potassium 4.1 (3.6-5.1) mmol/L Chloride 103 (96-114) mmol/L Carbon Dioxide 21 (20-32) mmol/L Anion Gap 6 L (7-15) mEq/L BUN 9 (7-30) mg/dL Creatinine 0.7 (0.5-1.5) mg/dL Estimated Creat Clear 36.12 Estimated GFR 90 ml/min Glucose 88 (60-115) mg/dL Calcium 8.2 L (8.4-10.6) mg/dL Magnesium (1.5-2.6) mg/dL Total Bilirubin (0.1-1.5) mg/dL AST (12-35) U/L ALT (4-35) U/L Alkaline Phosphatase (40-150) U/L Troponin I (0.01-0.04) ng/mL Total Protein (6.0-8.3) g/dL Albumin (3.3-5.0) g/dL Urine Color (Yellow) Urine Appearance (Clear) Urine pH (5.0-8.5) Ur Specific [place] (1.000-1.030) Urine Protein (Negative) Urine Glucose (UA) (Negative) Urine Ketones (Negative) Urine Blood (Negative) Urine Nitrite (Negative) Urine Bilirubin (Negative) Urine Urobilinogen (0.2-1.0) Ur Leukocyte Esterase (Negative) Urine RBC (0-2) Urine WBC (0-5) Ur Squamous Epith Cells (None-Few) Urine Bacteria (None) SARS-CoV-2 (PCR) (Negative) Influenza Type A (PCR) (Negative) Influenza Type B (PCR) (Negative) RSV (PCR) (Negative) <Josefa Benjamin MD - Last Filed: 09/15/24 06:51> Imaging Data CT scan - head: Radiologist's impression: 1. No radiographic evidence of acute intracranial abnormalities. 2. Mild cerebral atrophy. 3. [id number] supratentorial white matter changes that are non-specific, but statistically most likely related to chronic small vessel ischemic disease. Please note that all CT scans at this facility use dose modulation, iterative reconstruction, and/or weight-based dosing when appropriate to reduce radiation dose to as low as reasonably achievable. Dictated by Dylan Bowman MD @ 09/14/2024 9:48:22 PM <Yvan Lawrence DO - Last Filed: 09/14/24 23:53> ECG Data Attestation: I personally reviewed and interpreted this ECG as follows: <Yvan Lawrence DO - Last Filed: 09/14/24 23:53> Prior ECG tracings: available for review <Yvan Lawrence DO - Last Filed: 09/14/24 23:53> Interpretation: Normal sinus rhythm with rate 76 beats per minute, normal intervals, normal axis, no ST or T-wave abnormalities. Appears similar previous EKGs on file. <Yvan Lawrence DO - Last Filed: 09/14/24 23:53> Discharge Plan Discharge Clinical Impression: Acute hyponatremia <Yvan Lawrence DO - Last Filed: 09/14/24 23:53> Patient Disposition: Home w/ Parent or Adult <Yvan Lawrence DO - Last Filed: 09/14/24 23:53> Condition: Stable <Yvan Lawrence DO - Last Filed: 09/14/24 23:53> Instructions: Hyponatremia (ED) <Yvan Lawrence DO - Last Filed: 09/14/24 23:53> Additional Instructions: As we discussed, your salt levels became low for uncertain reasons. We do see this phenomenon happened fairly commonly in women. Most of the time there is a medication change that initiates this cascade. In your case I think it was most likely the doxycycline that you were taking for your scalp condition. I want you to stop taking that medication. You may continue using the clobetasol topical treatment. Most of the time, if we stop the medication, your levels improve on their own, gradually. There is a small possibility it could be 1 of your other medications causing this salt imbalance, but the doxycycline is most likely an is the optimal place to start. It is important that you have your blood work rechecked in about 2 days so that we can be sure that things continue to improve and do not worsen again. If this all levels worsen again, this would indicate that your salt balance was caused by a different problem than the medication and would need a lot more workup. Please call your primary care clinic today and request an appointment and lab follow-up for 2 days from now. In the meantime, eat your typical diet, it is a good idea to eat salty foods for the next couple of weeks but you do not need to purposefully had a lot of salt to your diet. If you have persistent vomiting, significant nausea, dizziness, neurological changes or other red flags, you should return to the emergency department. <Yvan Lawrence DO - Last Filed: 09/14/24 23:53> Activity Level: Activity as Tolerated <Yvan Lawrence DO - Last Filed: 09/14/24 23:53> Activity as Tolerated <Josefa Benjamin MD - Last Filed: 09/15/24 06:51> Discharge Diet: Regular <Yvan Lawrence DO - Last Filed: 09/14/24 23:53> Regular <Josefa Benjamin MD - Last Filed: 09/15/24 06:51> Prescriptions: Discontinued doxycycline hyclate 50 mg capsule 50 mg PO DAILY No Action omeprazole 20 mg capsule,delayed release(DR/EC) 20 mg PO DAILY amoxicillin 250 mg capsule 250 mg PO DAILY PRN (Reason: chronic bladder infections) Rx Instructions: after intercourse Tums 300 mg (750 mg) tablet,chewable 300 mg PO DAILY cholecalciferol (vitamin D3) [Vitamin D3] 50 mcg (2,000 unit) capsule 50 mcg PO DAILY clobetasol 0.05 % solution 1 applic topical QHS PRN Patient Comments: [NO ORIGINAL SIG] rosuvastatin 20 mg tablet 20 mg PO HS acetaminophen 500 mg capsule 500 - 1,000 mg PO Q6H MDD 4000mg per day PRN (Reason: pain) Qty: 100 0RF triamcinolone acetonide 0.1 % cream 1 applic topical BID Qty: 30 2RF <Yvan Lawrence DO - Last Filed: 09/14/24 23:53> Follow Up/Referrals: Nataly Rodríguez MD [Primary Care Provider, Family Practice] <DO Astrid Stock Last Filed: 09/14/24 23:53> Stand Alone Forms: [employer] Info Instructions <Yvan Lawrence DO - Last Filed: 09/14/24 23:53>
[2024-09-14] MEDS: 0.9 % SODIUM CHLORIDE 1000 ml 1,000 ML IV (20:50)
[2024-09-14 21:21] LABS: Albumin* 4.1 g/dL (3.3-5.0); Basophils Absolute Auto 0.06 K/uL (0.00-0.30); Basophils Percent Auto 0.9 % (0.0-3.0); Chloride* 92 mmol/L (96-114); Eosinophils Absolute Auto 0.11 K/uL (0.00-0.50); Eosinophils Percent Auto 1.6 % (0.0-7.0); Hematocrit 34.3 % (33.0-51.0); Hemoglobin* 11.8 gm/dL (12.0-16.0); Immature Granulocytes Abs Auto 0.02 K/uL (0.00-0.30); Immature Granulocytes Pct Auto 0.3 %; Lymphocytes Absolute Auto 2.19 K/uL (0.90-2.90); Lymphocytes Percent Auto 31.1 % (20-44); Mean Corpuscular HGB Conc 34 gm/dL (32-36); Mean Corpuscular Hemoglobin 31 pg (26-34); Mean Corpuscular Volume 91 fL (80-100); Monocytes Percent Auto 16.2 % (0.0-11.0); Neutrophils Absolute Auto 3.53 K/uL (1.7-7.0); Neutrophils Percent Auto 49.9 % (42.0-72.0); Platelet Count* 294 K/uL (140-440); Potassium* 3.8 mmol/L (3.6-5.1); Red Blood Count 3.79 m/uL (4.00-5.20); White Blood Count* 7.05 K/uL (4.50-11.00)
[2024-09-14 21:22] LABS: Slide Review Reflex No
[2024-09-14] MEDS: METOCLOPRAMIDE HCL 5 MG/ML INJ 10 MG IVP (21:22)
[2024-09-14] MEDS: diphenhydrAMINE 50 MG/ML inj 25 MG IVP (21:22)
[2024-09-14 21:24] LABS: Alanine Aminotransferase* 16 U/L (4-35); Alkaline Phosphatase* 57 U/L (40-150); Anion Gap 9 mEq/L (7-15); Aspartate Amino Transferase* 28 U/L (12-35); Bilirubin Total* 0.5 mg/dL (0.1-1.5); Blood Urea Nitrogen* 10 mg/dL (7-30); Carbon Dioxide* 21 mmol/L (20-32); Creatinine* 0.8 mg/dL (0.5-1.5); Est. Creatinine Clearance* 36.12; Estimated Glomerular Filt Rate 76 ml/min; Total Protein* 6.6 g/dL (6.0-8.3)
[2024-09-14 21:25] LABS: Calcium* 8.8 mg/dL (8.4-10.6); Glucose* 87 mg/dL (60-115); Magnesium* 1.7 mg/dL (1.5-2.6)
[2024-09-14 21:26] LABS: Sodium* 122 mmol/L (135-149)
[2024-09-14 21:38] LABS: Troponin I* < 0.01 ng/mL (0.01-0.04)
[2024-09-14 21:56] LABS: PCR FLU A Negative PCR FLU A (Negative); PCR FLU B Negative PCR FLU B (Negative); PCR RSV Negative PCR RSV (Negative); SARS PCR* Negative SARS-CoV-2 (Negative)
[2024-09-14 23:23] LABS: Appearance Urine Clear (Clear); Bilirubin Urine Negative (Negative); Blood Urine Negative (Negative); Color Urine Yellow (Yellow); Glucose Urine Negative (Negative); Ketones Urine 1+ (Negative); Leukocyte Esterase Urine Negative (Negative); Nitrite Urine Negative (Negative); Protein Urine Negative (Negative); Urobilinogen Urine 0.2 (0.2-1.0)
[2024-09-14 23:42] LABS: Sodium* 122 mmol/L (135-149)
[2024-09-14] MEDS: 0.9 % SODIUM CHLORIDE 1000 ml 1,000 ML 125 ML IV (23:52)
[2024-09-14 23:58] LABS: RBC Urine 0-2 (0-2); Squamous Epithelial Cell Urine Few (None-Few); WBC Urine 0-2 (0-5)
[2024-09-15] VITALS (11 sets, daily range): BP systolic 112–127; BP diastolic 65–88; PULSE 65–79; RESP 12–21; TEMP 36.8; O2SAT 93–97
[2024-09-15] MEDS: 0.9 % SODIUM CHLORIDE 1000 ml 1,000 ML 200 ML IV ×2 (00:24→05:25)
[2024-09-15] MEDS: CALCIUM CARBONATE 500 MG CHEW PO (00:24)
[2024-09-15 06:25] LABS: Chloride* 103 mmol/L (96-114); Potassium* 4.1 mmol/L (3.6-5.1); Sodium* 130 mmol/L (135-149)
[2024-09-15 06:28] LABS: Anion Gap 6 mEq/L (7-15); Blood Urea Nitrogen* 9 mg/dL (7-30); Carbon Dioxide* 21 mmol/L (20-32); Creatinine* 0.7 mg/dL (0.5-1.5); Est. Creatinine Clearance* 36.12; Estimated Glomerular Filt Rate 90 ml/min
[2024-09-15 06:29] LABS: Calcium* 8.2 mg/dL (8.4-10.6); Glucose* 88 mg/dL (60-115)
== END 2024-09-15 07:18 | disposition home or self-care (01) ==
PROVIDERS: Student in an Organized Health Care Education/Training Program; Emergency Provider Family Medicine; PCP Family Medicine
DX: E87.1 Hypo-osmolality and hyponatremia (principal); R41.0 Disorientation, unspecified; R51.9 Headache, unspecified; R11.0 Nausea; R42 Dizziness and giddiness
CPT/HCPCS: 36415; 70450; 80048; 80053; 81001; 83735; 84295; 84484; 85025; 87631; 93005; 96361; 96374; 96375; 99284; 99285; A9270; J1200; J2765; J7030

== ENCOUNTER 2024-10-30 07:33 | Day surgery (SDC) | payer MEDICARE, BC, SELFPAY ==
[2024-10-30] VITALS (26 sets, daily range): BP systolic 64–130; BP diastolic 47–101; PULSE 60–96; RESP 15–18; TEMP 36.2–36.6; O2SAT 93–100; BMI 30.8
[2024-10-30] MEDS: OXYCODONE (CR) 10 MG TAB.ER.12H PO (07:38)
[2024-10-30] MEDS: LACTATED RINGERS 1000 ML 1,000 ML 100 ML IV ×2 (08:45→11:05)
--- NOTE | 2024-10-30 08:45 | CRLHL7_ITS ---
For Patients: As a result of the Cures Act, medical imaging exams and procedure reports are released immediately into your electronic medical record. You may view this report before your referring provider. If you have questions, please contact your health care provider. Indication: Hip replacement surgery Technique: AP hip fluoroscopic images. Fluoroscopy time 52.3 seconds. Findings/Impression: Hardware from a left total hip arthroplasty is in satisfactory position. Dictated by Ricardo Jiang MD @ 10/30/2024 12:41:04 PM (Electronically Signed)
[2024-10-30] MEDS: ACETAMINOPHEN 500 MG TABLET 1000 MG PO ×3 (09:05→21:59)
[2024-10-30] MEDS: MIDAZOLAM HCL 1 MG/ML inj IVP (09:05)
[2024-10-30] MEDS: TRANEXAMIC ACID 100 MG/ML INJ 1000 MG IV (09:25)
--- NOTE | 2024-10-30 09:29 | SUR.PREOP ---
Patient stated povidone iodine has not caused a reaction and agreed to nasal swabs. Stated in a allergy study it was listed as a potential allergy.
--- NOTE | 2024-10-30 10:03 | P.ANES_ITS ---
Anesthesia Charges Start Date/Time Anesthesia Start Date: 10/30/24 Anesthesia Start Time: 09:15 Stop Date/Time Anesthesia Stop Date: 10/30/24 Anesthesia Stop Time: 11:43 Summary Extremes of Age - Over 70 or under 1: MDA Coding CPT Codes CPT Codes: ANESTH HIP ARTHROPLASTY - 25344 ([id number]) P2 - PATIENT W/MILD SYST DISEASE, QK - COMMUNITY EDUCATION SPECIALIST 2-4 CNCRNT ANES PROC, QX - VA UNDERWRITER SVC W/ MD MED DIRECTION Additional Codes: Summary - Extremes of Age - Over 70 or under 1: MDA ([id number])
--- NOTE | 2024-10-30 10:03 | P.NB_ITS ---
Nerve Block Nerve Block Time Seen by Provider: 09:05 Date Seen: 10/30/24 Type of block requested by surgeon for post-operative analgesia: SHERLEY/LFCN Side: left Time out performed: Yes Verification of patient name: Yes Verification of date of : Yes Site marking: site marked Name of person performing procedure: Johnny Continuous monitoring Was continuous monitoring of O2 sat, B/P, supervisor fish processing, recorded every 15 minutes?: Yes Procedure Checklist: sterile prep, needles and gloves Ultrasound guided. Images saved: Yes Medications given in 5ml increments after negative aspiration: Ropivicaine %: 0.5 mL: 30 Needle gauge: 20 Precedex (mcg): 25 Patient tolerated procedure well: Yes Additional comments: Needle noted below psoas tendon needle noted adjacent to LFCN Block Charges Block Charge (with Pro Fee): Other Periph Nerve Block Use of Ultrasound Machine for Block: Yes- US Guidance/pain block
--- NOTE | 2024-10-30 10:03 | W.ANESCHARGE ---
Anesthesia Charges Start Date/Time Anesthesia Start Date: 10/30/24 Anesthesia Start Time: 09:15 Stop Date/Time Anesthesia Stop Date: 10/30/24 Anesthesia Stop Time: 11:43 Summary Extremes of Age - Over 70 or under 1: MDA Coding CPT Codes CPT Codes: ANESTH HIP ARTHROPLASTY - 34009 ([id number]) P2 - PATIENT W/MILD SYST DISEASE, QK - USED CAR RENOVATOR 2-4 CNCRNT ANES PROC, QX - PRIMER BOXER SVC W/ MD MED DIRECTION Additional Codes: Summary - Extremes of Age - Over 70 or under 1: MDA ([id number])
--- NOTE | 2024-10-30 10:52 | CRLHL7_ITS ---
For Patients: As a result of the Cures Act, medical imaging exams and procedure reports are released immediately into your electronic medical record. You may view this report before your referring provider. If you have questions, please contact your health care provider. Indication: Postop left TOMMY Technique: AP pelvis and lateral view left hip Findings/Impression: Hardware from a left total hip arthroplasty is in satisfactory position. Bone alignment is normal. No sign of acute fracture. Postop changes are within normal limits. Dictated by Ricardo Jiang MD @ 10/30/2024 12:41:40 PM (Electronically Signed)
--- NOTE | 2024-10-30 11:50 | P.ANES_ITS ---
Anesthesia Charges Start Date/Time Anesthesia Start Date: 10/30/24 Anesthesia Start Time: 09:15 Stop Date/Time Anesthesia Stop Date: 10/30/24 Anesthesia Stop Time: 11:43 Coding CPT Codes CPT Codes: ANESTH HIP ARTHROPLASTY - 33956 ([id number]) P2 - PATIENT W/MILD SYST DISEASE, QK - MANAGEMENT LECTURER 2-4 CNCRNT ANES PROC, QX - STEM CRUSHER SVC W/ MD MED DIRECTION
--- NOTE | 2024-10-30 11:50 | W.ANESCHARGE ---
Anesthesia Charges Start Date/Time Anesthesia Start Date: 10/30/24 Anesthesia Start Time: 09:15 Stop Date/Time Anesthesia Stop Date: 10/30/24 Anesthesia Stop Time: 11:43 Coding CPT Codes CPT Codes: ANESTH HIP ARTHROPLASTY - 39193 ([id number]) P2 - PATIENT W/MILD SYST DISEASE, QK - EXPLOSIVE TECHNICIAN 2-4 CNCRNT ANES PROC, QX - SERVER CASHIER SVC W/ MD MED DIRECTION
--- NOTE | 2024-10-30 13:54 | PM.ORPRC ---
Procedure Note Date of procedure: 10/30/24 Procedure: PREOPERATIVE DIAGNOSIS: Left hip osteoarthritis POSTOPERATIVE DIAGNOSIS: Left hip osteoarthritis NAME OF OPERATION: Left total hip arthroplasty SURGEON: Sony Damian MD ELECTRONIC PREPRESS OPERATOR: Arti Riggs PA-C, SHANTI Parikh IMPLANTS: 1. [employer] [place] # 48 sector ingrowth cup 2. 32 x 48 +4 neutral polyethylene 3. Actis # 3 standard collared ingrowth stem 4. 32 + 1 cobalt chrome femoral head ANESTHESIA: General ESTIMATED BLOOD LOSS: 650 cc COMPLICATIONS: None SPECIMENS: None DRAINS: None PREOPERATIVE ANTIBIOTICS: Ancef 1 g INDICATIONS: The patient is a 74-year-old with a longstanding history of severe, unrelenting left hip pain secondary to end-stage left hip osteoarthritis. Despite appropriate nonoperative management, including activity modification, use of an assist device, anti-inflammatories, [id number] pain medication, physical therapy and injections, they continue to have pain and disability. Operative intervention was offered. The risks, benefits and expected outcomes were discussed in detail. These included but were not limited to: Infection, bleeding, injury to blood vessel or nerve, venous thromboembolism. All questions were answered to their satisfaction. Use of an clerical administrative assistant was necessary throughout the case for patient positioning and safety, soft tissue retraction and closure. PROCEDURE: The patient was placed supine on the Arthur table. General anesthesia was administered. The clerical administrative assistant made sure the patient was properly positioned. The left hip was prepped and draped in the usual sterile fashion. The image intensifier was brought in for a perfect AP pelvis and a perfect double tear drop AP view of each hip which were used for intraoperative templating with our fluoroscopic guide. A bikini incision was made in the hip flexion crease. The clerical administrative assistant retracted the soft tissues to protect them. Subcutaneous dissection was taken with electrocautery to the superficial fascia. The fascia was divided in line with the TFL fibers. Blunt dissection was carried medially to the tensor fascia pili and sartorius interval. Deep dissection was carried with electrocautery. The circumflex vessels were cauterized and divided. The capsule was exposed and then divided in a T-fashion, tagged with #1 FiberWire sutures. Retractors were placed in the joint, held by the clerical administrative assistant. The corkscrew was placed in the femoral head. The neck cut was made in the subcapital region. We made a second neck cut more distal. The napkin ring of bone was removed. The femoral head was removed intact. Acetabular retractors were placed, held by the clerical administrative assistant. The labrum was sharply debrided. The capsule was released. The 43 mm reamer was used to the true medial wall. We then enlarged in 2 mm increments using the image intensifier for our reamer placement. We impacted the cup which had excellent purchase. We placed the polyethylene. Attention was then turned to the proximal femur. The limb was placed in 140 degrees of external rotation, maximum extension and adduction. A significant amount of time was spent releasing the capsule to allow us to deliver the femur into the wound and complete the femoral side safely. Retractors were held by the clerical administrative assistant throughout the femoral preparation. The box fabricator and canal finder were used. Broaches were used to a stable size. The calcar reamer was used. Trial components were placed. The hip was reduced and was found to be stable with appropriate soft tissue tension. Length and offset had been nicely restored using the image intensifier and our fluoroscopic guide. Trial components were removed. The stem was impacted. We placed the femoral head. Again, the hip was reduced and was found to be stable with appropriate soft tissue tension. Length and offset had been nicely restored. The clerical administrative assistant did a three minute dilute Betadine solution soak. The clerical administrative assistant irrigated the wound with 3 liters of normal saline via pulse lavage. The clerical administrative assistant repaired the anterior capsule with a #1 Vicryl and our previously placed Ethibond sutures. The clerical administrative assistant closed the fascia over the tensor fascia pili with a #1 PDO Stratafix, subcutaneous tissues with 2-0 Vicryl, skin with a running 3-0 Stratafix and glue. A dry dressing was applied by the clerical administrative assistant. Sponge and needle counts were correct x 2. The patient tolerated the procedure well; there were no apparent complications. They were awakened and extubated in the operating room, sent to the Post-Anesthesia Care Unit in satisfactory condition. PLAN: 1. The patient will be mobilized with physical therapy, weight-bearing as tolerates 2. Xarelto x 5 days then aspirin x 30 days will be used for DVT prophylaxis 3. The patient will be discharged once medically appropriate
--- NOTE | 2024-10-30 14:52 | PC.NURSE ---
End of shift [id number]: Pt arrived to the unit @ 1225, accompanied by . Pt reported pain to the L hip, describing it as sharp and achy intermittently. It Support Specialist utilized prn pain medication, reposition, and active ice to op site. Op site remains CDI. LR running @ 75. Pt advanced to regular diet. Denies nausea. Pt up with therapy, tolerated transfer to the chair well. Pt appears resting with call light in reach, family at bedside.
--- NOTE | 2024-10-30 15:20 | PM.IMCN1 ---
Date of Consult Patient: Bunny Patient Consult date: 10/30/24 Requesting Physician: Orthopedics Primary Care Provider: Nataly Rodríguez MD Consult Narrative Narrative: Shefali Sanders is a 74 year old woman undergoes elective left total hip arthroplasty today per Dr. Kike Damian, [facility], [place], [place]. No apparent complications. Estimated blood loss 650 mL. Indicates pain is well controlled at this time. Patient has had severe, progressive debility in association with evolving left Rosa arthrosis. Review of Systems Status of ROS: Reports: 6 or more systems reviewed and unremarkable except as noted in History and below Narrative: Denies cardiopulmonary or gastrointestinal or genitourinary symptoms. Patient has had long had intermittent episodes of ocular migraine. 2 to 3 weeks ago patient experienced 3 transient 10 minute episodes of seen squiggly lines in both eyes, with 1 of the these episodes having associated headache afterward which is unusual for her. Conferred with her primary care physician who believes patient may have ocular migraines. CT scan obtained on 09/14/2024 when she presented to the emergency department for assessment of 1 of these episodes of ocular migraine revealed mild cerebral atrophy and chronic small-vessel ischemic changes only. She has not had any of these episodes since. 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 No recent trauma, injury, travel. No recent illness, fever, rigors, diaphoresis. 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) Temporomandibular joint disorders, unspecified (06/22/06) ?M26.609 - Unspecified temporomandibular joint disorder, unspecified side (ICD-10) Sigmoid diverticulitis (02/01/18) ?K57.32 - Diverticulitis of large intestine without perforation or abscess without bleeding (ICD-10) Personal history of urinary (tract) infection (06/22/06) ?Z87.440 - Personal history of urinary (tract) infections (ICD-10) Osteoporosis (10/01/12) ?M81.0 - Age-related osteoporosis without current pathological fracture (ICD-10) Gastroesophageal reflux disease without esophagitis (09/05/16) ?K21.9 - Gastro-esophageal reflux disease without esophagitis (ICD-10) Perforated diverticulum ?K57.80 - Diverticulitis of intestine, part unspecified, with perforation and abscess without bleeding (ICD-10) Acute diverticulitis of intestine ?K57.92 - Diverticulitis of intestine, part unspecified, without perforation or abscess without bleeding (ICD-10) Ganglion cyst ?M67.40 - Ganglion, unspecified site (ICD-10) Internal impingement of left shoulder ?M75.42 - Impingement syndrome of left shoulder (ICD-10) Surgical History (Updated 10/30/24 @ 15:31 by Santiago Juárez MD) History of total left hip arthroplasty (10/30/24) ?Z96.642 - Presence of left artificial hip joint (ICD-10) History of arthroscopy of right knee (08/26/24) ?Z98.890 - Other specified postprocedural states (ICD-10) History of cataract extraction (2012) ?Z98.49 - Cataract extraction status, unspecified eye (ICD-10) History of esophagogastroduodenoscopy (EGD) ?Z98.890 - Other specified postprocedural states (ICD-10) H/O dilation and curettage ?Z98.890 - Other specified postprocedural states (ICD-10) History of surgical removal of ganglion cyst ?Z98.890 - Other specified postprocedural states (ICD-10) History of appendectomy ?Z90.49 - Acquired absence of other specified parts of digestive tract (ICD-10) Status post right knee replacement (11/27/23) ?Z96.651 - Presence of right artificial knee joint (ICD-10) History of partial colectomy ?Z90.49 - Acquired absence of other specified parts of digestive tract (ICD-10) H/O: hysterectomy ?Z90.710 - Acquired absence of both cervix and uterus (ICD-10) Social History Narrative: -Pat celebrating 53 years of marriage What is your current living situation?: I presently have a place to live In the past 12 months, utilities in danger of being shut off: no In past 12 months, lack of transportation kept you from medical appts, meetings, work, or getting things needed for daily living: no In the past 12 mos, have been you worried that your food would run out before you had money to buy more?: never true In the past 12 mos, the food you bought just didn't last and you didn't have money to buy more?: never true Highest level of school completed/degree received: Bachelor's degree Smoking Status: Never smoker Do you use any of these nicotine containing products: None Second hand tobacco smoke exposure: No How often do you have a drink containing alcohol: never How many standard drinks containing alcohol do you have on a typical day: 1 or 2 How often do you have six or more drinks on one occasion: Never AUDIT-C Alcohol total score: 0 Non-prescribed substance use: denies use Caffeine: No How often does anyone, including family, friends and others, physically hurt you: never How often does anyone, including family, friends and others, insult or talk down to you: never How often does anyone, including family, friends and others, threaten you with harm: never How often does anyone, including family, friends and others, scream or curse at you: never Are you using contraception or practicing any form of control: No service: No Meds Home Medications and Allergies Home Medications ?Medication ?Instructions ?Recorded ?Confirmed ?Type amoxicillin 250 mg capsule 250 mg PO DAILY PRN chronic 01/19/22 10/30/24 History bladder infections omeprazole 20 mg capsule,delayed 20 mg PO DAILY 01/19/22 10/30/24 History release rosuvastatin 20 mg tablet 20 mg PO HS 06/02/23 10/30/24 History clobetasol 0.05 % scalp solution 1 applic topical QHS PRN 07/30/24 10/30/24 History acetaminophen 500 mg capsule 500 - 1,000 mg (1 - 2 x 500 mg) PO 10/30/24 Rx Q6H PRN pain #100 caps aspirin 81 mg chewable tablet 81 mg PO BID for DVT prophylaxis 10/30/24 Rx (Aspirin Childrens) 30 days #60 tabs cholecalciferol (vitamin D3) 25 25 mcg PO DAILY 10/30/24 10/30/24 History mcg (1,000 unit) tablet (Vitamin D3) oxycodone 5 mg tablet 2.5 - 5 mg (0.5 - 1 x 5 mg) PO 10/30/24 Rx Q4-6H PRN Pain #42 tabs rivaroxaban 10 mg tablet (Xarelto) 10 mg PO DAILY DVT prophylaxis 4 10/30/24 Rx days #4 tabs sennosides 8.6 mg tablet (Senna 17.2 mg (2 x 8.6 mg) PO BID PRN 10/30/24 Rx Lax) constipation #100 tabs Allergies Allergy/AdvReac Type Severity Reaction Status Date / Time cefpodoxime Allergy Hives Verified 10/30/24 08:01 ciprofloxacin Allergy Verified 10/30/24 08:01 Cyanoacrylates Allergy Hives Verified 10/30/24 08:01 doxycycline Allergy Verified 10/30/24 08:01 metronidazole Allergy Hives Verified 10/30/24 08:01 nitrofurantoin Allergy Verified 10/30/24 08:01 povidone-iodine Allergy Hives Verified 10/30/24 08:01 scopolamine Allergy Verified 10/30/24 08:01 Sulfa (Sulfonamide Allergy Verified 10/30/24 08:01 Antibiotics) valdecoxib Allergy Verified 10/30/24 08:01 dermabond Allergy Severe Hives Uncoded 09/10/24 09:02 fragrance mix I or II Allergy Hives Uncoded 09/10/24 09:02 Myroxylon Pereirae/Balsam of Allergy Hives Uncoded 09/10/24 09:02 Jun Exam Narrative: Exam Narrative: Examined patient in her hospital room. She is sitting in the recliner chair next to her hospital bed. Appears comfortable and in no acute distress. Vision and hearing are adequate. Alert and oriented x4. From the, articulate, cooperative. Conjugate gaze. No icterus. Dentition in fair repair. Moist buccal mucosa. Neck is supple. Midline trachea. No head neck lymphadenopathy. Lungs are clear to auscultation without wheezing, rhonchi, rales. Chest wall excursions are full. No CVA tenderness. Heart tones with regular rhythm, normal S1-S2, without murmur, gallop, rub. PMI not laterally displaced. Abdomen with active bowel sounds, soft, nontender. No rebound or guarding. Skin is intact. No focal motor neurologic deficits. Const: Vital Signs, click to edit/add: Vital Signs - 24 hr 10/30/24 08:40 10/30/24 09:05 10/30/24 09:10 Temperature Pulse Rate 78 74 79 Respiratory Rate 16 16 16 Blood Pressure 130/81 113/101 H 102/69 Pulse Oximetry 99 100 100 Oxygen Delivery Me thod Nasal Cannula Oxygen Flow Rate 2 10/30/24 11:43 10/30/24 11:45 10/30/24 11:46 Temperature 97.4 F L Pulse Rate 60 64 Respiratory Rate 16 16 Blood Pressure 64/52 L 74/47 L 117/80 Pulse Oximetry 93 95 Oxygen Delivery Me thod Room Air Oxygen Flow Rate 10/30/24 11:50 10/30/24 11:55 10/30/24 12:00 Temperature Pulse Rate 81 81 96 Respiratory Rate 18 15 16 Blood Pressure 109/71 113/54 L 105/54 L Pulse Oximetry 96 98 97 Oxygen Delivery Me thod Oxygen Flow Rate 10/30/24 12:05 10/30/24 12:10 10/30/24 12:15 Temperature 97.6 F Pulse Rate 83 87 89 Respiratory Rate 16 18 16 Blood Pressure 93/62 106/62 108/64 Pulse Oximetry 96 95 100 Oxygen Delivery Me thod Room Air Oxygen Flow Rate 10/30/24 12:25 10/30/24 12:44 10/30/24 13:00 Temperature 97.4 F L 97.4 F L 97.2 F L Pulse Rate 83 82 70 Respiratory Rate 16 16 18 Blood Pressure 107/63 115/65 112/57 L Pulse Oximetry 96 97 100 Oxygen Delivery Me thod Room Air Room Air Room Air Oxygen Flow Rate 10/30/24 13:15 10/30/24 13:30 10/30/24 14:00 Temperature 97.4 F L 97.4 F L 97.3 F L Pulse Rate 78 89 75 Respiratory Rate 16 18 18 Blood Pressure 106/60 104/66 93/58 L Pulse Oximetry 97 93 93 Oxygen Delivery Me thod Room Air Room Air Room Air Oxygen Flow Rate 10/30/24 14:30 Temperature 97.4 F L Pulse Rate 76 Respiratory Rate 16 Blood Pressure 103/55 L Pulse Oximetry 93 Oxygen Delivery Me thod Room Air Oxygen Flow Rate ECG Attestation: I personally reviewed and interpreted this ECG as follows: Interpretation: Normal sinus rhythm. Assessment and Plan Assessment and plan (1) Osteoarthritis of left hip: Status: Acute (2) History of total left hip arthroplasty: Problem comment: Left total hip arthroplasty (10/30/2024, Dr. Damian) Status: Acute (3) Hypotension: Problem comment: - noted postoperatively without any other concerning symptoms, normal troponin, EKG, Hgb. No tachycardia, no hypotension - baseline BP typically low, will continue to monitor, holding parameters for narcotics Status: Acute (4) Ocular migraine: Status: Acute Plan 1. Reviewed impression, plan, recommendations with patient and 2. Answered their questions to their satisfaction 3. Continue with supportive efforts, including the hospitalist service being available to support if need be while she is still in the hospital 4. Completed hospitalist portion of discharge orders 5. They are agreeable with above stated plans recommendations Total Time Spent Total Time Spent: 55 minutes
[2024-10-30] MEDS: CEFAZOLIN 1 GM in 0.9 % SODIUM CHLORIDE Mini-bag 100 ML IVPB (16:24)
[2024-10-30] MEDS: MAG HYDROX/ALUMINUM HYD/SIMETH 30 ML ORAL.SUSP PO (16:33)
[2024-10-30] MEDS: LACTATED RINGERS 1000 ML 1,000 ML 75 ML IV (18:14)
[2024-10-30] MEDS: 0.9 % SODIUM CHLORIDE 500 ML 500 ML IV (18:41)
[2024-10-30] MEDS: ONDANSETRON 2 MG/ML inj 4 MG IVP (19:48)
[2024-10-30] MEDS: SODIUM CHLORIDE 0.9 % (FLUSH) 10 ML SYRINGE IVF (19:48)
[2024-10-30] MEDS: ROSUVASTATIN CALCIUM 10 MG TABLET 20 MG PO (20:02)
[2024-10-30] MEDS: SENNOSIDES 1 TAB TABLET 2 TAB PO (20:02)
--- NOTE | 2024-10-30 23:30 | PC.NURSE ---
Hypotensive this afternoon, 68 systolic. Although pt remained asymptomatic in her chair with MAP of 72, Dr. Londono was updated and pt received 500cc bolus of NS. BP's improved, most recently 118/63. VS otherwise WNL. She is voiding and tolerating a regular diet. Pt did c/o some mild nausea after her meal and was given PRN Zofran. Nausea has since resolved. Moves well with SBA. Surgical dressing C,D,&I with active ice in place. Pt also c/o generalized itching, no rash, redness, or welts visible. Pt was given PRN Benadryl IVP and reports improvement in her itching.
[2024-10-31] MEDS: CEFAZOLIN 1 GM in 0.9 % SODIUM CHLORIDE Mini-bag 100 ML IVPB (01:30)
[2024-10-31] MEDS: ACETAMINOPHEN 500 MG TABLET 1000 MG PO ×2 (04:25→10:15)
[2024-10-31 04:28] VITALS: BP 130/63; PULSE 86; RESP 16; TEMP 36.4; O2SAT 97
[2024-10-31 06:13] LABS: Hematocrit 26.1 % (33.0-51.0); Hemoglobin* 8.7 gm/dL (12.0-16.0); Mean Corpuscular HGB Conc 33 gm/dL (32-36); Mean Corpuscular Hemoglobin 31 pg (26-34); Mean Corpuscular Volume 94 fL (80-100); Red Blood Count 2.79 m/uL (4.00-5.20); White Blood Count* 10.17 K/uL (4.50-11.00)
[2024-10-31 06:17] LABS: Slide Review Reflex No
--- NOTE | 2024-10-31 06:40 | PC.NURSE ---
End of shift (2718-1527): Pt pleasant, alert and oriented. VSS. Pain minimal, rated 2/10. SBA, tolerated well. Denies nausea and dizziness. Dressing C/D/I, ice pack to op site. Pt in bed, appears to be resting, call light within reach.? ??
[2024-10-31 07:00] VITALS: RESP 18; O2SAT 96
--- NOTE | 2024-10-31 07:24 | PM.ORPN ---
Subjective Subjective Time Seen by Provider: 07:10 Date Seen: 10/31/24 Principal diagnosis: Status post left hip replacement Interval history: Shefali is comfortable. She will be discharging today. Ortho Exam Narrative Exam Narrative: Alert and oriented x3. Patient is in no acute distress. Converses without labored breathing. Hearing is grossly intact. Ambulates with a walker. Examination of the left hip shows ecchymosis is present. Minimal soft tissue edema. Dressing is intact. CMS intact left lower extremity. Calves are soft and nontender. She is not able to straight leg raise. Const Vital Signs, click to edit/add: Vital Signs - 24 hr 10/30/24 08:40 10/30/24 09:05 10/30/24 09:10 Temperature Pulse Rate 78 74 79 Pulse Rate [Pulse Oximeter] Respiratory Rate 16 16 16 Blood Pressure 130/81 113/101 H 102/69 Blood Pressure [Right Arm] Pulse Oximetry 99 100 100 Oxygen Delivery Method Nasal Cannula Oxygen Flow Rate 2 10/30/24 11:43 10/30/24 11:45 10/30/24 11:46 Temperature 97.4 F L Pulse Rate 60 64 Pulse Rate [Pulse Oximeter] Respiratory Rate 16 16 Blood Pressure 64/52 L 74/47 L 117/80 Blood Pressure [Right Arm] Pulse Oximetry 93 95 Oxygen Delivery Method Room Air Oxygen Flow Rate 10/30/24 11:50 10/30/24 11:55 10/30/24 12:00 Temperature Pulse Rate 81 81 96 Pulse Rate [Pulse Oximeter] Respiratory Rate 18 15 16 Blood Pressure 109/71 113/54 L 105/54 L Blood Pressure [Right Arm] Pulse Oximetry 96 98 97 Oxygen Delivery Method Oxygen Flow Rate 10/30/24 12:05 10/30/24 12:10 10/30/24 12:15 Temperature 97.6 F Pulse Rate 83 87 89 Pulse Rate [Pulse Oximeter] Respiratory Rate 16 18 16 Blood Pressure 93/62 106/62 108/64 Blood Pressure [Right Arm] Pulse Oximetry 96 95 100 Oxygen Delivery Method Room Air Oxygen Flow Rate 10/30/24 12:25 10/30/24 12:44 10/30/24 13:00 Temperature 97.4 F L 97.4 F L 97.2 F L Pulse Rate 83 82 70 Pulse Rate [Pulse Oximeter] Respiratory Rate 16 16 18 Blood Pressure 107/63 115/65 112/57 L Blood Pressure [Right Arm] Pulse Oximetry 96 97 100 Oxygen Delivery Method Room Air Room Air Room Air Oxygen Flow Rate 10/30/24 13:15 10/30/24 13:30 10/30/24 14:00 Temperature 97.4 F L 97.4 F L 97.3 F L Pulse Rate 78 89 75 Pulse Rate [Pulse Oximeter] Respiratory Rate 16 18 18 Blood Pressure 106/60 104/66 93/58 L Blood Pressure [Right Arm] Pulse Oximetry 97 93 93 Oxygen Delivery Method Room Air Room Air Room Air Oxygen Flow Rate 10/30/24 14:30 10/30/24 15:00 10/30/24 15:00 Temperature 97.4 F L Pulse Rate 76 Pulse Rate [Pulse Oximeter] 86 Respiratory Rate 16 16 16 Blood Pressure 103/55 L Blood Pressure [Right Arm] Pulse Oximetry 93 96 Oxygen Delivery Method Room Air Room Air Oxygen Flow Rate 10/30/24 15:30 10/30/24 16:30 10/30/24 17:30 Temperature 97.9 F 97.8 F Pulse Rate 86 82 92 Pulse Rate [Pulse Oximeter] Respiratory Rate 16 16 16 Blood Pressure 104/62 97/78 110/65 Blood Pressure [Right Arm] Pulse Oximetry 96 96 98 Oxygen Delivery Method Room Air Room Air Room Air Oxygen Flow Rate 10/30/24 18:30 10/30/24 19:30 10/30/24 23:00 Temperature Pulse Rate 90 92 Pulse Rate [Pulse Oximeter] 86 Respiratory Rate 16 16 16 Blood Pressure 68/55 L 118/63 Blood Pressure [Right Arm] Pulse Oximetry 96 98 Oxygen Delivery Method Room Air Room Air Oxygen Flow Rate 10/30/24 23:00 10/30/24 23:00 10/31/24 04:28 Temperature 97.6 F 97.6 F Pulse Rate Pulse Rate [Pulse Oximeter] 88 86 Respiratory Rate 16 16 Blood Pressure Blood Pressure [Right Arm] 116/56 L 130/63 Pulse Oximetry 96 96 97 Oxygen Delivery Method Room Air Room Air Room Air Oxygen Flow Rate Assessment and Plan Assessment and plan (1) History of total left hip arthroplasty: Problem details: Left total hip arthroplasty (10/30/2024, Dr. Damian) Status: Acute Assessment and Plan: Plan for discharge is today, and when they meets discharge criteria. DVT prophylaxis upon discharge includes Xarelto 10mg daily for a total of 5 days, then Aspirin 81mg twice daily for 30 days. Remove dressing 1 week. Observe wound and phone Orthopedics with any questions or concerns Use Ice on operative hip unrestricted. Return to clinic in 10d-2 weeks for a wound check Return to clinic in 6 weeks with surgeon Minimize narcotic use. Wean off and discontinue soon as possible. Activities as tolerated. No strenuous activity. Attend outpt PT Oxycodone causes constipation for her. She has a planned regimen of senna and MiraLax use. We discussed that she does not need to use oxycodone if her pain is tolerable with acetaminophen use only. Or if she does not tolerate oxycodone she will call the office and we can try something else. She agrees with the plan.
[2024-10-31 08:00] VITALS: BP 122/70; PULSE 88; RESP 18; TEMP 36.9; O2SAT 96
[2024-10-31] MEDS: SENNOSIDES 1 TAB TABLET 2 TAB PO (08:47)
[2024-10-31] MEDS: RIVAROXABAN 10 MG TABLET PO (08:48)
--- NOTE | 2024-10-31 11:37 | PC.NURSE ---
Discharge: Patient pleasant and cooperative, A&O. VSS, afebrile. SpO2 maintained above 90% on RA. Patient reports pain in her left hip this shift, managed with scheduled medication, see MAY. Dressing to left hip C/D/I/. Discharge instructions provided, all questions answered. D/C to home via wheelchair.
== END 2024-10-31 10:30 | disposition home or self-care (01) ==
LOC: OR 07:34 → MEDSURG 07:35
PROVIDERS: Internal Medicine; PCP Family Medicine; Visit Provider Orthopaedic Surgery
PROC: (CPT 27130; principal; 2024-10-30 08:45)
DX: M16.12 Unilateral primary osteoarthritis, left hip (principal); G89.18 Other acute postprocedural pain; I95.81 Postprocedural hypotension; K21.9 Gastro-esophageal reflux disease without esophagitis; Z79.82 Long term (current) use of aspirin; G43.B0 Ophthalmoplegic migraine, not intractable
CPT/HCPCS: 27130; 01214; 36415; 64450; 73501; 76000; 76942; 85027; 86850; 86900; 86901; 97110; 97116; 97161; 97165; 97530; 97535; 99100; A9270; C1776; J0330; J0690; J1171; J1200; J2250; J2371; J2405; J2704; J2795; J3010; J3490; J7030; J7120